=== PATIENT | male | born 1950 | race Caucasian/White ===

== ENCOUNTER 2020-10-01 07:36 | Outpatient (REF) | payer BC, SELFPAY ==
[2020-10-01 10:08] LABS: Hematocrit 40.3 % (42-52); Hemoglobin 13.7 g/dl (14.0-18.0); Mean Corpuscular Hemoglobin 29.5 pg (27.0-33.0); Mean Corpuscular Volume 86.9 fL (80-98); Mean Platelet Volume 12.1 fL (9.4-12.4); Platelet Count 165 X10*3/uL (160-400); Red Blood Count 4.64 X10*6/uL (4.60-5.80); Red Cell Distribution Width 13.5 % (11.0-16.0); White Blood Count 7.3 X10*3/uL (4.8-10.8)
[2020-10-01 10:54] LABS: Alanine Aminotransferase 24 U/L (0-40); Albumin Level 4.3 g/dL (3.5-5.0); Alkaline Phosphatase 87 U/L (39-117); Anion Gap 13 (12-20); Aspartate Amino Transferase 22 U/L (5-37); Bilirubin Direct 0.2 mg/dL (0.0-0.5); Bilirubin Total 0.5 mg/dL (0.0-1.0); Blood Urea Nitrogen 30 mg/dL (9-16); Calcium 8.9 mg/dL (8.4-10.2); Carbon Dioxide 26 mmol/L (22-29); Chloride 106 mmol/L (96-108); Cholesterol 154 mg/dL; Estimated Glomerular Filt Rate > 60; Glucose Fasting 97 mg/dL (60-99); HDL Cholesterol 55 mg/dL; LDL Cholesterol Calculated 79 mg/dl; Potassium 3.9 mmol/l (3.3-5.1); Sodium 141 mmol/L (135-145); Total Protein 7.3 g/dL (6.5-8.0); Triglycerides 101 mg/dL
[2020-10-01 11:00] LABS: Prostate Specific Antigen 1.16 ng/mL (<0.05-4.0)
== END 2020-10-01 07:37 | disposition home or self-care (01) ==
LOC: HO.10HDL 07:36
DX: E78.5 Hyperlipidemia, unspecified (principal); R53.83 Other fatigue; R35.1 Nocturia
CPT/HCPCS: 36415; 80053; 80061; 80076; 82248; 84153; 85027

== ENCOUNTER → 2020-11-18 08:26 | Outpatient (BNVA) | payer BC, SELFPAY | PROVIDERS: PCP Internal Medicine; Visit Provider Internal Medicine | DX: I95.0 Idiopathic hypotension (principal); I35.8 Other nonrheumatic aortic valve disorders; E78.5 Hyperlipidemia, unspecified; Z82.49 Family history of ischemic heart disease and other diseases of the circulatory system | CPT/HCPCS: 93005 ==

== ENCOUNTER → 2020-12-25 08:28 | Outpatient (REF) | payer BC, SELFPAY ==
--- NOTE | 2020-12-25 08:31 | CA_ITS ---
Transthoracic Echocardiogram Patient (Last, First, Middle): Shreyas Byrnes A Gender: Male Date of : 1950 Age: 70 Procedure Date: 12/25/2020 Procedure Type: Transthoracic Echocardiogram Location: OP Height: 167.64 cm Weight: 78.02 kg BSA: 1.88 m2 Heart Rate: bpm BP: 134 / 78 mmHg Sweet Pickled Fruit Maker: CATHERINE Referring MD: Wali Madrigal MD Tooth Cutter Contact Wheel: Jalil Lewis MD Symptoms: I95.0 - Idiopathic hypotension Study Quality: Fair ECG Rhythm: Sinus Conclusions: - 1. Normal LV systolic function with impaired relaxation filling pattern 2. Mild aortic stenosis and trivial to mild aortic regurgitation 3. Moderate mitral and calcification with mild mitral regurgitation 4. Normal RV systolic pressure 5. No pericardial effusion Findings Left Ventricle Normal left ventricular size, thickness, and systolic function. The visually estimated ejection fraction is between 60-65%. Spectral Doppler is indicative of an impaired relaxation filling pattern. E/E prime ratio is between 8 and 15 consistent with indeterminate filling pressures. Right Ventricle Normal right ventricular cavity size and systolic function. Atria Both atria are normal in size. There is lipomatous hypertrophy of the interatrial septum. Interatrial shunt cannot be excluded. Aortic Valve There is moderate calcification of the aortic valve. There is moderate thickening of the aortic valve. There is mild aortic valve stenosis. The mean gradient is 12 mmHg. The aortic valve area is 1.70 cm2. There is trace (trivial) aortic valve regurgitation. Mitral Valve There is mild anterior mitral leaflet thickening. There is moderate mitral annular calcification. There is mild mitral valve regurgitation. There is no mitral valve stenosis. Pulmonic Valve The pulmonic valve was not well visualized. Tricuspid Valve Likely normal tricuspid valve structure and function. There is mild tricuspid valve regurgitation. The right ventricular systolic pressure is normal. The right ventricular systolic pressure is 26 mmHg. Normal right atrial pressure. There is no evidence of pulmonary hypertension. Great Vessels All visible segments of the aorta are normal in size. The pulmonary artery was not well visualized. Venous The inferior vena cava is normal in size and collapses greater than 50% with inspiration. Pericardium/Pleural There is no evidence of pericardial effusion. Prior Study Comparison No prior study available for comparison. Measurements 2D Linear Measurements IVSd: 1.13 0.6-0.9/0.6-1.0 cm LVIDd: 4.06 3.9-5.3/4.2-5.9 cm LVIDd Index: 2.16 2.4-3.2/2.2-3.1 cm/m2 LVIDs: 2.54 2.0-3.6 cm LVPWd: 0.93 0.7-1.1 cm Ao Root: 2.70 2.1-3.5 cm LA Diam: 3.20 2.7-3.8/3.0-4.0 cm LAIDs Index: 1.70 1.5-2.3 cm/m2 LV Mass: 168.56 67-162/88-224 g LV Mass Index: 89.66 43-95/49-115 g/m2 LVOT Diam: 2.00 3.0+(-)1.3 cm 2D Systolic Function EF 4C: 55.00 >55% EF 2C: 72.70 >55% EF BiP: 67.30 >55% Mitral Valve MV Pk E: 0.75 MV PK A: 0.83 MV Decel Time: 222.00 E/A: 0.90 E'Lateral: 5.11 E'Medial: 4.68 E/E' Med: 16.10 E/E' Lat: 14.70 PHT: 65.00 MVA PHT: 3.38 Decel Pike: 3.39 Aortic Valve AoV Pk Neri: 2.37 AoV Mn Neri: 1.61 AoV VTI: 0.47 AoV Pk Grad: 22.00 Aov Mn Grad: 12.00 FRAN Cont.VTI: 1.70 AI Pk Neri: 3.91 AI Pike: 2.34 LVOT LVOT Pk Neri: 1.26 LVOT Mn Neri: 0.83 LVOT VTI: 0.25 LVOT Pk Grad: 6.00 LVOT Mn Grad: 3.00 LVOT Diam: 2.00 LVOT Area: 3.14 Diastolic Function MV Pk E: 0.75 MV Pk A: 0.83 E/A: 0.90 E'Medial: 4.68 E/E' Med: 16.10 E' Laterial: 5.11 E/E' Lat: 14.70 Tricuspid Valve TR Pk Neri: 2.38 TR Pk Grad: 23.00 RA Press: 3.00 RVSP: 26.00 Great Vessels Aorta Ao Root-2D: 2.70 2.0-3.7 cm Ao Asc: 3.40 2.1-3.4 cm Updated in Other Vendor System with Status of Final Jalil Lewis MD electronically signed on 12/26/2020 11:33:31 AM with status of Final
--- NOTE | 2020-12-25 08:31 | CA_ITS ---
Acquisition Time: 2020-12-25 09:26:17 Total Exercise Time: 00:06:20 Test Indications: Z82.49 Medications: SEE CHART Protocol: TARSHA Max HR: 146 BPM 97% of Pred: 149 BPM Max BP: 170/088 mmHG Max Work Load: 7.5 METS Exercise stress test using Tarsha protocol. Total of 6 min 20 sec. METS 7.90, TAPHR up to 87%. EKG without arrhythmias, no ischemic changes seen during exercise or in recovery. Normotensive response to exercise. Test reviewed with Dr. Madrigal. Referred By: Wali Madrigal Overread By: Antonietta Garber NP
== END ==
LOC: HO.CARD 08:28
PROVIDERS: PCP Internal Medicine; Visit Provider Internal Medicine
DX: I95.0 Idiopathic hypotension (principal); Z82.49 Family history of ischemic heart disease and other diseases of the circulatory system
CPT/HCPCS: 93016; 93017; 93018; 93306

== ENCOUNTER → 2020-12-31 08:14 | Outpatient (BNVA) | payer BC, SELFPAY | PROVIDERS: PCP Internal Medicine; Visit Provider Internal Medicine ==

== ENCOUNTER 2021-01-29 10:03 | Outpatient (REF) | payer BC, SELFPAY ==
--- NOTE | ~2021-01-29 | XR_ITS ---
EXAMINATION: XR ANKLE, LEFT CLINICAL INFORMATION: Pain COMPARISON: Radiographs left foot 04/08/2015, left ankle 08/01/2007 TECHNIQUE: AP, lateral, and mortise views of the left ankle. FINDINGS: There is no fracture, dislocation, destructive process. The malleoli are intact and the ankle mortise is symmetric. The talar dome shows no osteochondral lesion. There is no ankle joint narrowing or erosive change or visible chondrocalcinosis. The subtalar joint is unremarkable. The retrocalcaneal recess is preserved. There are are small plantar and borderline posterior calcaneal spurs. XR/XR ankle LT 2V IMPRESSION: Small posterior and plantar calcaneal spurs.
[2021-01-29 11:19] LABS: Uric Acid 4.5 mg/dL (3.4-7.0)
== END 2021-01-29 10:04 | disposition home or self-care (01) ==
LOC: HO.LAB 10:03
PROVIDERS: PCP Internal Medicine; Visit Provider Internal Medicine
DX: M25.572 Pain in left ankle and joints of left foot (principal); M10.9 Gout, unspecified
CPT/HCPCS: 36415; 73600; 84550

== ENCOUNTER 2021-04-21 06:56 | Outpatient (REF) | payer BC, SELFPAY ==
[2021-04-21 08:09] LABS: Cholesterol 141 mg/dL; HDL Cholesterol 50 mg/dL; LDL Cholesterol Calculated 73 mg/dl; Triglycerides 94 mg/dL
== END 2021-04-21 06:57 | disposition home or self-care (01) ==
LOC: HO.LAB 06:56
PROVIDERS: PCP Internal Medicine; Visit Provider Internal Medicine
DX: E11.9 Type 2 diabetes mellitus without complications (principal)
CPT/HCPCS: 36415; 80061

== ENCOUNTER → 2021-06-30 08:42 | Outpatient (BNVA) | payer BC, SELFPAY | PROVIDERS: PCP Internal Medicine; Referring Provider Internal Medicine; Visit Provider Internal Medicine ==

== ENCOUNTER 2021-10-09 06:46 | Outpatient (REF) | payer MEDICARE, BC, SELFPAY ==
[2021-10-09 07:46] LABS: Alanine Aminotransferase 21 U/L (0-40); Albumin Level 4.2 g/dL (3.5-5.0); Alkaline Phosphatase 83 U/L (39-117); Anion Gap 7 (12-20); Aspartate Amino Transferase 23 U/L (5-37); Bilirubin Total 0.9 mg/dL (0.0-1.0); Blood Urea Nitrogen 17 mg/dL (9-16); Calcium 9.7 mg/dL (8.4-10.2); Carbon Dioxide 30 mmol/L (22-29); Chloride 107 mmol/L (96-108); Cholesterol 160 mg/dL; Estimated Glomerular Filt Rate > 60; Glucose Fasting 90 mg/dL (60-99); HDL Cholesterol 55 mg/dL; LDL Cholesterol Calculated 81 mg/dl; Potassium 3.3 mmol/L (3.3-5.1); Sodium 141 mmol/L (135-145); Total Protein 7.5 g/dL (6.5-8.0); Triglycerides 122 mg/dL
== END 2021-10-09 06:47 | disposition home or self-care (01) ==
LOC: HO.LAB 06:46
PROVIDERS: PCP Internal Medicine; Visit Provider Internal Medicine
DX: Z00.00 Encounter for general adult medical examination without abnormal findings (principal)
CPT/HCPCS: 36415; 80053; 80061

== ENCOUNTER 2022-02-16 06:48 | Outpatient (REF) | payer MEDICARE, BC, SELFPAY ==
[2022-02-16 07:51] LABS: Cholesterol 150 mg/dL; HDL Cholesterol 60 mg/dL; LDL Cholesterol Calculated 73 mg/dl; Triglycerides 86 mg/dL
== END 2022-02-16 06:49 | disposition home or self-care (01) ==
LOC: HO.LAB 06:48
PROVIDERS: PCP Internal Medicine; Visit Provider Internal Medicine
DX: E11.9 Type 2 diabetes mellitus without complications (principal)
CPT/HCPCS: 36415; 80061

== ENCOUNTER → 2022-06-22 09:31 | Outpatient (REF) | payer MEDICARE, BC, SELFPAY ==
--- NOTE | 2022-06-22 09:33 | CA_ITS ---
Transthoracic Echocardiogram Patient (Last, First, Middle): Shreyas Byrnes A Gender: Male Date of : 1950 Age: 72 Procedure Date: 06/22/2022 Procedure Type: Transthoracic Echocardiogram Location: OP Height: 167.64 cm Weight: 73.48 kg BSA: 1.83 m2 Heart Rate: bpm BP: 120 / 82 mmHg Tunnel Heading Inspector: RIKA Referring MD: Wali Madrigal MD Symptoms: I35.0 - Nonrheumatic aortic (valve) stenosis Study Quality: Adequate ECG Rhythm: Sinus Conclusions: - The left ventricular systolic function is normal. The calculated ejection fraction is 61% by biplane method. - There is moderate calcification of the aortic valve. There is mild aortic valve stenosis. - There is mild mitral annular calcification. Findings Left Ventricle Normal left ventricular cavity size. The left ventricular systolic function is normal. The calculated ejection fraction is 61% by biplane method. There is no evidence of regional wall motion abnormalities. Diastolic function is normal for age. There is mild septal asymmetric hypertrophy. Right Ventricle Normal right ventricular cavity size and systolic function. Atria Both atria are normal in size. Aortic Valve There is moderate calcification of the aortic valve. There is mild aortic valve stenosis. The mean gradient is 17 mmHg. The aortic valve area is 1.85 cm2. There is trace (trivial) aortic valve regurgitation. Mitral Valve There is mild mitral annular calcification. There is trace mitral valve regurgitation. There is no mitral valve stenosis. Pulmonic Valve The pulmonic valve is likely normal. Tricuspid Valve Normal tricuspid valve structure. There is trace tricuspid valve regurgitation. There is no evidence of pulmonary hypertension. Great Vessels The asc aorta is normal in size. Venous The inferior vena cava is mildly dilated and collapses greater than 50% with inspiration. Pericardium/Pleural There is no evidence of pericardial effusion. Prior Study Comparison No significant change compared to prior study dated: 12/25/2020. Measurements 2D Linear Measurements IVSd: 1.07 0.6-0.9/0.6-1.0 cm LVIDd: 4.11 3.9-5.3/4.2-5.9 cm LVIDd Index: 2.25 2.4-3.2/2.2-3.1 cm/m2 LVIDs: 2.25 2.0-3.6 cm LVPWd: 0.97 0.7-1.1 cm LV Mass: 170.18 67-162/88-224 g LV Mass Index: 93.00 43-95/49-115 g/m2 LVOT Diam: 2.00 3.0+(-)1.3 cm 2D Systolic Function EF 4C: 59.00 >55% EF 2C: 65.30 >55% EF BiP: 61.40 >55% Mitral Valve MV Pk E: 0.84 MV PK A: 1.01 MV Decel Time: 294.00 E/A: 0.80 E'Lateral: 5.33 E'Medial: 5.22 E/E' Med: 16.20 E/E' Lat: 15.80 PHT: 86.00 MVA PHT: 2.56 Decel Toombs: 2.87 Aortic Valve AoV Pk Neri: 2.75 AoV Mn Neri: 1.94 AoV VTI: 0.62 AoV Pk Grad: 30.00 Aov Mn Grad: 17.00 FRAN Cont.VTI: 1.85 AI Pk Neri: 3.80 AI Toombs: 1.83 LVOT LVOT Pk Neri: 1.68 LVOT Mn Neri: 0.95 LVOT VTI: 0.37 LVOT Pk Grad: 11.00 LVOT Mn Grad: 5.00 LVOT Diam: 2.00 LVOT Area: 3.14 Diastolic Function MV Pk E: 0.84 MV Pk A: 1.01 E/A: 0.80 E'Medial: 5.22 E/E' Med: 16.20 E' Laterial: 5.33 E/E' Lat: 15.80 Right Ventricle TAPSE (mm): 24.30 TVS' Neri: 11.90 Tricuspid Valve TR Pk Neri: 2.30 TR Pk Grad: 21.00 RA Press: 8.00 RVSP: 29.00 Great Vessels Aorta Sinus of Valsalva: 3.64 2.0-3.[address] [place]: 2.85 1.7-3.4 cm Ao Asc: 3.60 2.1-3.4 cm Updated in Other Vendor System with Status of Final Wali Madrigal MD electronically signed on 06/22/2022 12:28:38 PM with status of Final
== END ==
LOC: HO.CARD 09:31
PROVIDERS: Visit Provider Internal Medicine
DX: I35.0 Nonrheumatic aortic (valve) stenosis (principal)
CPT/HCPCS: 93306

== ENCOUNTER → 2022-07-02 08:40 | Outpatient (BNVA) | payer MEDICARE, BC, SELFPAY | PROVIDERS: PCP Internal Medicine; Referring Provider Internal Medicine; Visit Provider Internal Medicine | DX: I95.0 Idiopathic hypotension (principal); I35.0 Nonrheumatic aortic (valve) stenosis; I05.9 Rheumatic mitral valve disease, unspecified; E78.5 Hyperlipidemia, unspecified; Z82.49 Family history of ischemic heart disease and other diseases of the circulatory system | CPT/HCPCS: 93005; 99212 ==

== ENCOUNTER 2022-08-24 07:14 | Outpatient (REF) | payer MEDICARE, BC, SELFPAY ==
[2022-08-24 07:21] LABS: MANUAL DIFF FLAG NO
[2022-08-24 07:58] LABS: Basophils Absolute Auto 0.1 X10*3/uL (0.0-0.2); Eosinophils Absolute Auto 0.2 X10*3/uL (0.0-0.4); Eosinophils Percent Auto 3.4 % (0-4); Hematocrit 39.7 % (42.0-52.0); Hemoglobin 13.8 g/dl (14.0-18.0); Imm Gran Abs Auto 0.02 X10*3/uL (0.00-0.03); Imm Gran Pct Auto 0.3 % (0.0-0.4); Lymphocytes Absolute Auto 2.8 X10*3/uL (1.2-4.9); Lymphocytes Percent Auto 39.4 % (20-40); Mean Corpuscular HGB Conc 34.8 g/dl (31.0-36.0); Mean Corpuscular Hemoglobin 30.5 pg (27.0-33.0); Mean Corpuscular Volume 87.6 fL (80.0-98.0); Mean Platelet Volume 11.7 fL (9.4-12.4); Monocytes Absolute Auto 0.6 X10*3/uL (0.1-1.2); Monocytes Percent Auto 8.7 % (2-11); Neutrophils Absolute Auto 3.3 x10*3/uL (2.0-8.3); Neutrophils Percent Auto 47.2 % (45-73); Platelet Count 156 X10*3/uL (160-400); Red Blood Count 4.53 X10*6/uL (4.60-5.80); Red Cell Distribution Width 13.2 % (11.0-16.0)
[2022-08-24 08:42] LABS: Alanine Aminotransferase 25 U/L (0-40); Albumin Level 4.2 g/dL (3.5-5.0); Alkaline Phosphatase 85 U/L (39-117); Aspartate Amino Transferase 23 U/L (5-37); Bilirubin Total 0.6 mg/dL (0.0-1.0); Blood Urea Nitrogen 20 mg/dL (9-16); Calcium 9.4 mg/dL (8.4-10.2); Cholesterol 150 mg/dL; Estimated Glomerular Filt Rate > 60; Glucose Fasting 92 mg/dL (60-99); HDL Cholesterol 58 mg/dL; LDL Cholesterol Calculated 78 mg/dl; Prostate Specific Antigen Scr 0.98 ng/mL (<0.05-4.0); Total Protein 7.3 g/dL (6.5-8.0); Triglycerides 73 mg/dL
[2022-08-24 09:19] LABS: Anion Gap 13 (12-20); Carbon Dioxide 27 mmol/L (22-29); Chloride 107 mmol/L (96-108); Potassium 3.7 mmol/L (3.3-5.1); Sodium 143 mmol/L (135-145)
== END 2022-08-24 07:15 | disposition home or self-care (01) ==
LOC: HO.LAB 07:14
PROVIDERS: PCP Internal Medicine; Visit Provider Internal Medicine
DX: Z00.00 Encounter for general adult medical examination without abnormal findings (principal); Z13.0 Encounter for screening for diseases of the blood and blood-forming organs and certain disorders involving the immune mechanism; Z12.5 Encounter for screening for malignant neoplasm of prostate
CPT/HCPCS: 36415; 80053; 80061; 84153; 85025

== ENCOUNTER 2022-12-02 08:11 | Outpatient (REF) | payer MEDICARE, BC, SELFPAY ==
[2022-12-02 09:03] LABS: Anion Gap 13 (12-20); Blood Urea Nitrogen 17 mg/dL (9-16); Calcium 9.7 mg/dL (8.4-10.2); Carbon Dioxide 27 mmol/L (22-29); Chloride 106 mmol/L (96-108); Cholesterol 164 mg/dL; Estimated Glomerular Filt Rate > 60; Glucose Random 92 mg/dL (60-115); HDL Cholesterol 53 mg/dL; LDL Cholesterol Calculated 94 mg/dl; Potassium 3.9 mmol/L (3.3-5.1); Sodium 142 mmol/L (135-145); Triglycerides 85 mg/dL
== END 2022-12-02 08:12 | disposition home or self-care (01) ==
LOC: HO.LAB 08:11
PROVIDERS: PCP Internal Medicine; Visit Provider Internal Medicine
DX: N20.0 Calculus of kidney (principal); E78.5 Hyperlipidemia, unspecified
CPT/HCPCS: 36415; 80048; 80061

== ENCOUNTER 2022-12-10 08:47 | Outpatient (REF) | payer MEDICARE, BC, SELFPAY ==
--- NOTE | ~2022-12-10 | CT_ITS ---
EXAMINATION: CT CHEST WITH CONTRAST CLINICAL INFORMATION: Solitary pulmonary nodule COMPARISON: None available. TECHNIQUE: Multidetector volumetric CT imaging of the chest was obtained after the administration of 50 mL of Omnipaque 350 intravenous contrast without immediate adverse reactions. Axial MIP volume rendering provided. Sagittal and coronal reformatted images were obtained. This CT examination was performed using dose optimization techniques as appropriate, variously including the following: *Automated exposure control *Adjustment of mA and/or kV according to patient size (this includes techniques or standardized protocols for targeted exams where dose is matched to indication/reason for exam; i.e. extremities or head) *Use of iterative reconstruction technique DLP: 116 mGy-cm FINDINGS: WIND TECHNICIAN: Hyperinflated lungs LUNGS: The lungs are hyperinflated and clear of acute pneumonic process. There are a few scattered pulmonary nodules visualized. A 1 mm nodule, right upper lobe, axial image 93/6; 2 mm nodule, right upper lobe, axial image 99/6; 2 mm nodule, right lower lobe medially, axial image 107/6; 2 mm nodule, right middle lobe, axial image 135/6; 57 mm nodule, right lower lobe, axial image 147/6; 5 mm nodule, left lower lobe, 147/6; 2 mm nodules, left lower lobe, axial image 150/6, 145/6; 7 mm nodule, right middle lobe, axial image 153/6. There are several additional nodules seen in lung bases which are 4 mm and less, axial image 151/6. MEDIASTINUM: The heart size and the great vessels are normal caliber. No pericardial effusion seen. There is moderate coronary artery calcifications. The central trachea and the bronchi are widely patent. The thyroid lobes are symmetrical and normal. PLEURA: There is no pleural effusion. No pleural mass or thickening. AXILLA: No lymphadenopathy. UPPER ABDOMEN: Visualized liver, spleen, pancreas and bilateral adrenal glands are unremarkable. OSSEOUS STRUCTURES: No aggressive lytic or sclerotic process seen. The paravertebral soft tissues are normal. CT/CT chest w IV con IMPRESSION: 1. Hyperinflated lungs with multiple bilateral pulmonary nodules. The largest nodule measures 7 mm in the right middle lobe. 2. No abnormal mediastinal or axillary lymphadenopathy seen. 3. Moderate coronary artery calcifications. 4. High Risk Patient: CT at 3-6 months, then CT at 18-24 months. Fleischner guidelines were followed.
[2022-12-10] MEDS: iohexoL 350 MG/ML 100 ML INFUS..BTL IV (09:17)
== END 2022-12-10 08:48 | disposition home or self-care (01) ==
LOC: HO.CT 08:47
PROVIDERS: Visit Provider Internal Medicine
DX: R91.1 Solitary pulmonary nodule (principal)
CPT/HCPCS: 71260; Q9967

== ENCOUNTER → 2023-01-07 08:46 | Outpatient (BNVA) | payer MEDICARE, BC, SELFPAY | PROVIDERS: PCP Internal Medicine; Visit Provider Urology | DX: N20.0 Calculus of kidney (principal) | CPT/HCPCS: 99202 ==

== ENCOUNTER 2023-01-20 09:35 | Outpatient (REF) | payer MEDICARE, BC, SELFPAY ==
--- NOTE | ~2023-01-20 | CT_ITS ---
EXAMINATION: CT ABDOMEN AND PELVIS WITHOUT CONTRAST CLINICAL INFORMATION: Kidney stone COMPARISON: Previous chest CT 12/10/2022 TECHNIQUE: Multidetector volumetric imaging was performed from the superior aspect of the liver through the pubic symphysis. Sagittal and coronal reformatted images were obtained on the technologist's workstation. This CT examination was performed using dose optimization techniques as appropriate, variously including the following: *Automated exposure control *Adjustment of mA and/or kV according to patient size (this includes techniques or standardized protocols for targeted exams where dose is matched to indication/reason for exam; i.e. extremities or head) *Use of iterative reconstruction technique DLP: 336 mGy-cm FINDINGS: LUNG BASES: Small bilateral pulmonary nodules. Largest pulmonary nodule measures 6 mm in the right middle lobe axial image 7. These appear unchanged from November [address] Small bilateral posterior diaphragmatic hernias containing fat. LIVER, GALLBLADDER, AND BILIARY TREE: The liver is normal in size, shape, and attenuation. No focal hepatic lesion or biliary ductal dilatation is present. The gallbladder is unremarkable with no evidence of radiopaque gallstones, gallbladder wall thickening, or obvious pericholecystic inflammatory changes. PANCREAS: Unremarkable. SPLEEN: Unremarkable. ADRENAL GLANDS: Unremarkable. KIDNEYS AND URETERS: The kidneys are normal in size, shape, and attenuation. No hydronephrosis, hydroureter, or calculi seen. No perinephric stranding. BLADDER: Enlarged prostate gland that protrudes into the base of the bladder. Bladder is otherwise unremarkable. GASTROINTESTINAL TRACT: Diverticulosis of the colon. The small and large bowel are otherwise unremarkable. The appendix is unremarkable. ABDOMINAL WALL: No significant hernia is appreciated. LYMPH NODES: Normal. VASCULAR: Severe atherosclerotic disease. PELVIC VISCERA: The prostate gland is slightly enlarged and protrudes into the base of the bladder. Prostate gland measures 3.5 x 4.5 cm in AP and transverse dimension. OSSEOUS STRUCTURES: Degenerative changes of the spine. CT/CT abdomen pelvis wo IV con IMPRESSION: No stone seen. Slightly enlarged prostate gland that protrudes into the base of the bladder. Diverticulosis. Severe atherosclerotic disease. Bilateral pulmonary nodules. These are unchanged from recent chest CT November 2022. Fleischner guidelines were followed.
== END 2023-01-20 09:36 | disposition home or self-care (01) ==
LOC: HO.CT 09:35
PROVIDERS: PCP Internal Medicine; Visit Provider Urology
DX: N20.0 Calculus of kidney (principal); R10.9 Unspecified abdominal pain
CPT/HCPCS: 74176

== ENCOUNTER 2023-02-17 10:45 | Outpatient (AMB) | payer MEDICARE, BC, SELFPAY ==
--- NOTE | 2023-02-17 10:47 | A.OFFVIS_ITS ---
Intake Intake Visit Reasons: 6w/ct(set)/[facility](set) Intake Note: Patient is present for follow up nephrolithiasis/CT/[facility] Medications: none Blood Thinner: none Loan Specialist Required: No Accompanied by: Self / Same As Patient Allergies No Known Allergies Allergy (Verified 03/02/23 09:43) Medication List - Last Reconciled 02/17/23 by Rodrigo Bhagat MD atorvastatin 80 mg PO DAILY ezetimibe 10 mg PO DAILY fludrocortisone 0.1 mg PO DAILY tamsulosin 0.4 mg PO DAILY HPI HPI Comments History of Present Illness Details Shreyas is a 73-year-old male who presents to the office who presents to the office for discussion of 24-hour urine test results. LV?01/06/23--Shreyas is a 72-year-old male who presents to the office as a new patient evaluation with history of nephrolithiasis. The patient has history of renal calculi 10 years ago. Mentions having recent episode of renal calculi earlier this year for which he visited the [facility] ER. Mentions having left side flank pain. Denies passing the stone. Denies gross hematuria.Denies right side flank pain.Former smoker and quit smoking in 1982. Evaluation-- Blood: trace, leukocytes: negative. On exam: No CVA tenderness noted. PSA results reviewed?08/24/22--0.98. Will obtain copy of imaging done at [facility], in discussion with the patient there was apparently a lung nodule visualized, he has had a CT chest done for further evaluation which was reviewed today. Plan:Advised to consume adequate amount of water. Advised to reduce down sodium consumption. CTAP without contrast was ordered. 24-hour urine collection was ordered. 02/17/23-- The patient is taking tamsulosin 0.4 mg daily without any reported side effects. Evaluation today-- Blood: negative, leukocytes: negative. CTAP results reviewed?01/20/23-- no renal calculi noted. Mildly enlarged prostate noted. Discussed 24 hour urine results?collected 01/21/23-- Total volume 1.61 L, Calcium 179 mg; Oxalate 29 mg, Sodium 137, Citrate 725 mg. Instructed on importance of fluid intake, Low oxalate diet, low sodium diet. Plan: Discussed to consume 2-2.5 liters of water daily. Repeat PSA blood work. Follow-up after one year. [facility] Medical History Family history of coronary artery disease Hyperlipidemia Hypotension Idiopathic hypotension Mitral annular calcification Nonrheumatic aortic (valve) stenosis Other and unspecified hyperlipidemia Surgical History History of hernia surgery History of nasal surgery Family History Mother No problems noted. Father High cholesterol History of open heart surgery Brother History of heart artery stent Social History Housing: House Alcohol intake: current Alcohol intake frequency: a few times a week Alcohol type: wine Patient Tobacco Use Status: Never used Tobacco e-Cigarette/Vaping Use: Never Used Second Hand Smoke Exposure: No service: Yes Current occupational status: retired Cognitive needs: No Hearing needs: No Vision needs: Yes (glasses) Review of Systems Const All systems reviewed & are unremarkable except as noted in HPI and below Reports no additional complaints Eyes Reports no additional complaints ENT Denies neck pain Card Denies leg edema Resp Denies cough GI Denies constipation Musc Reports no additional complaints and Denies neck pain Skin/Breast Denies rash and Denies unusual bruising Neuro Reports no additional complaints Psych Reports no additional complaints Endo Reports no additional complaints Duc/Lymph Reports no additional complaints Aller/Immun Reports no additional complaints Physical Exam Const General: healthy appearing, no acute distress and well developed Orientation/consciousness: patient oriented x3 HEENT Head: Yes normocephalic and Yes atraumatic Eyes Conjunctivae: conjunctivae normal Neck Neck: Yes normal visual inspection Chest Chest palpation & inspection: normal inspection of the chest Resp Effort & Inspection: normal respiratory effort Cardio Rate: regular rate GI Inspection: Yes normal to inspection General: Yes no CVA tenderness Back/Spine/Pelvis Back: no CVA tenderness Skin General skin exam: no rashes or lesions noted Neuro General: patient oriented x3 Extrem General: No pedal edema Psych Appearance: grossly normal Affect: normal affect Results AMB Urinalysis, Automated UA Leukoctes 0 Star/uL Last Edit by Emma Foster on 02/17/23 11:07 UA Nitrite Negative Last Edit by Brandyce Bress on 02/17/23 11:07 UA Urobilinogen 0.2 mg/dL Last Edit by Brandyce Bress on 02/17/23 11:07 UA Protein 0 mg/dL Last Edit by Jeanniee Aurass on 02/17/23 11:07 UA pH 6.0 Last Edit by Everettyce Bress on 02/17/23 11:07 UA Blood 0 Kervin/uL Last Edit by Jeanniee Bress on 02/17/23 11:07 UA Specific [place] 1.020 Last Edit by Brandyce Bress on 02/17/23 11:07 UA Ketone Negative Last Edit by Akademosronniee Bress on 02/17/23 11:07 UA Bilirubin 0 mg/dL Last Edit by Akademosrico Foster on 02/17/23 11:07 UA Glucose 0 mg/dL Last Edit by Emma Foster on 02/17/23 11:07 Results Reviewed Results Reviewed: Laboratory Last Values Urine pH (Auto) 6.0 02/17/23 10:53 Specific [place] (Auto) 1.020 02/17/23 10:53 Urine Protein (Auto) 0 mg/dL 02/17/23 10:53 Glucose (UA)(Auto) 0 mg/dL 02/17/23 10:53 Urine Ketones (Auto) Negative 02/17/23 10:53 Urine Blood (Auto) 0 Kervin/uL 02/17/23 10:53 Urine Nitrite (Auto) Negative 02/17/23 10:53 Urine Bilirubin (Auto) 0 mg/dL 02/17/23 10:53 Urine Urobilinogen (Auto) 0.2 mg/dL 02/17/23 10:53 Leukocyte Esterase (Auto) 0 Star/uL 02/17/23 10:53 Assessment & Plan Assessment & Plan (1) Screening PSA (prostate specific antigen): Code(s): Z12.5 - Encounter for screening for malignant neoplasm of prostate Plan Discussed to consume 2-2.5 liters of water daily. Repeat PSA blood work. Follow-up after one year. Orders: Orders PSA,Total (Free>4and<10) 9 Months Z12.5 - Encounter for screening for malignant neoplasm of prostate AMB Urinalysis Automated 02/17/23 Z13.9 - Encounter for screening, unspecified Coding Level of Care Code Est Pt Level 3 (39287) Diagnoses Screening PSA (prostate specific antigen) Z12.5
== END 2023-02-17 11:37 | disposition home or self-care (01) ==
LOC: HO.HUSH 10:45
PROVIDERS: PCP Internal Medicine; Visit Provider Urology
DX: Z12.5 Encounter for screening for malignant neoplasm of prostate (principal)
CPT/HCPCS: 99213

== ENCOUNTER → 2023-02-17 10:45 | Outpatient (BNVA) | payer MEDICARE, BC, SELFPAY | PROVIDERS: PCP Internal Medicine; Visit Provider Urology | DX: Z12.5 Encounter for screening for malignant neoplasm of prostate (principal) | CPT/HCPCS: 99212 ==

== ENCOUNTER → 2023-06-24 08:53 | Outpatient (REF) | payer MEDICARE, BC, SELFPAY ==
--- NOTE | ~2023-06-24 | NM_ITS ---
Exercise Myocardial perfusion study Indication: Screening for coronary artery disease. Family history Technique: The patient was brought in for an exercise perfusion study on 06/24/2023. Patient performed exercise as per Homero protocol and was injected 30 mCi of sestamibi was given intravenously one target HR was achieved. Images were obtained using the SPECT gamma camera interlaced with the gating device. Images were obtained in supine position. Resting perfusion study was performed on 06/28/2023. Patient was administered 30 mCi of sestamibi intravenously at rest. Images were then obtained in supine position. Images obtained with and without CT attenuation. Total DLP 69 mGy-cm. Images were processed with the software and compared side to side in short axis, horizontal long axis and vertical long axis views. Findings: The stress perfusion study showed non attenuated images show mildly reduced uptake in the inferior wall of the LV myocardium. Remainder of the LV myocardium is normally perfused. Attenuation corrected images show normal uptake of radiotracer in all segments of LV myocardium. The gated study shows normal LV systolic function with calculated LVEF of greater than 70%. LV cavity is normal in size. The gated study shows normal systolic wall thickening and contraction of all segments. There is no transient ischemic dilation. Resting study shows no change in perfusion pattern compared to stress perfusion study. Gating at rest reveals normal systolic wall motion with ejection fraction at greater than 70%. The findings are consistent with normal myocardial perfusion. NM/NM robin perf SPECT rest & str Impression: 1. Normal myocardial perfusion 2. Gated LVEF is greater than 70% 3. Transient ischemic dilatation not present Stress EKG is negative for ischemia at heart rate and workload achieved
--- NOTE | 2023-06-24 08:55 | CA_ITS ---
Acquisition Time: 2023-06-24 09:07:44 Total Exercise Time: 00:05:18 Test Indications: CAD Medications: SEE H Protocol: TARSHA Max HR: 134 BPM 91% of Pred: 146 BPM Max BP: 170/080 mmHG Max Work Load: 7.0 METS Exercise stress test exercise 5 min 18 sec of Tarsha protocol achieving 91% MPHR, without chest discomfort, with mild SOB, without arrhythmias, with normotensive response to exercise, without EKG changes for ischemia. Nuclear images pending. Test reviewed with Dr. Lewis Referred By: Wali Madrigal Overread By: Maria Ines Messer
== END ==
LOC: HO.CARD 08:53
PROVIDERS: PCP Internal Medicine; Visit Provider Internal Medicine
DX: Z13.89 Encounter for screening for other disorder (principal); Z82.49 Family history of ischemic heart disease and other diseases of the circulatory system
CPT/HCPCS: 78452; 93017; A9500

== ENCOUNTER → 2023-06-24 08:55 | Outpatient (BNV) | payer MEDICARE, BC, SELFPAY | PROVIDERS: PCP Internal Medicine; Visit Provider Nurse Practitioner | DX: R06.02 Shortness of breath (principal) | CPT/HCPCS: 78452; 93016; 93018 ==

== ENCOUNTER 2023-09-06 09:47 | Outpatient (AMB) | payer MEDICARE, BC, SELFPAY ==
[2023-09-06 09:48] VITALS: BP 132/64; PULSE 70; O2SAT 99; BMI 26.3
--- NOTE | 2023-09-06 09:48 | MHC.PC.OV ---
Vital Signs 09/06/23 09:48 Height 5 ft 6 in Weight 163 lb BMI 26.3 BP 132/64 Blood Pressure Location Lt brachial Position Sitting Pulse 70 Pulse Source Pulse Oximeter Pulse Oximetry (%) 99 Oxygen Delivery Method Room Air Intake Visit Reasons: PE Document Control Supervisor Required: No Haircutter: Not Required per policy Accompanied by: Self / Same As Patient Allergies No Known Allergies Allergy (Verified 09/06/23 09:49) Medication List - Last Reconciled 09/06/23 by Guanako Akers MD atorvastatin 80 mg PO DAILY ezetimibe 10 mg PO DAILY fludrocortisone 0.1 mg PO DAILY tamsulosin 0.4 mg PO DAILY Tobacco use date assessed: 03/02/23 Fall risk assessment: No Falls in past year Last assessed Fall Risk: 09/06/23 Dental Screening Dental Screen Date: 09/06/23 Did you have a dental visit in the last 12 months?: Yes Did you have a dental problem in the last 6 months where you did not have access to dental care?: No Was dental information given to patient?: Patient has dentist HPI PE HPI Details Hyperlipidemia and BPH; doing well PFSH Medical History Mitral annular calcification Nonrheumatic aortic (valve) stenosis Family history of coronary artery disease Other and unspecified hyperlipidemia Idiopathic hypotension Hypotension Hyperlipidemia Surgical History History of nasal surgery History of hernia surgery Family History Mother No problems noted. Father High cholesterol History of open heart surgery Brother History of heart artery stent Social History Housing: House Alcohol intake: current Alcohol intake frequency: a few times a week Alcohol type: wine Patient Tobacco Use Status: Never used Tobacco e-Cigarette/Vaping Use: Never Used Second Hand Smoke Exposure: No service: Yes Current occupational status: retired Cognitive needs: No Hearing needs: No Vision needs: Yes (glasses) Questionnaire Thrive Questionnaire Date Thrive assessed: 11/25/22 LINDA-7 AMB Questionnaire LINDA-7 Date LINDA - 7 assessed: 11/25/22 Source: Developed by Drs. Jaspreet Steven, Anjana Borjas, Steve Willoughby and colleagues, with an educational suzi from [employer]. Review of Systems Const Denies chills, Denies fatigue, Denies headache(s) and Denies weight loss Eyes Denies change in vision, Denies diplopia and Denies eye pain ENT Denies vertigo, Denies dizziness, Denies headache(s) and Denies nasal discharge Card Denies chest pain, Denies rapid heart rate and Denies dyspnea on exertion Resp Denies chest congestion, Denies cough, Denies pain with cough and Denies dyspnea on exertion GI Denies abdominal pain, Denies hematochezia and Denies change in bowel habits Musc Denies myalgias, Denies arthralgias and Denies joint swelling Skin/Breast Denies lesions and Denies unusual bruising Neuro Denies vertigo, Denies dizziness, Denies headache(s) and Denies focal weakness Endo Denies fatigue Physical exam (Primary Care) Vital Signs: Last Vital Signs Pulse 70 09/06/23 09:48 BP 132/64 09/06/23 09:48 Pulse Ox 99 09/06/23 09:48 Oxygen Delivery Method Room Air 09/06/23 09:48 BMI result Body Mass Index 26.3 Tobacco/Smoking Status: Tobacco use Status Tobacco use date assessed 03/02/23 09/06/23 09:50 Patient Tobacco Use Status Never used Tobacco 09/06/23 09:50 e-Cigarette/Vaping Use Never Used 09/06/23 09:50 Thrive Assessment: Date of Thrive Assessment Date Thrive assessed 11/25/22 09/06/23 09:50 Const General: cooperative, healthy appearing and no acute distress Orientation/consciousness: oriented to person, oriented to place and oriented to time [facility] Head: Yes normal to inspection, Yes normocephalic and Yes atraumatic Mouth: Normal oral and palatal mucosa present and tongue normal Throat: Yes posterior oropharynx normal and Yes uvula midline Eyes General: appearance normal, both eyes and all related structures Neck Neck: Yes normal visual inspection, Yes full ROM and Yes no lymphadenopathy Thyroid: Thyroid normal Carotids: normal carotid upstroke Chest Chest palpation & inspection: normal inspection of the chest Resp Effort & Inspection: normal respiratory effort and able to speak in complete sentences Auscultation: clear to auscultation bilaterally Cardio Jugular venous distension: no JVD Palpation: normal PMI Rate: regular rate Rhythm: regular rhythm Heart sounds: S1 normal heart sound present and S2 normal heart sound present GI Inspection: Yes normal to inspection Palpation (GI): Soft to palpation and No hepatosplenomegaly present Auscultation: normal bowel sounds General: Yes no CVA tenderness Back/Spine/Pelvis Back: no CVA tenderness Skin General skin exam: no rashes or lesions noted Neuro General: oriented to person, oriented to place and oriented to time Extrem General: Yes normal to inspection and Yes full ROM Assessment and Plan Assessment & Plan (1) Physical exam: Code(s): Z00.00 - Encounter for general adult medical examination without abnormal findings Plan: do labs (2) Hyperlipidemia: Code(s): E78.5 - Hyperlipidemia, unspecified Plan: stable; same rx Coding Level of Care Code Est Pt Prev Care >65y(71523) Diagnoses Physical exam Z00.00 Hyperlipidemia E78.5
== END 2023-09-06 10:05 | disposition home or self-care (01) ==
PROVIDERS: PCP Internal Medicine; Visit Provider Internal Medicine
DX: Z00.00 Encounter for general adult medical examination without abnormal findings (principal); E78.5 Hyperlipidemia, unspecified
CPT/HCPCS: 99397

== ENCOUNTER 2023-09-06 12:35 | Outpatient (AMB) | payer MEDICARE, BC, SELFPAY ==
[2023-09-06 12:44] VITALS: BP 100/70; PULSE 67; BMI 28.2
--- NOTE | 2023-09-06 12:44 | MHC.OFFVIS ---
Intake Vital Signs 09/06/23 12:44 Height 5 ft 4 in Weight 164 lb 7.437 oz BMI 28.2 BP 100/70 Blood Pressure Location Rt brachial Position Sitting Pulse 67 Intake Visit Reasons: 1 year follow up, after stress test Intake Note: 1 year follow up Pharmacy Operations Specialist Required: No Accompanied by: Self / Same As Patient Allergies No Known Allergies Allergy (Verified 09/06/23 12:45) Medication List - Last Reconciled 09/06/23 by Wali Madrigal MD atorvastatin 80 mg PO DAILY ezetimibe 10 mg PO DAILY fludrocortisone 0.1 mg PO DAILY tamsulosin 0.4 mg PO DAILY HPI HPI Comments History of Present Illness Details Shreyas returns for follow-up. He has a history of hypotension for which she takes Florinef and he has done this long-term. Formally, patient of . Overall, he is doing good. No specific complaints like angina or shortness of breath or in fact anything cardiac sounding. He is fairly active with no limitations at all. He is on medication for dyslipidemia. There is a family history of cardiac issues. His brother has had coronary stents and he is younger than the patient. Father has had bypass surgeries in his 50s and 60s and . Overall, doing well. [facility] Medical History Mitral annular calcification Nonrheumatic aortic (valve) stenosis Family history of coronary artery disease Other and unspecified hyperlipidemia Idiopathic hypotension Hypotension Hyperlipidemia Surgical History History of nasal surgery History of hernia surgery Family History Mother No problems noted. Father High cholesterol History of open heart surgery Brother History of heart artery stent Social History Housing: House Alcohol intake: current Alcohol intake frequency: a few times a week Alcohol type: wine Patient Tobacco Use Status: Never used Tobacco e-Cigarette/Vaping Use: Never Used Second Hand Smoke Exposure: No service: Yes Current occupational status: retired Cognitive needs: No Hearing needs: No Vision needs: Yes (glasses) Review of Systems Const Denies weakness ENT Denies dizziness Card Denies chest pain, Denies chest pain with activity, Denies syncope, Denies rapid heart rate, Denies pedal edema, Denies edema, Denies leg edema, Denies lightheadedness, Denies palpitations, Denies dyspnea, Denies dyspnea on exertion and Denies orthopnea Resp Denies cough, Denies dyspnea and Denies dyspnea on exertion GI Denies hematochezia and Denies change in stool character Musc Denies abnormal gait, Denies muscle cramps, Denies muscle weakness, Denies numbness, Denies radiating pain into limb and Denies tingling Neuro Denies abnormal gait, Denies dizziness, Denies syncope, Denies numbness, Denies tingling and Denies weakness Endo Denies palpitations Physical Exam Vital Signs: Last Vital Signs Pulse 67 09/06/23 12:44 BP 100/70 09/06/23 12:44 BMI result Body Mass Index 28.2 Const General: comfortable and no acute distress Orientation/consciousness: patient oriented x3 HEENT Other: Unremarkable Head: Yes normal to inspection Neck Neck: Yes normal visual inspection Chest Chest palpation & inspection: normal inspection of the chest Resp Auscultation: clear to auscultation bilaterally Cardio Palpation: normal PMI Heart sounds: S1 normal heart sound present, S2 normal heart sound present, no gallops, Murmur heart sound present systolic II/ and at the right sternal border and no rubs GI Palpation (GI): Soft to palpation Back/Spine/Pelvis Other: unremarkable Skin General skin exam: no rashes or lesions noted Neuro General: patient oriented x3 Extrem General: Yes normal to inspection Psych Mental Status: mental status grossly normal Office Procedures EKG Details: EKG shows sinus rhythm at 67/Min; no significant ST-T changes and otherwise unremarkable[place]. [id number], Complete Assessment & Plan Assessment & Plan (1) Atherosclerotic cardiovascular disease: Code(s): I25.10 - Atherosclerotic heart disease of mechoopda coronary artery without angina pectoris Plan: On gated chest CT scan shows coronary artery calcification. Myocardial perfusion imaging study unremarkable at 7 Mets exercise capacity. Clinically, he does not have any symptoms. Continue statins and Zetia. LDL seems reasonable. (2) Nonrheumatic aortic (valve) stenosis: Code(s): I35.0 - Nonrheumatic aortic (valve) stenosis Plan: Echocardiogram with moderate aortic valve calcification mild stenosis. Can be followed periodically. (3) Mitral annular calcification: Code(s): I05.9 - Rheumatic mitral valve disease, unspecified Plan: There is evidence of mitral annular calcification but no significant valvular dysfunction. No specific management. (4) Other and unspecified hyperlipidemia: Code(s): E78.5 - Hyperlipidemia, unspecified Plan: On statins and Zetia. LDL levels are in the 70s, 80s and some 90s. (5) Idiopathic hypotension: Code(s): I95.0 - Idiopathic hypotension Plan: Remains on fludrocortisone long-term. He states that he takes at alternate days. Orders: Orders CA echo transthoracic complete 51 Weeks I35.0 - Nonrheumatic aortic (valve) stenosis Coding Level of Care Code Est Pt Level 4 (25255) Diagnoses Atherosclerotic cardiovascular disease I25.10 Nonrheumatic aortic (valve) stenosis I35.0 Mitral annular calcification I05.9 Other and unspecified hyperlipidemia E78.5 Idiopathic hypotension I95.0 CPT Codes EKG - CPT: 82759-[id number], Complete ([id number])
== END 2023-09-06 12:59 | disposition home or self-care (01) ==
PROVIDERS: PCP Internal Medicine; Visit Provider Internal Medicine
DX: I25.10 Atherosclerotic heart disease of native coronary artery without angina pectoris (principal); I35.0 Nonrheumatic aortic (valve) stenosis; I05.9 Rheumatic mitral valve disease, unspecified; E78.5 Hyperlipidemia, unspecified; I95.0 Idiopathic hypotension
CPT/HCPCS: 93010; 99214

== ENCOUNTER → 2023-09-06 12:35 | Outpatient (BNVA) | payer MEDICARE, BC, SELFPAY | PROVIDERS: PCP Internal Medicine; Visit Provider Internal Medicine | DX: I25.10 Atherosclerotic heart disease of native coronary artery without angina pectoris (principal); I35.0 Nonrheumatic aortic (valve) stenosis; I05.9 Rheumatic mitral valve disease, unspecified; I95.0 Idiopathic hypotension; E78.5 Hyperlipidemia, unspecified | CPT/HCPCS: 93005; 99212 ==

== ENCOUNTER 2023-09-09 08:19 | Outpatient (REF) | payer MEDICARE, BC, SELFPAY ==
[2023-09-09 08:46] LABS: MANUAL DIFF FLAG NO
[2023-09-09 09:05] LABS: Basophils Absolute Auto 0.1 X10*3/uL (0.0-0.2); Basophils Percent Auto 0.7 % (0-2); Eosinophils Absolute Auto 0.1 X10*3/uL (0.0-0.4); Eosinophils Percent Auto 1.9 % (0-4); Hematocrit 38.3 % (42.0-52.0); Hemoglobin 13.1 g/dl (14.0-18.0); Imm Gran Abs Auto 0.02 X10*3/uL (0.00-0.03); Imm Gran Pct Auto 0.3 % (0.0-0.4); Lymphocytes Absolute Auto 1.6 X10*3/uL (1.2-4.9); Lymphocytes Percent Auto 21.6 % (20-40); Mean Corpuscular HGB Conc 34.2 g/dl (31.0-36.0); Mean Corpuscular Hemoglobin 29.9 pg (27.0-33.0); Mean Corpuscular Volume 87.4 fL (80.0-98.0); Mean Platelet Volume 11.7 fL (9.4-12.4); Monocytes Absolute Auto 0.5 X10*3/uL (0.1-1.2); Monocytes Percent Auto 6.9 % (2-11); Neutrophils Absolute Auto 5.1 x10*3/uL (2.0-8.3); Neutrophils Percent Auto 68.6 % (45-73); Platelet Count 159 X10*3/uL (160-400); Red Blood Count 4.38 X10*6/uL (4.60-5.80); Red Cell Distribution Width 13.4 % (11.0-16.0); White Blood Count 7.4 X10*3/uL (4.8-10.8)
[2023-09-09 15:26] LABS: Alanine Aminotransferase 19 U/L (0-40); Albumin Level 4.1 g/dL (3.5-5.0); Alkaline Phosphatase 86 U/L (39-117); Anion Gap 10 (12-20); Aspartate Amino Transferase 21 U/L (5-37); Bilirubin Total 0.6 mg/dL (0.0-1.0); Blood Urea Nitrogen 25 mg/dL (9-16); Calcium 9.5 mg/dL (8.4-10.2); Carbon Dioxide 28 mmol/L (22-29); Chloride 107 mmol/L (96-108); Cholesterol 139 mg/dL (<200); Estimated Glomerular Filt Rate > 60; Glucose Fasting 96 mg/dL (60-99); HDL Cholesterol 54 mg/dL (>40); LDL Cholesterol Calculated 71 mg/dL (<100); Potassium 3.8 mmol/L (3.3-5.1); Sodium 141 mmol/L (135-145); Total Protein 7.8 g/dL (6.5-8.0); Triglycerides 74 mg/dL (<150)
== END 2023-09-09 08:20 | disposition home or self-care (01) ==
LOC: HO.LAB 08:19
PROVIDERS: PCP Internal Medicine; Visit Provider Internal Medicine
DX: E78.5 Hyperlipidemia, unspecified (principal); D64.9 Anemia, unspecified; N28.9 Disorder of kidney and ureter, unspecified
CPT/HCPCS: 36415; 80053; 80061; 85025

== ENCOUNTER 2023-10-13 11:08 | Outpatient (AMB) | payer MEDICARE, BC, SELFPAY ==
[2023-10-13 11:17] VITALS: BP 116/78; PULSE 81; TEMP 36.8; O2SAT 99; BMI 28.5
--- NOTE | 2023-10-13 11:17 | A.OFFPC_ITS ---
Vital Signs 10/13/23 11:17 Height 5 ft 4 in Weight 166 lb 0.8 oz BMI 28.5 BP 116/78 Blood Pressure Location Lt brachial Position Sitting Pulse 81 Pulse Source Pulse Oximeter Temp 98.2 F Temp Source Oral Pulse Oximetry (%) 99 Oxygen Delivery Method Room Air Intake Visit Reasons: cold symptoms Intake Note: pt states cough and congestion X5-6weeks with no relief Personal Counselor Required: No Allergies No Known Allergies Allergy (Verified 10/13/23 11:30) Medication List - Last Reconciled 10/13/23 by Hilary Ocampo, PATENT PARALEGAL- atorvastatin 80 mg PO DAILY ezetimibe 10 mg PO DAILY fludrocortisone 0.1 mg PO DAILY tamsulosin 0.4 mg PO DAILY Tobacco use date assessed: 10/13/23 Fall risk assessment: No Falls in past year Last assessed Fall Risk: 10/13/23 HPI HPI Comments History of Present Illness Details Here today with c/o cough present for 5-6 weeks cough is productive , nonbloody low energy, nasal congestion , admits to feeling mildly short of breath after doing daily activities not associated with chest pain. former smoker Denies fever, chills, sore throat, ear pain, chest pain. Tried otc cold medications at home w/ little or short lived relief. UTD on vaccines [facility] Medical History Mitral annular calcification Nonrheumatic aortic (valve) stenosis Family history of coronary artery disease Other and unspecified hyperlipidemia Idiopathic hypotension Hypotension Hyperlipidemia Surgical History History of nasal surgery History of hernia surgery Family History Mother No problems noted. Father High cholesterol History of open heart surgery Brother History of heart artery stent Social History Housing: House Alcohol intake: current Alcohol intake frequency: a few times a week Alcohol type: wine Patient Tobacco Use Status: Never used Tobacco e-Cigarette/Vaping Use: Never Used Second Hand Smoke Exposure: No service: Yes Current occupational status: retired Cognitive needs: No Hearing needs: No Vision needs: Yes (glasses) Questionnaire Thrive Questionnaire Date Thrive assessed: 10/13/23 AUDIT C Alcohol Use Questionnaire (AUDIT-C) 1. How often do you have a drink containing alcohol?: 2-3 times a week 2. How many drinks containing alcohol do you have on a typical day when you are drinking?: 1 or 2 Total Score: 3 Score Reviewed/Action Taken: Yes LINDA-7 AMB Questionnaire LINDA-7 Date LINDA - 7 assessed: 10/13/23 Source: Developed by Drs. Jaspreet Steven, Anjana Borjas, Steve Willoughby and colleagues, with an educational suzi from [employer] Review of Systems Const All systems reviewed & are unremarkable except as noted in HPI and below Physical exam (Primary Care) Vital Signs: Last Vital Signs Temp 98.2 F 10/13/23 11:17 Pulse 81 10/13/23 11:17 BP 116/78 10/13/23 11:17 Pulse Ox 99 10/13/23 11:17 Oxygen Delivery Method Room Air 10/13/23 11:17 BMI result Body Mass Index 28.5 Tobacco/Smoking Status: Tobacco use Status Tobacco use date assessed 10/13/23 10/13/23 11:24 Patient Tobacco Use Status Never used Tobacco 10/13/23 11:24 e-Cigarette/Vaping Use Never Used 10/13/23 11:24 Thrive Assessment: Date of Thrive Assessment Date Thrive assessed 10/13/23 10/13/23 11:24 Const Other: awake alert nad TM intact and clear on right, cerumen in EAC on left nares with mucoid d/c, turbinates erythematous and edematous pnd, pharynx mildly erythematous ls ctab RRR + 2/6 systolic murmur, RSB Results Reviewed Results Reviewed: [facility] 08/[address] Akers - used to dose AB Assessment and Plan Assessment & Plan (1) Sinusitis: Code(s): J32.9 - Chronic sinusitis, unspecified Qualifiers: Sinusitis location: pansinusitis Chronicity: acute Recurrence: non- recurrent Qualified Code(s): J01.40 - Acute pansinusitis, unspecified Plan: Total time spent caring for the patient today was 30 minutes. This includes time spent before the visit reviewing the chart, time spent during the visit, and time spent after the visit on documentation (2) PND (post-nasal drip): Code(s): R09.82 - Postnasal drip Medications: New amoxicillin-pot clavulanate 875-125 mg 1 tab PO BID 7 days 14 tabs 0RF fluticasone propionate 50 mcg/actuation administer into each nostril 1 spray intranasal BID 16 grams 0RF Patient Instructions: Exam today suggested sinusitis as the cause for his cough. He should take antibiotics with food as directed and use the Flonase. He should avoid any [id number] nasal sprays. If after course of treatment his symptoms continue especially the exertional dyspnea and feeling winded, he should follow- up with his primary care provider. Advised to use [id number] medications sparingly okay to stop using if not needed. Coding Level of Care Code Est Pt Level 4 (94394) Diagnoses Acute non-recurrent pansinusitis J01.40 Sinusitis location: pansinusitis Chronicity: acute Recurrence: non-recurrent PND (post-nasal drip) R09.82
== END 2023-10-13 11:41 | disposition home or self-care (01) ==
LOC: HO.HMGWIW 11:08
PROVIDERS: PCP Internal Medicine
DX: J01.40 Acute pansinusitis, unspecified (principal); R09.82 Postnasal drip
CPT/HCPCS: 99214

== ENCOUNTER 2024-02-03 09:42 | Outpatient (AMB) | payer MEDICARE, BC, SELFPAY ==
[2024-02-03 09:51] VITALS: BP 120/84; PULSE 75; O2SAT 98; BMI 28.7
--- NOTE | 2024-02-03 09:51 | A.OFFPC_ITS ---
Vital Signs 02/03/24 09:51 Height 5 ft 4 in Weight 167 lb BMI 28.7 BP 120/84 Blood Pressure Location Lt brachial Position Standing Pulse 75 Pulse Source Pulse Oximeter Pulse Oximetry (%) 98 Oxygen Delivery Method Room Air Intake Visit Reasons: medical issues Stock House Worker Required: No Back Shoe Cutter: Not Required per policy Accompanied by: Self / Same As Patient Allergies No Known Allergies Allergy (Verified 02/03/24 09:52) Medication List - Last Reconciled 02/04/24 by Guanako Akers MD albuterol sulfate 90 mcg/actuation (ProAir HFA) 2 puffs inhalation Q4-6H PRN amoxicillin-pot clavulanate 875-125 mg 1 tab PO BID 7 days atorvastatin 80 mg PO DAILY ezetimibe 10 mg PO DAILY fludrocortisone 0.1 mg PO DAILY fluticasone propionate 50 mcg/actuation 1 spray intranasal BID tamsulosin 0.4 mg PO DAILY Tobacco use date assessed: 10/13/23 Fall risk assessment: No Falls in past year Last assessed Fall Risk: 02/03/24 Dental Screening Dental Screen Date: 02/03/24 Did you have a dental visit in the last 12 months?: Yes Did you have a dental problem in the last 6 months where you did not have access to dental care?: No Was dental information given to patient?: Patient has dentist HPI medical issues HPI Details right thumb pain PCP joint PFSH Medical History Mitral annular calcification Nonrheumatic aortic (valve) stenosis Family history of coronary artery disease Other and unspecified hyperlipidemia Idiopathic hypotension Hypotension Hyperlipidemia Surgical History History of nasal surgery History of hernia surgery Family History Mother No problems noted. Father High cholesterol History of open heart surgery Brother History of heart artery stent Social History Housing: House Alcohol intake: current Alcohol intake frequency: a few times a week Alcohol type: wine Patient Tobacco Use Status: Never used Tobacco e-Cigarette/Vaping Use: Never Used Second Hand Smoke Exposure: No service: Yes Current occupational status: retired Cognitive needs: No Hearing needs: No Vision needs: Yes (glasses) Questionnaire PHQ-9 Over the last 2 weeks, how often have you been bothered by any of the following problems? 1. Little interest or pleasure in doing things: not at all 2. Feeling down, depressed, or hopeless: not at all 3. Trouble falling or staying asleep, or sleeping too much: not at all 4. Feeling tired or having little energy: not at all 5. Poor appetite or overeating: not at all 6. Feeling bad about yourself - or that you are a failure or have let yourself or your family down: not at all 7. Trouble concentrating on things, such as reading the newspaper or watching television: not at all 8. Moving or speaking so slowly that other people could have noticed. Or the opposite - being so fidgety or restless that you have been moving around a lot more than usual: not at all 9. Thoughts that you would be better off or of hurting yourself in some way: not at all Total score: 0 Depression Screening Interpretation: Negative Depression Screening Done: Yes 57280 - PHQ-9 Billing: Yes Source: Developed by Drs. Jaspreet Steven, Anjana Borjas, Steve Willoughby and colleagues, with an educational suzi from [employer]. Thrive Questionnaire Date Thrive assessed: 10/13/23 LINDA-7 AMB Questionnaire LINDA-7 Date LINDA - 7 assessed: 10/13/23 Source: Developed by Drs. Jaspreet Steven, Anjana Borjas, Steve Willoughby and colleagues, with an educational suzi from [employer]. Review of Systems Const Denies chills, Denies headache(s) and Denies weight loss ENT Denies headache(s) Card Denies chest pain, Denies syncope, Denies irregular heart rhythm and Denies dyspnea Resp Denies chest congestion, Denies cough and Denies dyspnea GI Denies abdominal pain, Denies change in stool character, Denies nausea and Denies vomiting Musc Denies deformity and Denies joint swelling Neuro Denies syncope and Denies headache(s) Physical exam (Primary Care) Vital Signs: Last Vital Signs Pulse 75 02/03/24 09:51 BP 120/84 02/03/24 09:51 Pulse Ox 98 02/03/24 09:51 Oxygen Delivery Method Room Air 02/03/24 09:51 BMI result Body Mass Index 28.7 Tobacco/Smoking Status: Tobacco use Status Tobacco use date assessed 10/13/23 02/03/24 09:56 Patient Tobacco Use Status Never used Tobacco 02/03/24 09:56 e-Cigarette/Vaping Use Never Used 02/03/24 09:56 PHQ-9: PHQ-9 Score PHQ-9: Total score 0 02/03/24 09:56 Depression Screening Interpretation: Negative Thrive Assessment: Date of Thrive Assessment Date Thrive assessed 10/13/23 02/03/24 09:56 Const General: cooperative, comfortable, no acute distress and alert Neck Neck: Yes no lymphadenopathy Thyroid: Thyroid normal Resp Effort & Inspection: normal respiratory effort Auscultation: clear to auscultation bilaterally Percussion: percussion normal Cardio Jugular venous distension: no JVD Palpation: normal PMI Rate: regular rate Rhythm: regular rhythm Heart sounds: S1 normal heart sound present and S2 normal heart sound present GI Inspection: Yes normal to inspection Palpation (GI): No hepatosplenomegaly present Skin General skin exam: no rashes or lesions noted Extrem General: Yes no clubbing, cyanosis or edema Assessment and Plan Assessment & Plan (1) Thumb pain: Code(s): M79.646 - Pain in unspecified finger(s) Plan: rx and xr Orders: Orders Lipid Panel Today Z13.220 - Encounter for screening for lipoid disorders Thyroid Stimulating Hormone Today Z13.29 - Encounter for screening for other suspected endocrine disorder Complete Blood Count Auto Diff Today Z13.0 - Encounter for screening for diseases of the blood and blood-forming organs and certain disorders involving the immune mechanism Comprehensive [place]. Panel Fast Today Z13.9 - Encounter for screening, unspecified XR chest 2V 02/03/24 R05.9 - Cough, unspecified ECG 12 lead EKG Today R53.83 - Other fatigue Medications: New albuterol sulfate 90 mcg/actuation (ProAir HFA) 2 puffs inhalation Q4-6H PRN 18 grams 8RF bronchospasm Coding Level of Care Code Est Pt Level 3 (73030) Diagnoses Thumb pain M79.646
== END 2024-02-03 10:16 | disposition home or self-care (01) ==
PROVIDERS: PCP Internal Medicine; Visit Provider Internal Medicine
DX: M79.646 Pain in unspecified finger(s) (principal)
CPT/HCPCS: 99213

== ENCOUNTER 2024-02-03 10:26 | Outpatient (REF) | payer MEDICARE, BC, SELFPAY ==
--- NOTE | ~2024-02-03 | XR_ITS ---
EXAMINATION: XR CHEST CLINICAL INFORMATION: Cough, unspecified. COMPARISON: None available. TECHNIQUE: 2 views of the chest were obtained. FINDINGS: The lungs are hyperinflated. Degenerative changes in the thoracic spine. Dextroscoliosis of the thoracolumbar spine. There is no gross pneumothorax. Mild biapical pleural thickening. Streaky bibasilar opacities may represent atelectasis/scar, although an inflammatory/infectious process should also be considered in the appropriate clinical setting. Possible trace bilateral pleural effusions. XR/XR chest 2V IMPRESSION: Streaky bibasilar opacities may represent atelectasis/scar, although an inflammatory/infectious process should also be considered in the appropriate clinical setting. Possible trace bilateral pleural effusions.
== END 2024-02-03 10:27 | disposition home or self-care (01) ==
LOC: HO.XRAY 10:26
PROVIDERS: PCP Internal Medicine; Visit Provider Internal Medicine
DX: R05.9 Cough, unspecified (principal)
CPT/HCPCS: 71046

== ENCOUNTER 2024-02-04 08:15 | Outpatient (REF) | payer MEDICARE, BC, SELFPAY ==
[2024-02-04 08:28] LABS: MANUAL DIFF FLAG NO
--- NOTE | 2024-02-04 08:29 | ECG_ITS ---
Test Reason : FATIGUE Blood Pressure : / mmHG Vent. Rate : 066 BPM Atrial Rate : 066 BPM P-R Int : 160 ms QRS Dur : 094 ms QT Int : 398 ms P-R-T Axes : 050 053 047 degrees QTc Int : 417 ms Sinus rhythm with Premature atrial complexes Otherwise normal ECG When compared with ECG of 26-NOV-2003 11:06, Premature atrial complexes are now Present Referred By: Guanako Akers Electronically Signed By:Aleksandr Fair
[2024-02-04 08:57] LABS: Basophils Absolute Auto 0.1 X10*3/uL (0.0-0.2); Basophils Percent Auto 1.3 % (0-2); Eosinophils Absolute Auto 0.2 X10*3/uL (0.0-0.4); Eosinophils Percent Auto 3.2 % (0-4); Hematocrit 39.4 % (42.0-52.0); Hemoglobin 13.5 g/dl (14.0-18.0); Imm Gran Abs Auto 0.01 X10*3/uL (0.00-0.03); Imm Gran Pct Auto 0.2 % (0.0-0.4); Lymphocytes Percent Auto 32.2 % (20-40); Mean Corpuscular HGB Conc 34.3 g/dl (31.0-36.0); Mean Corpuscular Hemoglobin 29.8 pg (27.0-33.0); Mean Platelet Volume 11.4 fL (9.4-12.4); Monocytes Absolute Auto 0.5 X10*3/uL (0.1-1.2); Monocytes Percent Auto 8.4 % (2-11); Neutrophils Absolute Auto 3.5 x10*3/uL (2.0-8.3); Neutrophils Percent Auto 54.7 % (45-73); Platelet Count 181 X10*3/uL (160-400); Red Blood Count 4.53 X10*6/uL (4.60-5.80); Red Cell Distribution Width 14.1 % (11.0-16.0); White Blood Count 6.3 X10*3/uL (4.8-10.8)
[2024-02-04 09:39] LABS: Alanine Aminotransferase 23 U/L (0-40); Albumin Level 4.1 g/dL (3.5-5.0); Alkaline Phosphatase 83 U/L (39-117); Anion Gap 11 (12-20); Aspartate Amino Transferase 23 U/L (5-37); Bilirubin Total 0.7 mg/dL (0.0-1.0); Blood Urea Nitrogen 12 mg/dL (9-16); Calcium 9.6 mg/dL (8.4-10.2); Carbon Dioxide 27 mmol/L (22-29); Chloride 107 mmol/L (96-108); Cholesterol 158 mg/dL (<200); Estimated Glomerular Filt Rate > 60; Glucose Fasting 90 mg/dL (60-99); HDL Cholesterol 57 mg/dL (>40); LDL Cholesterol Calculated 82 mg/dL (<100); Potassium 3.9 mmol/L (3.3-5.1); Sodium 141 mmol/L (135-145); Total Protein 8.3 g/dL (6.5-8.0); Triglycerides 99 mg/dL (<150)
[2024-02-04 09:57] LABS: Thyroid Stimulating Hormone 1.06 uIU/mL (0.32-4.0)
== END 2024-02-04 08:16 | disposition home or self-care (01) ==
LOC: HO.LAB 08:15
PROVIDERS: PCP Internal Medicine; Visit Provider Internal Medicine
DX: Z13.220 Encounter for screening for lipoid disorders (principal); Z13.29 Encounter for screening for other suspected endocrine disorder; Z13.6 Encounter for screening for cardiovascular disorders; Z13.0 Encounter for screening for diseases of the blood and blood-forming organs and certain disorders involving the immune mechanism; R53.83 Other fatigue
CPT/HCPCS: 36415; 80053; 80061; 84443; 85025; 93005

== ENCOUNTER → 2024-02-04 08:29 | Outpatient (BNV) | payer MEDICARE, BC, SELFPAY | PROVIDERS: PCP Internal Medicine; Visit Provider Internal Medicine Cardiovascular Disease | DX: I49.1 Atrial premature depolarization (principal); R53.83 Other fatigue | CPT/HCPCS: 93010 ==

== ENCOUNTER 2024-03-06 08:31 | Outpatient (REF) | payer MEDICARE, BC, SELFPAY ==
[2024-03-06 10:57] LABS: PSA,Total (Free>4and<10) 1.41 ng/mL (0.00-4.00)
== END 2024-03-06 08:32 | disposition home or self-care (01) ==
LOC: HO.LAB 08:31
PROVIDERS: PCP Internal Medicine; Visit Provider Urology
DX: Z12.5 Encounter for screening for malignant neoplasm of prostate (principal)
CPT/HCPCS: 36415; 84153

== ENCOUNTER 2024-03-16 15:42 | Outpatient (AMB) | payer MEDICARE, BC, SELFPAY ==
--- NOTE | 2024-03-16 15:45 | A.OFFVIS_ITS ---
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 H/O kidney stones. discussed PSA results-- 03/15/24-- 1.41 ng/mL. He states he has seen blood in the urine. I have discussed reevaluation of urinary tract. renal US with fu office cysto. Review of chart: 02/17/23-- Shreyas is a 73-year-old male who presents to the office who presents to the office for discussion of 24-hour urine test results. The patient is taking tamsulosin 0.4 mg daily without any reported side effects. Evaluation today-- Blood: negative, leukocytes: negative. CTAP results reviewed?01/20/23-- no renal calculi noted. Mildly enlarged prostate noted. Discussed 24 hour urine results?collected 01/21/23-- Total volume 1.61 L, Calcium 179 mg; Oxalate 29 mg, Sodium 137, Citrate 725 mg. Instructed on importance of fluid intake, Low oxalate diet, low sodium diet. Plan: Discussed to consume 2- 2.5 liters of water daily. Repeat PSA blood work. Follow-up after one year. [facility] Medical History Mitral annular calcification Nonrheumatic aortic (valve) stenosis Family history of coronary artery disease Other and unspecified hyperlipidemia Idiopathic hypotension Hypotension Hyperlipidemia Surgical History History of nasal surgery History of hernia surgery Family History Mother No problems noted. Father High cholesterol History of open heart surgery Brother History of heart artery stent Social History Housing: House Alcohol intake: current Alcohol intake frequency: a few times a week Alcohol type: wine Patient Tobacco Use Status: Never used Tobacco e-Cigarette/Vaping Use: Never Used Second Hand Smoke Exposure: No service: Yes Current occupational status: retired Cognitive needs: No Hearing needs: No Vision needs: Yes (glasses) Review of Systems Const All systems reviewed & are unremarkable except as noted in HPI and below Reports no additional complaints Eyes Reports no additional complaints ENT Reports no additional complaints Card Reports no additional complaints Resp Reports no additional complaints GI Reports no additional complaints Reports as per HPI Musc Reports no additional complaints Skin/Breast Reports system reviewed and no additional complaints, except as documented Neuro Reports no additional complaints Psych Reports no additional complaints Endo Reports no additional complaints Duc/Lymph Reports no additional complaints Aller/Immun Reports no additional complaints Results AMB Urinalysis, Automated UA Leukoctes 0 Star/uL Last Edit by Johana Goel [facility] on 03/16/24 16:17 UA Nitrite Negative Last Edit by Johana Goel [facility] on 03/16/24 16:17 UA Urobilinogen 0.2 mg/dL Last Edit by Johana Goel [facility] on 03/16/24 16:1 7 UA Protein 15 mg/dL Last Edit by Johana Goel [facility] on 03/16/24 16:17 UA pH 5.5 Last Edit by Johana Goel [facility] on 03/16/24 16:17 UA Blood 0 Kervin/uL Last Edit by Johana Goel [facility] on 03/16/24 16:17 UA Specific [place] 1.025 Last Edit by Johana Goel [facility] on 03/16/24 16: 17 UA Ketone Negative Last Edit by Johana Goel [facility] on 03/16/24 16:17 UA Bilirubin 0 mg/dL Last Edit by Johana Goel [facility] on 03/16/24 16:17 UA Glucose 0 mg/dL Last Edit by Johana Goel [facility] on 03/16/24 16:17 Results Reviewed Results Reviewed: Laboratory Last Values Urine pH (Auto) 5.5 03/16/24 16:16 Specific [place] (Auto) 1.025 03/16/24 16:16 Urine Protein (Auto) 15 mg/dL 03/16/24 16:16 Glucose (UA)(Auto) 0 mg/dL 03/16/24 16:16 Urine Ketones (Auto) Negative 03/16/24 16:16 Urine Blood (Auto) 0 Kervin/uL 03/16/24 16:16 Urine Nitrite (Auto) Negative 03/16/24 16:16 Urine Bilirubin (Auto) 0 mg/dL 03/16/24 16:16 Urine Urobilinogen (Auto) 0.2 mg/dL 03/16/24 16:16 Leukocyte Esterase (Auto) 0 Star/uL 03/16/24 16:16 Date of Service: 01/20/23 EXAMINATION: CT ABDOMEN AND PELVIS WITHOUT CONTRAST CLINICAL INFORMATION: Kidney stone COMPARISON: Previous chest CT 12/10/2022 TECHNIQUE: Multidetector volumetric imaging was performed from the superior aspect of the liver through the pubic symphysis. Sagittal and coronal reformatted images were obtained on the technologist's workstation. This CT examination was performed using dose optimization techniques as appropriate, variously including the following: *Automated exposure control *Adjustment of mA and/or kV according to patient size (this includes techniques or standardized protocols for targeted exams where dose is matched to indication/reason for exam; i.e. extremities or head) *Use of iterative reconstruction technique DLP: 336 mGy-cm FINDINGS: LUNG BASES: Small bilateral pulmonary nodules. Largest pulmonary nodule measures 6 mm in the right middle lobe axial image 7. These appear unchanged from November [address] Small bilateral posterior diaphragmatic hernias containing fat. LIVER, GALLBLADDER, AND BILIARY TREE: The liver is normal in size, shape, and attenuation. No focal hepatic lesion or biliary ductal dilatation is present. The gallbladder is unremarkable with no evidence of radiopaque gallstones, gallbladder wall thickening, or obvious pericholecystic inflammatory changes. PANCREAS: Unremarkable. SPLEEN: Unremarkable. ADRENAL GLANDS: Unremarkable. KIDNEYS AND URETERS: The kidneys are normal in size, shape, and attenuation. No hydronephrosis, hydroureter, or calculi seen. No perinephric stranding. BLADDER: Enlarged prostate gland that protrudes into the base of the bladder. Bladder is otherwise unremarkable. GASTROINTESTINAL TRACT: Diverticulosis of the colon. The small and large bowel are otherwise unremarkable. The appendix is unremarkable. ABDOMINAL WALL: No significant hernia is appreciated. LYMPH NODES: Normal. VASCULAR: Severe atherosclerotic disease. PELVIC VISCERA: The prostate gland is slightly enlarged and protrudes into the base of the bladder. Prostate gland measures 3.5 x 4.5 cm in AP and transverse dimension. OSSEOUS STRUCTURES: Degenerative changes of the spine. IMPRESSION: No stone seen. Slightly enlarged prostate gland that protrudes into the base of the bladder. Diverticulosis. Severe atherosclerotic disease. Bilateral pulmonary nodules. These are unchanged from recent chest CT November 2022. Fleischner guidelines were followed. Assessment & Plan Assessment & Plan (1) Screening PSA (prostate specific antigen): Code(s): Z12.5 - Encounter for screening for malignant neoplasm of prostate Category: Medical (2) Hematuria: Code(s): R31.9 - Hematuria, unspecified Category: Medical (3) BPH loc w urin obs/LUTS: Code(s): N40.1 - Benign prostatic hyperplasia with lower urinary tract symptoms Category: Medical (4) History of kidney stones: Code(s): Z87.442 - Personal history of urinary calculi Category: Medical Plan US renal, follow up cysto Orders: Orders AMB Urinalysis Automated 03/16/24 Z13.9 - Encounter for screening, unspecified Patient Instructions: The patient had an opportunity to ask questions regarding treatment plan. The patient expressed understanding and agreement with the above treatment plan. The patient is aware they should contact our office by phone for worsening of their current condition or the appearance of new symptoms. Compliance is encouraged with any medications and followup testing that is ordered. It is a privilege to be allowed the opportunity to participate in the urologic care of your patient. If you have any questions or concerns regarding treatment for the above conditions please do not hesitate to contact me. The office telephone contact is [phone]. This note is constructed in part using voice recognition software. While every effort has been made to ensure accuracy program paraprofessional errors may have been included. Yours sincerely, Rodrigo Bhagat MD Coding Level of Care Code Est Pt Level 4 (64983) Diagnoses Screening PSA (prostate specific antigen) Z12.5 Hematuria R31.9 BPH loc w urin obs/LUTS N40.1 History of kidney stones Z87.442
== END 2024-03-16 16:32 | disposition home or self-care (01) ==
PROVIDERS: Visit Provider Urology
DX: Z12.5 Encounter for screening for malignant neoplasm of prostate (principal); R31.9 Hematuria, unspecified; N40.1 Benign prostatic hyperplasia with lower urinary tract symptoms; Z87.442 Personal history of urinary calculi
CPT/HCPCS: 99214

== ENCOUNTER → 2024-03-16 15:42 | Outpatient (BNVA) | payer MEDICARE, BC, SELFPAY | PROVIDERS: Visit Provider Urology | DX: Z12.5 Encounter for screening for malignant neoplasm of prostate (principal); N40.1 Benign prostatic hyperplasia with lower urinary tract symptoms; R31.9 Hematuria, unspecified; Z87.442 Personal history of urinary calculi | CPT/HCPCS: 81003; 99212 ==

== ENCOUNTER 2024-04-25 09:46 | Outpatient (REF) | payer MEDICARE, BC, SELFPAY ==
--- NOTE | ~2024-04-25 | US_ITS ---
EXAMINATION: US RETROPERITONEAL LIMITED (RENAL ONLY) CLINICAL INFORMATION: Hematuria, unspecified. COMPARISON: CT abdomen and pelvis 01/20/2023. TECHNIQUE: Real-time imaging of the kidneys. Limited visualization due to bowel gas. FINDINGS: RIGHT KIDNEY: 11.7 x 5.3 x 5.0 cm (SAG x AP x TRV). No hydronephrosis. 0.4 cm mid pole calculus. Renal cortical thickness is normal. Limited visualization. LEFT KIDNEY: 12.9 x 6.5 x 4.6 cm (SAG x AP x TRV). No hydronephrosis. No renal calculi. Renal cortical thickness is normal. Limited visualization. US/US renal BI IMPRESSION: Right renal 0.4 cm nonobstructive calculus. No hydronephrosis.
== END 2024-04-25 09:47 | disposition home or self-care (01) ==
LOC: HO.US 09:46
PROVIDERS: PCP Internal Medicine; Visit Provider Urology
DX: R31.9 Hematuria, unspecified (principal); Z87.442 Personal history of urinary calculi
CPT/HCPCS: 76775

== ENCOUNTER 2024-05-17 09:17 | Outpatient (AMB) | payer MEDICARE, BC, SELFPAY ==
--- NOTE | 2024-05-17 09:42 | MHC.OFFVIS ---
Intake Visit Reasons: CYSTO/U/S Intake Note: Patient is Present for Follow Up Urology Med: Tamsulosin Antibiotic Allergy: None Blood Thinner:None PVR: 35ML Senior Grant Writer Required: No Accompanied by: Self / Same As Patient Allergies No Known Allergies Allergy (Verified 05/17/24 09:49) Medication List - Last Reconciled 05/17/24 by Rodrigo Bhagat MD albuterol sulfate 90 mcg/actuation (ProAir HFA) 2 puffs inhalation Q4-6H PRN amoxicillin-pot clavulanate 875-125 mg 1 tab PO BID 7 days atorvastatin 80 mg PO DAILY ezetimibe 10 mg PO DAILY fludrocortisone 0.1 mg PO DAILY fluticasone propionate 50 mcg/actuation 1 spray intranasal BID tamsulosin 0.4 mg PO DAILY HPI Comments Details: 05/17/2024--Shreyas is a 74-year-old male who was scheduled today for follow-up gross hematuria, renal ultrasound results and office cystoscopy. The patient had questions regarding the procedure which were answered. I have discussed the renal ultrasound 04/25/2024 notes a 4 mm nonobstructing right kidney stone. Patient had blood work 02/04/2024-renal function is within normal limits. BUN 12, creatinine 0.92. Plan to reschedule office cystoscopy. Continue tamsulosin. Review of chart: 03/16/24--Shreyas is here for annual FU. H/O kidney stones. discussed PSA results-- 03/15/24-- 1.41 ng/mL. He states he has seen blood in the urine. I have discussed reevaluation of urinary tract. renal US with fu office cysto. 02/17/23-- Shreyas is a 73-year-old male who presents to the office who presents to the office for discussion of 24-hour urine test results. The patient is taking tamsulosin 0.4 mg daily without any reported side effects. Evaluation today-- Blood: negative, leukocytes: negative. CTAP results reviewed?01/20/23-- no renal calculi noted. Mildly enlarged prostate noted. Discussed 24 hour urine results?collected 01/21/23-- Total volume 1.61 L, Calcium 179 mg; Oxalate 29 mg, Sodium 137, Citrate 725 mg. Instructed on importance of fluid intake, Low oxalate diet, low sodium diet. Plan: Discussed to consume 2-2.5 liters of water daily. Repeat PSA blood work. Follow-up after one year. [facility] Medical History Mitral annular calcification Nonrheumatic aortic (valve) stenosis Family history of coronary artery disease Other and unspecified hyperlipidemia Idiopathic hypotension Hypotension Hyperlipidemia Surgical History History of nasal surgery History of hernia surgery Family History Mother No problems noted. Father High cholesterol History of open heart surgery Brother History of heart artery stent Social History Housing: House Alcohol intake: current Alcohol intake frequency: a few times a week Alcohol type: wine Patient Tobacco Use Status: Never used Tobacco e-Cigarette/Vaping Use: Never Used Second Hand Smoke Exposure: No service: Yes Current occupational status: retired Cognitive needs: No Hearing needs: No Vision needs: Yes (glasses) Review of Systems Const All systems reviewed & are unremarkable except as noted in HPI and below Reports no additional complaints Eyes Reports no additional complaints ENT Reports no additional complaints Card Reports no additional complaints Resp Reports no additional complaints GI Reports no additional complaints Reports as per HPI Musc Reports no additional complaints Skin/Breast Reports system reviewed and no additional complaints, except as documented Neuro Reports no additional complaints Psych Reports no additional complaints Endo Reports no additional complaints Duc/Lymph Reports no additional complaints Aller/Immun Reports no additional complaints Office Procedures Post Void Residual Post Residual Void Post Void Residual (PVR): 35 [id number] Void Residual by ultrasound Results AMB Urinalysis, Automated UA Leukoctes 0 Star/uL Last Edit by HERNAN Gates on 05/17/24 10:07 UA Nitrite Negative Last Edit by HERNAN Gates on 05/17/24 10:07 UA Urobilinogen 0.2 mg/dL Last Edit by HERNAN Gates on 05/17/24 10:07 UA Protein 15 mg/dL Last Edit by HERNAN Gates on 05/17/24 10:07 UA pH 5.5 Last Edit by Judith Sebastianro, RMA on 05/17/24 10:07 UA Blood 0 Kervin/uL Last Edit by Judith Valladares, RMA on 05/17/24 10:07 UA Specific [place] 1.025 Last Edit by Judith Valladares, RMA on 05/17/24 10:07 UA Ketone Negative Last Edit by Judith Valladares, RMA on 05/17/24 10:07 UA Bilirubin 0 mg/dL Last Edit by Judith Valladares, RMA on 05/17/24 10:07 UA Glucose 0 mg/dL Last Edit by Judith Sebastianro, RMA on 05/17/24 10:07 Results Reviewed Results Reviewed: Laboratory Last Values Urine pH (Auto) 5.5 05/17/24 09:49 Specific [place] (Auto) 1.025 05/17/24 09:49 Urine Protein (Auto) 15 mg/dL 05/17/24 09:49 Glucose (UA)(Auto) 0 mg/dL 05/17/24 09:49 Urine Ketones (Auto) Negative 05/17/24 09:49 Urine Blood (Auto) 0 Kervin/uL 05/17/24 09:49 Urine Nitrite (Auto) Negative 05/17/24 09:49 Urine Bilirubin (Auto) 0 mg/dL 05/17/24 09:49 Urine Urobilinogen (Auto) 0.2 mg/dL 05/17/24 09:49 Leukocyte Esterase (Auto) 0 Star/uL 05/17/24 09:49 Date of Service: 04/25/24 EXAMINATION: US RETROPERITONEAL LIMITED (RENAL ONLY) CLINICAL INFORMATION: Hematuria, unspecified. COMPARISON: CT abdomen and pelvis 01/20/2023. TECHNIQUE: Real-time imaging of the kidneys. Limited visualization due to bowel gas. FINDINGS: RIGHT KIDNEY: 11.7 x 5.3 x 5.0 cm (SAG x AP x TRV). No hydronephrosis. 0.4 cm mid pole calculus. Renal cortical thickness is normal. Limited visualization. LEFT KIDNEY: 12.9 x 6.5 x 4.6 cm (SAG x AP x TRV). No hydronephrosis. No renal calculi. Renal cortical thickness is normal. Limited visualization. IMPRESSION: Right renal 0.4 cm nonobstructive calculus. No hydronephrosis. Date of Service: 01/20/23 EXAMINATION: CT ABDOMEN AND PELVIS WITHOUT CONTRAST CLINICAL INFORMATION: Kidney stone COMPARISON: Previous chest CT 12/10/2022 TECHNIQUE: Multidetector volumetric imaging was performed from the superior aspect of the liver through the pubic symphysis. Sagittal and coronal reformatted images were obtained on the technologist's workstation. This CT examination was performed using dose optimization techniques as appropriate, variously including the following: *Automated exposure control *Adjustment of mA and/or kV according to patient size (this includes techniques or standardized protocols for targeted exams where dose is matched to indication/reason for exam; i.e. extremities or head) *Use of iterative reconstruction technique DLP: 336 mGy-cm FINDINGS: LUNG BASES: Small bilateral pulmonary nodules. Largest pulmonary nodule measures 6 mm in the right middle lobe axial image 7. These appear unchanged from November [address] Small bilateral posterior diaphragmatic hernias containing fat. LIVER, GALLBLADDER, AND BILIARY TREE: The liver is normal in size, shape, and attenuation. No focal hepatic lesion or biliary ductal dilatation is present. The gallbladder is unremarkable with no evidence of radiopaque gallstones, gallbladder wall thickening, or obvious pericholecystic inflammatory changes. PANCREAS: Unremarkable. SPLEEN: Unremarkable. ADRENAL GLANDS: Unremarkable. KIDNEYS AND URETERS: The kidneys are normal in size, shape, and attenuation. No hydronephrosis, hydroureter, or calculi seen. No perinephric stranding. BLADDER: Enlarged prostate gland that protrudes into the base of the bladder. Bladder is otherwise unremarkable. GASTROINTESTINAL TRACT: Diverticulosis of the colon. The small and large bowel are otherwise unremarkable. The appendix is unremarkable. ABDOMINAL WALL: No significant hernia is appreciated. LYMPH NODES: Normal. VASCULAR: Severe atherosclerotic disease. PELVIC VISCERA: The prostate gland is slightly enlarged and protrudes into the base of the bladder. Prostate gland measures 3.5 x 4.5 cm in AP and transverse dimension. OSSEOUS STRUCTURES: Degenerative changes of the spine. IMPRESSION: No stone seen. Slightly enlarged prostate gland that protrudes into the base of the bladder. Diverticulosis. Severe atherosclerotic disease. Bilateral pulmonary nodules. These are unchanged from recent chest CT November 2022. Fleischner guidelines were followed. Assessment & Plan Assessment & Plan (1) Screening PSA (prostate specific antigen): Code(s): Z12.5 - Encounter for screening for malignant neoplasm of prostate Category: Medical (2) Hematuria: Code(s): R31.9 - Hematuria, unspecified Category: Medical (3) BPH loc w urin obs/LUTS: Code(s): N40.1 - Benign prostatic hyperplasia with lower urinary tract symptoms Category: Medical (4) History of kidney stones: Code(s): Z87.442 - Personal history of urinary calculi Category: Medical Plan I have discussed the renal ultrasound 04/25/2024 notes a 4 mm nonobstructing right kidney stone. Patient had blood work 02/04/2024-renal function is within normal limits. BUN 12, creatinine 0.92. Plan to reschedule office cystoscopy. Continue tamsulosin. Orders: Orders AMB Urinalysis Automated Today Z13.9 - Encounter for screening, unspecified AMB Post Void Residual by ultrasound Today N40.1 - Benign prostatic hyperplasia with lower urinary tract symptoms Patient Instructions: The patient had an opportunity to ask questions regarding treatment plan. The patient expressed understanding and agreement with the above treatment plan. The patient is aware they should contact our office by phone for worsening of their current condition or the appearance of new symptoms. Compliance is encouraged with any medications and followup testing that is ordered. It is a privilege to be allowed the opportunity to participate in the urologic care of your patient. If you have any questions or concerns regarding treatment for the above conditions please do not hesitate to contact me. The office telephone contact is [phone]. This note is constructed in part using voice recognition software. While every effort has been made to ensure accuracy academic associate errors may have been included. Yours sincerely, Rodrigo Bhagat MD Coding Level of Care Code Est Pt Level 3 (65235) Diagnoses Screening PSA (prostate specific antigen) Z12.5 Hematuria R31.9 BPH loc w urin obs/LUTS N40.1 History of kidney stones Z87.442 CPT Codes Post Residual Void - PVR CPT Code: 97250-Jwpt Void Residual by ultrasound ([id number])
== END 2024-05-17 10:18 | disposition home or self-care (01) ==
PROVIDERS: PCP Internal Medicine; Visit Provider Urology
DX: Z12.5 Encounter for screening for malignant neoplasm of prostate (principal); R31.9 Hematuria, unspecified; N40.1 Benign prostatic hyperplasia with lower urinary tract symptoms; Z87.442 Personal history of urinary calculi; Z13.9 Encounter for screening, unspecified
CPT/HCPCS: 99213

== ENCOUNTER → 2024-05-17 09:17 | Outpatient (BNVA) | payer MEDICARE, BC, SELFPAY | PROVIDERS: PCP Internal Medicine; Visit Provider Urology | DX: R31.0 Gross hematuria (principal); N40.1 Benign prostatic hyperplasia with lower urinary tract symptoms; Z87.442 Personal history of urinary calculi; Z12.5 Encounter for screening for malignant neoplasm of prostate | CPT/HCPCS: 51798; 81003; 99212 ==

== ENCOUNTER 2024-07-03 10:11 | Outpatient (AMB) | payer MEDICARE, BC, SELFPAY ==
--- NOTE | 2024-07-03 10:55 | A.OFFVIS_ITS ---
Intake Visit Reasons: cysto Intake Note: Cysto Echo Technologist Required: No Allergies No Known Allergies Allergy (Verified 07/03/24 10:56) HPI Comments Details: 07/03/24--Here for cystoscopy. Cystoscopy findings: Bladder calculus, prostatic urethra obstructive, bulbous urethra WNL, no suspicious bladder lesions visualized. Discussed cystolitholipaxy. TURP. Cystoscopy. Discussed risks to include but not limited to, blood in the urine, burning with urination, urgency. Orozco catheter. Review of chart: 05/17/2024--Shreyas is a 74-year-old male who was scheduled today for follow-up jennifer ss hematuria, renal ultrasound results and office cystoscopy. The patient had questions regarding the procedure which were answered. I have discussed the renal ultrasound 04/25/2024 notes a 4 mm nonobstructing right kidney stone. Patient had blood work 02/04/2024-renal function is within normal limits. BUN 12, creatinine 0.92. Plan to reschedule office cystoscopy. Continue tamsulosin. 03/16/24--Shreyas is here for annual FU. H/O kidney stones. discussed PSA results-- 03/15/24-- 1.41 ng/mL. He states he has seen blood in the urine. I have discussed reevaluation of urinary tract. renal US with fu office cysto. 02/17/23-- Shreyas is a 73-year-old male who presents to the office who presents to the office for discussion of 24-hour urine test results. The patient is taking tamsulosin 0.4 mg daily without any reported side effects. Evaluation today-- Blood: negative, leukocytes: negative. CTAP results reviewed?01/20/23-- no renal calculi noted. Mildly enlarged prostate noted. Discussed 24 hour urine results?collected 01/21/23-- Total volume 1.61 L, Calcium 179 mg; Oxalate 29 mg, Sodium 137, Citrate 725 mg. Instructed on importance of fluid intake, Low oxalate diet, low sodium diet. Plan: Discussed to consume 2- 2.5 liters of water daily. Repeat PSA blood work. Follow-up after one year. [facility] Medical History Mitral annular calcification Nonrheumatic aortic (valve) stenosis Family history of coronary artery disease Other and unspecified hyperlipidemia Idiopathic hypotension Hypotension Hyperlipidemia Surgical History History of nasal surgery History of hernia surgery Family History Mother No problems noted. Father High cholesterol History of open heart surgery Brother History of heart artery stent Social History Housing: House Alcohol intake: current Alcohol intake frequency: a few times a week Alcohol type: wine Patient Tobacco Use Status: Never used Tobacco e-Cigarette/Vaping Use: Never Used Second Hand Smoke Exposure: No service: Yes Current occupational status: retired Cognitive needs: No Hearing needs: No Vision needs: Yes (glasses) Review of Systems Const All systems reviewed & are unremarkable except as noted in HPI and below Reports no additional complaints Eyes Reports no additional complaints ENT Reports no additional complaints Card Reports no additional complaints Resp Reports no additional complaints GI Reports no additional complaints Reports as per HPI Musc Reports no additional complaints Skin/Breast Reports system reviewed and no additional complaints, except as documented Neuro Reports no additional complaints Psych Reports no additional complaints Endo Reports no additional complaints Duc/Lymph Reports no additional complaints Aller/Immun Reports no additional complaints Office Procedures Cystoscopy Consent Discussed risk and benefit or proposed procedure with the patient. Information consent for procedure given to the patient. Discussed technical aspects, risks, benefits and alternatives in full. Addressed all of the patient's questions and concerns regarding the procedure. The patient demonstrated knowledge and understanding. They wish to proceed with this procedure. Preparation The patient was prepped in the usual manner. A king maker was present and in the room. Genitalia was prepped with betadine solution in a sterile manner. Lidocaine Jelly 2% was placed into the urethra and 16Fr flexible Olympus cystoscope was inserted into the meatus after adequate lubrication. Procedure Time out per protocol performed. Bladder Inspection Bladder Inspection: The bladder was inspected in its entirety with utilization retroflexion displaying: Tumor(s): no suspicious bladder lesions visualized Trabeculation: Mild Mucosal Erthema: present Orifices: normal shape and position Urethra: normal Cystoscopy findings: Bladder calculus, prostatic urethra obstructive, bulbous urethra WNL, no suspicious bladder lesions visualized [id number] DISPOSABLE SCOPE URO-G FLEXIBLE SCOPE Procedure code (CPT) selection complete Office Meds lidocaine HCl 2 % mucosal jelly in applicator Performing Provider: Rodrigo Bhagat MD Performing Location: [facility] Documented (not given) by: Rodrigo Bhagat MD on 07/04/24 11:27 Dose Route Admin Location Dispensed Lot Number Expiration Date NDC Swinging Cut Off Saw Operator 10 mL intra-urethral mL nitrofurantoin monohydrate/macrocrystals 100 mg capsule Performing Provider: Rodrigo Bhagat MD Performing Location: [facility] Documented (not given) by: Rodrigo Bhagat MD on 07/04/24 11:27 Dose Route Admin Location Dispensed Lot Number Expiration Date NDC Swinging Cut Off Saw Operator 100 mg PO cap naproxen 500 mg tablet Performing Provider: Rodrigo Bhagat MD Performing Location: [facility] [facility] Documented (not given) by: Rodrigo Bhagat MD on 07/04/24 11:27 Dose Route Admin Location Dispensed Lot Number Expiration Date NDC Swinging Cut Off Saw Operator 500 mg PO tab Results AMB Urinalysis, Automated UA Leukoctes 0 Star/uL Last Edit by Laura Hook on 07/03/24 10:59 UA Nitrite Negative Last Edit by Laura Hook on 07/03/24 10:59 UA Urobilinogen 0.2 mg/dL Last Edit by Laura Hook on 07/03/24 10:59 UA Protein 15 mg/dL Last Edit by Laura Hook on 07/03/24 10:59 UA pH 6.5 Last Edit by Laura Hook on 07/03/24 10:59 UA Blood 0 Kervin/uL Last Edit by Laura Kochr on 07/03/24 10:59 UA Specific [place] 1.015 Last Edit by Laura Hook on 07/03/24 10:59 UA Ketone Negative Last Edit by Laura Hook on 07/03/24 10:59 UA Bilirubin 0 mg/dL Last Edit by Laura Hook on 07/03/24 10:59 UA Glucose 0 mg/dL Last Edit by Laura Hook on 07/03/24 10:59 Results Reviewed Results Reviewed: Laboratory Last Values Urine pH (Auto) 6.5 07/03/24 10:56 Specific [place] (Auto) 1.015 07/03/24 10:56 Urine Protein (Auto) 15 mg/dL 07/03/24 10:56 Glucose (UA)(Auto) 0 mg/dL 07/03/24 10:56 Urine Ketones (Auto) Negative 07/03/24 10:56 Urine Blood (Auto) 0 Kervin/uL 07/03/24 10:56 Urine Nitrite (Auto) Negative 07/03/24 10:56 Urine Bilirubin (Auto) 0 mg/dL 07/03/24 10:56 Urine Urobilinogen (Auto) 0.2 mg/dL 07/03/24 10:56 Leukocyte Esterase (Auto) 0 Star/uL 07/03/24 10:56 Date of Service: 04/25/24 EXAMINATION: US RETROPERITONEAL LIMITED (RENAL ONLY) CLINICAL INFORMATION: Hematuria, unspecified. COMPARISON: CT abdomen and pelvis 01/20/2023. TECHNIQUE: Real-time imaging of the kidneys. Limited visualization due to bowel gas. FINDINGS: RIGHT KIDNEY: 11.7 x 5.3 x 5.0 cm (SAG x AP x TRV). No hydronephrosis. 0.4 cm mid pole calculus. Renal cortical thickness is normal. Limited visualization. LEFT KIDNEY: 12.9 x 6.5 x 4.6 cm (SAG x AP x TRV). No hydronephrosis. No renal calculi. Renal cortical thickness is normal. Limited visualization. IMPRESSION: Right renal 0.4 cm nonobstructive calculus. No hydronephrosis. Date of Service: 01/20/23 EXAMINATION: CT ABDOMEN AND PELVIS WITHOUT CONTRAST CLINICAL INFORMATION: Kidney stone COMPARISON: Previous chest CT 12/10/2022 TECHNIQUE: Multidetector volumetric imaging was performed from the superior aspect of the liver through the pubic symphysis. Sagittal and coronal reformatted images were obtained on the technologist's workstation. This CT examination was performed using dose optimization techniques as appropriate, variously including the following: *Automated exposure control *Adjustment of mA and/or kV according to patient size (this includes techniques or standardized protocols for targeted exams where dose is matched to indication/reason for exam; i.e. extremities or head) *Use of iterative reconstruction technique DLP: 336 mGy-cm FINDINGS: LUNG BASES: Small bilateral pulmonary nodules. Largest pulmonary nodule measures 6 mm in the right middle lobe axial image 7. These appear unchanged from November [address] Small bilateral posterior diaphragmatic hernias containing fat. LIVER, GALLBLADDER, AND BILIARY TREE: The liver is normal in size, shape, and attenuation. No focal hepatic lesion or biliary ductal dilatation is present. The gallbladder is unremarkable with no evidence of radiopaque gallstones, gallbladder wall thickening, or obvious pericholecystic inflammatory changes. PANCREAS: Unremarkable. SPLEEN: Unremarkable. ADRENAL GLANDS: Unremarkable. KIDNEYS AND URETERS: The kidneys are normal in size, shape, and attenuation. No hydronephrosis, hydroureter, or calculi seen. No perinephric stranding. BLADDER: Enlarged prostate gland that protrudes into the base of the bladder. Bladder is otherwise unremarkable. GASTROINTESTINAL TRACT: Diverticulosis of the colon. The small and large bowel are otherwise unremarkable. The appendix is unremarkable. ABDOMINAL WALL: No significant hernia is appreciated. LYMPH NODES: Normal. VASCULAR: Severe atherosclerotic disease. PELVIC VISCERA: The prostate gland is slightly enlarged and protrudes into the base of the bladder. Prostate gland measures 3.5 x 4.5 cm in AP and transverse dimension. OSSEOUS STRUCTURES: Degenerative changes of the spine. IMPRESSION: No stone seen. Slightly enlarged prostate gland that protrudes into the base of the bladder. Diverticulosis. Severe atherosclerotic disease. Bilateral pulmonary nodules. These are unchanged from recent chest CT November 2022. Fleischner guidelines were followed. Assessment & Plan Assessment & Plan (1) BPH loc w urin obs/LUTS: Code(s): N40.1 - Benign prostatic hyperplasia with lower urinary tract symptoms Category: Medical (2) Hematuria: Code(s): R31.9 - Hematuria, unspecified Category: Medical (3) Nephrolithiasis: Code(s): N20.0 - Calculus of kidney Category: Medical Plan cysto TURP, cystolitholipaxy laser bladder stone Orders: Orders AMB Urinalysis Automated 07/03/24 Z13.9 - Encounter for screening, unspecified AMB Cystoscopy 07/03/24 N40.1 - Benign prostatic hyperplasia with lower urinary tract symptoms, R31.9 - Hematuria, unspecified Medications: New lidocaine HCl 2% 10 mL intra-urethral ONCE 10 mL 0RF N40.1 - Benign prostatic hyperplasia with lower urinary tract symptoms, R31.9 - Hematuria, unspecified nitrofurantoin monohyd/m-cryst 100 mg 100 mg PO ONCE 1 cap 0RF N40.1 - Benign prostatic hyperplasia with lower urinary tract symptoms, R31.9 - Hematuria, unspecified naproxen 500 mg PO ONCE 1 tab 0RF N40.1 - Benign prostatic hyperplasia with lower urinary tract symptoms, R31.9 - Hematuria, unspecified Patient Instructions: The patient had an opportunity to ask questions regarding treatment plan. The patient expressed understanding and agreement with the above treatment plan. The patient is aware they should contact our office by phone for worsening of their current condition or the appearance of new symptoms. Compliance is encouraged with any medications and followup testing that is ordered. It is a privilege to be allowed the opportunity to participate in the urologic care of your patient. If you have any questions or concerns regarding treatment for the above conditions please do not hesitate to contact me. The office telephone contact is [phone]. This note is constructed in part using voice recognition software. While every effort has been made to ensure accuracy director digital sales errors may have been included. Yours sincerely, Rodrigo Bhagat MD Coding Level of Care Code Est Pt Level 4 (82244) Diagnoses BPH loc w urin obs/LUTS N40.1 Hematuria R31.9 Nephrolithiasis N20.0 CPT Codes Cystoscopy - CPT: 44416-[id number] ([id number])
== END 2024-07-03 12:25 | disposition home or self-care (01) ==
PROVIDERS: PCP Internal Medicine; Visit Provider Urology
DX: N40.1 Benign prostatic hyperplasia with lower urinary tract symptoms (principal); R31.9 Hematuria, unspecified; N20.0 Calculus of kidney; N21.0 Calculus in bladder
CPT/HCPCS: 52000; 99214

== ENCOUNTER → 2024-07-03 10:11 | Outpatient (BNVA) | payer MEDICARE, BC, SELFPAY | PROVIDERS: PCP Internal Medicine; Visit Provider Urology | DX: N40.1 Benign prostatic hyperplasia with lower urinary tract symptoms (principal); N13.8 Other obstructive and reflux uropathy; R31.9 Hematuria, unspecified; N20.0 Calculus of kidney | CPT/HCPCS: 52000; 81003; 99212 ==

== ENCOUNTER 2024-07-17 14:14 | Outpatient (AMB) | payer MEDICARE, BC, SELFPAY ==
[2024-07-17 14:21] VITALS: BP 118/64; PULSE 67; O2SAT 97; BMI 28.7
--- NOTE | 2024-07-17 14:21 | A.OFFPC_ITS ---
Vital Signs 07/17/24 14:21 Height 5 ft 4 in Weight 167 lb BMI 28.7 BP 118/64 Blood Pressure Location Lt brachial Position Sitting Pulse 67 Pulse Source Pulse Oximeter Pulse Oximetry (%) 97 Oxygen Delivery Method Room Air Intake Visit Reasons: [facility] Gen Surgery Clearance Electrocardiogram Technician Required: No Accompanied by: Self / Same As Patient Allergies No Known Allergies Allergy (Verified 07/17/24 14:23) Medication List - Last Reconciled 07/18/24 by Guanako Akers MD albuterol sulfate 90 mcg/actuation (ProAir HFA) 2 puffs inhalation Q4-6H PRN atorvastatin 80 mg PO DAILY ezetimibe 10 mg PO DAILY fludrocortisone 0.1 mg PO DAILY fluticasone propionate 50 mcg/actuation 1 spray intranasal BID tamsulosin 0.4 mg PO DAILY Tobacco use date assessed: 10/13/23 Fall risk assessment: No Falls in past year Last assessed Fall Risk: 07/17/24 Dental Screening Dental Screen Date: 02/03/24 HPI [facility] Gen Surgery Clearance HPI Details scheduled for surgery to remove a bladder stone; has idiopathic hypotension and hyperlipidemia; aortic valve sclerosis without significant stenosis [facility] Medical History Mitral annular calcification Nonrheumatic aortic (valve) stenosis Family history of coronary artery disease Other and unspecified hyperlipidemia Idiopathic hypotension Hypotension Hyperlipidemia Surgical History History of nasal surgery History of hernia surgery Family History Mother No problems noted. Father High cholesterol History of open heart surgery Brother History of heart artery stent Social History Housing: House Alcohol intake: current Alcohol intake frequency: a few times a week Alcohol type: wine Patient Tobacco Use Status: Never used Tobacco Tobacco use type: Cigarette e-Cigarette/Vaping Use: Never Used Second Hand Smoke Exposure: No service: Yes Current occupational status: retired Cognitive needs: No Hearing needs: No Vision needs: Yes (glasses) Questionnaire Thrive Questionnaire Date Thrive assessed: 10/13/23 Are you currently unemployed and looking for a job?: No AUDIT C Alcohol Use Questionnaire (AUDIT-C) 2. How many drinks containing alcohol do you have on a typical day when you are drinking?: 1 or 2 3. How often do you have six or more drinks on one occasion?: Never Total Score: 0 LINDA-7 AMB Questionnaire LINDA-7 Date LINDA - 7 assessed: 10/13/23 Source: Developed by Drs. Jaspreet Steven, Anjana Borjas, Steve Willoughby and colleagues, with an educational suzi from [employer]. Review of Systems Const Denies chills, Denies fatigue, Denies headache(s) and Denies weight loss Eyes Denies change in vision, Denies diplopia and Denies eye pain ENT Denies vertigo, Denies dizziness, Denies headache(s) and Denies nasal discharge Card Denies chest pain, Denies rapid heart rate and Denies dyspnea on exertion Resp Denies chest congestion, Denies cough, Denies pain with cough and Denies dyspnea on exertion GI Denies abdominal pain, Denies hematochezia and Denies change in bowel habits Musc Denies myalgias, Denies arthralgias and Denies joint swelling Skin/Breast Denies lesions and Denies unusual bruising Neuro Denies vertigo, Denies dizziness, Denies headache(s) and Denies focal weakness Endo Denies fatigue Physical exam (Primary Care) Vital Signs: Last Vital Signs Pulse 67 07/17/24 14:21 BP 118/64 07/17/24 14:21 Pulse Ox 97 07/17/24 14:21 Oxygen Delivery Method Room Air 07/17/24 14:21 BMI result Body Mass Index 28.7 Tobacco/Smoking Status: Tobacco use Status Tobacco use date assessed 10/13/23 07/17/24 14:21 Patient Tobacco Use Status Never used Tobacco 07/17/24 14:21 Tobacco use type Cigarette 07/17/24 14:25 e-Cigarette/Vaping Use Never Used 07/17/24 14:21 Thrive Assessment: Date of Thrive Assessment Date Thrive assessed 10/13/23 07/17/24 14:21 Const General: cooperative, healthy appearing and no acute distress Orientation/consciousness: oriented to person, oriented to place and oriented to time HENMT Head: Yes normal to inspection, Yes normocephalic and Yes atraumatic Mouth: Normal oral and palatal mucosa present and tongue normal Throat: Yes posterior oropharynx normal and Yes uvula midline Eyes General: appearance normal, both eyes and all related structures Neck Neck: Yes normal visual inspection, Yes full ROM and Yes no lymphadenopathy Thyroid: Thyroid normal Carotids: normal carotid upstroke Chest Chest palpation & inspection: normal inspection of the chest Resp Effort & Inspection: normal respiratory effort and able to speak in complete sentences Auscultation: clear to auscultation bilaterally Cardio Jugular venous distension: no JVD Palpation: normal PMI Rate: regular rate Rhythm: regular rhythm Heart sounds: S1 normal heart sound present and S2 normal heart sound present GI Inspection: Yes normal to inspection Palpation (GI): Soft to palpation and No hepatosplenomegaly present Auscultation: normal bowel sounds General: Yes no CVA tenderness Back/Spine/Pelvis Back: no CVA tenderness Skin General skin exam: no rashes or lesions noted Neuro General: oriented to person, oriented to place and oriented to time Extrem General: Yes normal to inspection and Yes full ROM Coding Level of Care Code Est Pt Level 4 (92349) Diagnoses Preop exam for internal medicine Z01.818 Aortic valve sclerosis I35.8 Idiopathic hypotension I95.0 Hyperlipidemia E78.5 Assessment & Plan Assessment & Plan (1) Preop exam for internal medicine: Code(s): Z01.818 - Encounter for other preprocedural examination Category: Medical Plan: low risk of cardiovascular complications; cleared for surgery (2) Aortic valve sclerosis: Code(s): I35.8 - Other nonrheumatic aortic valve disorders Category: Medical Plan: stable (3) Idiopathic hypotension: Code(s): I95.0 - Idiopathic hypotension Category: Medical Plan: stable; same rx (4) Hyperlipidemia: Code(s): E78.5 - Hyperlipidemia, unspecified Category: Medical Plan: stable; same rx Orders: Orders Lipid Panel 07/17/24 Z13.220 - Encounter for screening for lipoid disorders Thyroid Stimulating Hormone 07/17/24 Z13.29 - Encounter for screening for other suspected endocrine disorder Complete Blood Count Auto Diff 07/17/24 Z13.0 - Encounter for screening for diseases of the blood and blood-forming organs and certain disorders involving the immune mechanism Comprehensive [place]. Panel Fast 07/17/24 Z13.9 - Encounter for screening, unspecified
== END 2024-07-17 14:35 | disposition home or self-care (01) ==
PROVIDERS: PCP Internal Medicine; Visit Provider Internal Medicine
DX: Z01.818 Encounter for other preprocedural examination (principal); I35.8 Other nonrheumatic aortic valve disorders; I95.0 Idiopathic hypotension; E78.5 Hyperlipidemia, unspecified

== ENCOUNTER → 2024-07-17 14:14 | Outpatient (BNVA) | payer MEDICARE, BC, SELFPAY | PROVIDERS: PCP Internal Medicine; Visit Provider Internal Medicine | DX: Z01.818 Encounter for other preprocedural examination (principal); I35.8 Other nonrheumatic aortic valve disorders; I95.0 Idiopathic hypotension; E78.5 Hyperlipidemia, unspecified | CPT/HCPCS: 99212 ==

== ENCOUNTER 2024-07-25 09:44 | Day surgery (SDC) | payer MEDICARE, BC, SELFPAY ==
--- NOTE | 2024-07-24 09:24 | P.CONAN_ITS ---
Documented by User: Mihaela Galicia NP 07/24/24 09:31 HPI - Anesthesia Eval Consult details Narrative: 74yo M for TUR Prostate, Cystoscopy/Litholpaxy Medically optimized per PCP Follows [facility] cardiology yearly. Stable at last office visit 08/2023 [facility] Active Problems Active Problems: All Active Problems Preop exam for internal medicine (Acute) History of kidney stones (Acute) BPH loc w urin obs/LUTS (Acute) Hematuria (Acute) Cough (Acute) PND (post-nasal drip) (Acute) Sinusitis (Acute) Atherosclerotic cardiovascular disease (Acute) Physical exam (Acute) Screening PSA (prostate specific antigen) (Acute) Left flank pain (Acute) Pulmonary nodule (Acute) Nephrolithiasis (Acute) Aortic valve sclerosis (Acute) Other and unspecified hyperlipidemia (Acute) Hypotension (Acute) Mitral annular calcification (Acute) Nonrheumatic aortic (valve) stenosis (Acute) Family history of coronary artery disease (Acute) Idiopathic hypotension (Acute) Hyperlipidemia (Acute) Past Medical History Medical History (Updated 07/21/24 @ 13:18 by Juana Gracia RN) Pulmonary nodule Nephrolithiasis BPH (benign prostatic hyperplasia) Mitral annular calcification Nonrheumatic aortic (valve) stenosis Family history of coronary artery disease Idiopathic hypotension Hyperlipidemia Family History Family History Mother No problems noted. Father High cholesterol History of open heart surgery Brother History of heart artery stent Surgical History Surgical History (Updated 07/21/24 @ 13:19 by Juana Gracia RN) History of nasal surgery History of hernia surgery Social History Social History Housing: House Alcohol intake: current Alcohol intake frequency: a few times a week Alcohol type: wine Patient Tobacco Use Status: Never used Tobacco Tobacco use type: Cigarette e-Cigarette/Vaping Use: Never Used Second Hand Smoke Exposure: No Use of substances other than those prescribed or required for medical reasons: No Are you DNR?: No Advance Directives: No Advance Directives Information Provided: Yes service: Yes Current occupational status: retired Cognitive needs: No Hearing needs: No Vision needs: Yes (glasses) Meds Allergies Allergy/AdvReac Type Severity Reaction Status Date / Time No Known Allergies Allergy Verified 07/25/24 09:56 Exam Pertinent Lab Results Pertinent Lab Results: Laboratory Tests 02/04/24 08:27 WBC 6.3 Hgb 13.5 L Hct 39.4 L Plt Count 181 Sodium 141 Potassium 3.9 Chloride 107 Carbon Dioxide 27 BUN 12 Creatinine 0.92 Narrative Narrative: EKG 01/2024 Vent. Rate : 066 BPM Atrial Rate : 066 BPM P-R Int : 160 ms QRS Dur : 094 ms QT Int : 398 ms P-R-T Axes : 050 053 047 degrees QTc Int : 417 ms Sinus rhythm with Premature atrial complexes Otherwise normal ECG When compared with ECG of 26-NOV-2003 11:06, Premature atrial complexes are now Present ECHO 2021 Conclusions: - The left ventricular systolic function is normal. The calculated ejection fraction is 61% by biplane method. - There is moderate calcification of the aortic valve. There is mild aortic valve stenosis. - There is mild mitral annular calcification. NM robin perf SPECT rest & str 2022 Impression: 1. Normal myocardial perfusion 2. Gated LVEF is greater than 70% 3. Transient ischemic dilatation not present Stress EKG is negative for ischemia at heart rate and workload achieved Assessment and Plan Assessment Anesthesia Assessment: Chart Reviewed Documented by User: Sergio Carpio MD 07/25/24 11:00 [facility] Past Medical History Medical History (Updated 07/21/24 @ 13:18 by Juana Gracia RN) Pulmonary nodule Nephrolithiasis BPH (benign prostatic hyperplasia) Mitral annular calcification Nonrheumatic aortic (valve) stenosis Family history of coronary artery disease Idiopathic hypotension Hyperlipidemia Family History Family History Mother No problems noted. Father High cholesterol History of open heart surgery Brother History of heart artery stent Family history of problems with anesthesia: No Surgical History Surgical History (Updated 07/21/24 @ 13:19 by Juana Gracia RN) History of nasal surgery History of hernia surgery History of Problems with Anesthesia: No Social History Social History Housing: House Alcohol intake: current Alcohol intake frequency: a few times a week Alcohol type: wine Patient Tobacco Use Status: Never used Tobacco Tobacco use type: Cigarette e-Cigarette/Vaping Use: Never Used Second Hand Smoke Exposure: No Use of substances other than those prescribed or required for medical reasons: No Are you DNR?: No Advance Directives: No Advance Directives Information Provided: Yes service: Yes Current occupational status: retired Cognitive needs: No Hearing needs: No Vision needs: Yes (glasses) Meds Allergies Allergy/AdvReac Type Severity Reaction Status Date / Time No Known Allergies Allergy Verified 07/25/24 09:56 Exam Airway Mallampati Class: II TM Dist: <=3cm Neck ROM: Full Loose/Missing/Broken Teeth: No Heart: ok. see above. Lungs: ok Assessment and Plan Assessment Anesthesia Assessment: Anesthesia Plan Discussed and Chart Reviewed Final Anesthetic Review Family History of Problems with Anesthesia: No History of Problems with Anesthesia: No NPO: Yes ASA Class: III Final Preanesthetic Review: No Changes in Pt Med Stat, Meds/Allgs Chart Reviewed, Consent Obtained/Reviewed and Anes Risks/Benef Reviewed Patient Risk: Intermediate Procedure Risk: Low Anesthetic Plan Anesthetic Plan: GA and Agree w/ Assess. and Plan Disposition: Standard PACU
[2024-07-25] VITALS (12 sets, daily range): BP systolic 120–177; BP diastolic 68–94; PULSE 64–84; RESP 16–18; TEMP 36.1–37.3; O2SAT 95–100; BMI 26.5
[2024-07-25] MEDS: Lactated Ringers 1,000 ML 100 ML IVCONT ×2 (10:22→14:38)
--- NOTE | 2024-07-25 10:32 | MHC.SHP ---
Pre-Procedural Eval Section A - 24 Hr Update-Section A only Date of Service: 07/25/24 The patient is an INPATIENT: No Section B - Complete if H&P > 30 days Chief Complaint: Benign prostatic hyperplasia,Calculus in bladder Allergies: Allergies Allergy/AdvReac Type Severity Reaction Status Date / Time No Known Allergies Allergy Verified 07/25/24 09:56 Plan Diagnosis/Plan: Unchanged I have reviewed the history and physical and performed a pertinent physical examination on my patient. No changes have occurred unless specified. Cystoscopy, cystolitholipaxy, laser bladder stone, transurethral resection, prostate. Time Spent With Patient Time: Total time managing care of this patient today ____ minutes.
--- NOTE | 2024-07-25 12:01 | W.PM.OPN ---
Operative Note Operative Note Date of Service: 07/25/24 Narrative: PREOP DIAGNOSIS: Bladder outlet obstruction, enlarged prostate, bladder calculus POSTOP DIAGNOSIS: Bladder outlet obstruction, enlarged prostate, bladder calculus PROCEDURE: Cystoscopy, cystolitholipaxy bladder stone, transurethral resection of Prostate Anesthesia: General Details of procedure: The patient was brought into the operating room placed on the OR table in supine position. Gentamycin 160 mg, 2 g of Ancef IV. General anesthesia was administered. The patient was repositioned into lithotomy position, prepped and draped in the usual sterile fashion. Time-out was done per protocol. The 22 [place] cystoscope was passed transurethrally into the bladder the bulbous urethra was within normal limits the median lobe of the prostate was obstructive. A bladder stone was visualized the right and left ureteral orifices were along the trigone and normal position. The cystoscope was removed. The 24 [place] resectoscope was passed transurethrally into the bladder. The rigid stone lockstitcher attachment was used and the bladder stone was crushed. The Ellik was used to irrigate out the stone fragments. Next attention was taken to the prostatic urethra. The needle attachment for the resectoscope was used and an incision was made at the 5 o'clock position from the bladder neck to just before the Veru. The loop attachment was used to resect the prostate tissue from the left lateral lobe and the median lobe. Care was taken in resection of the median lobe. Care was taken to preserve the Veru, the Ellik was used to irrigate out the prostatic chips. Once there was good hemostasis achieved, the resectoscope was removed. A [address] [place] catheter 30 cc balloon was passed without difficulty. 40 mL H20 injected into the balloon, ledesma placed on tension. CBI with Normal Saline was started in OR. The patient was brought out of anesthesia and taken to recovery in stable condition. EBL: <50 mL Complications: None Drains: [address] [place] catheter 30 cc balloon
[2024-07-25] MEDS: Opium/Belladonna 60/16.2 mg SUPP.RECT 1 SUPP PR (12:56)
--- NOTE | 2024-07-25 13:40 | PHA.MEDREC ---
Pharmacy Consult ? Medication Reconciliation Pharmacy has reviewed the medication reconciliation.
[2024-07-25] MEDS: 0.9 % Sodium Chloride Flush 3 ML SYRINGE IVFLUSH ×2 (15:35→20:01)
[2024-07-25] MEDS: Docusate Sodium 100 MG CAPSULE PO ×2 (15:35→20:00)
[2024-07-26] MEDS: Lactated Ringers 1,000 ML 100 ML IVCONT (00:47)
[2024-07-26 02:41] VITALS: BP 153/74; PULSE 63; RESP 16; TEMP 36.4; O2SAT 98
[2024-07-26 07:40] VITALS: BP 151/84; PULSE 72; RESP 16; TEMP 36.7; O2SAT 98
[2024-07-26] MEDS: Docusate Sodium 100 MG CAPSULE PO (07:53)
--- NOTE | 2024-07-26 08:46 | HO.POSTANES ---
Post Anesthesia Evaluation Post Anesthesia Evaluation Date of Service: 07/25/24 Vital Signs: Vital Signs Temp Pulse Resp BP Pulse Ox O2 Del Method 07/26/24 07:40 98.1 F 72 16 151/84 H 98 Room Air 07/26/24 02:41 97.5 F 63 16 153/74 H 98 Room Air 07/25/24 23:50 99.1 F 84 18 141/75 H 95 Room Air Anesthesia: General Mental Status: Awake Pain Control: Satisfactory Nausea/Vomiting: None Hydration: Adequate Anesthesia-Related Issues: No Anes. Related Issues
--- NOTE | 2024-07-26 09:08 | PC.NURSE ---
CBI clamped at [address] Bhagat. Urine clear to light pink without clots or stranding observed.
--- NOTE | 2024-07-26 09:26 | MHC.CM.PN ---
Addendum entered by Fabienne Hollis RN 07/26/24 11:10: Patient dc'd home self care. Original Note: Patient lives in a home w/ , [employer]. Functionally independent. Denies use of DME or services. PCP Guanako Akers MD No HCP. CM provided education and offered assistance. Patient declined, would like to speak to first. DP: Goal is home self care. will transport. CM will continue to follow.
[2024-07-26 10:59] VITALS: BP 116/58; PULSE 82; RESP 16; TEMP 36.9; O2SAT 98
== END 2024-07-26 13:15 | disposition home or self-care (01) ==
LOC: HO.SSS 09:45 → HO.S3 13:54
PROVIDERS: PCP Internal Medicine; Visit Provider Urology
PROC: 0VT08ZZ Resection of Prostate, Via Natural or Artificial Opening Endoscopic (ICD-10-PCS; CPT 52601; principal; 2024-07-25 10:40)
PROC: (CPT 52601; 2024-07-25 10:40)
DX: N40.1 Benign prostatic hyperplasia with lower urinary tract symptoms (principal); N13.8 Other obstructive and reflux uropathy; N21.0 Calculus in bladder
CPT/HCPCS: 52601; 52317; 88300; 88305; C1758; J0690; J1580; J2003; J2704; J3010; J7120

== ENCOUNTER → 2024-07-25 09:44 | Outpatient (BNV) | payer MEDICARE, BC, SELFPAY | PROVIDERS: PCP Internal Medicine; Visit Provider Urology | DX: N40.1 Benign prostatic hyperplasia with lower urinary tract symptoms (principal); N32.0 Bladder-neck obstruction; N21.0 Calculus in bladder | CPT/HCPCS: 52317; 52601 ==

== ENCOUNTER 2024-08-07 14:27 | Outpatient (AMB) | payer MEDICARE, BC, SELFPAY ==
--- NOTE | 2024-08-07 13:09 | A.OFFVIS_ITS ---
Intake Visit Reasons: PO- TURP, Cystolitholipaxy- follow up Intake Note: Patient is present for PO-TURP, CYSTOLITHOLIPAXY F/U Urology Medication:FINASTERIDE,TAMSULOSIN Antibiotic Allergy:NONE Blood Thinner:NONE Automotive General Manager Required: No Allergies No Known Allergies Allergy (Verified 08/07/24 14:25) Medication List - Last Reconciled 08/07/24 by Rodrigo Bhagat MD albuterol sulfate 90 mcg/actuation 2 puffs inhalation Q4-6H PRN atorvastatin 80 mg PO DAILY ezetimibe 10 mg PO DAILY finasteride (Proscar) 5 mg PO DAILY fludrocortisone 0.1 mg PO DAILY fluticasone propionate 50 mcg/actuation 1 spray intranasal BID phenazopyridine (Azo Urinary Pain Relief) 199 mg (2 x 99.5 mg) PO TID PRN solifenacin (Vesicare) 5 mg PO BEDTIME sulfamethoxazole-trimethoprim 800-160 mg (Bactrim DS) 1 tab PO BID tamsulosin 0.4 mg PO DAILY HPI Comments Details: 08/07/24--s/p 07/25/24-Cystoscopy, cystolitholipaxy bladder stone, transurethral resection of Prostate. Discussed pathology benign prostate tissue with chronic inflammation. The patient states that he is at urinary urgency especially at nighttime and occasional burning with urination. He also still has intermittent blood in the urine. I will empirically place him on Bactrim DS 1 tab twice a day for 5 days and VESIcare at bedtime. He will continue the tamsulosin and finasteride during the daytime. Follow-up in 1 month to re-evaluate urinary symptoms. Review of chart: 07/03/24--Here for cystoscopy. Cystoscopy findings: Bladder calculus, prostatic urethra obstructive, bulbous urethra WNL, no suspicious bladder lesions visualized. Discussed cystolitholipaxy. TURP. Cystoscopy. Discussed risks to include but not limited to, blood in the urine, burning with urination, urgency. Orozco catheter. 05/17/2024--Shreyas is a 74-year-old male who was scheduled today for follow-up gross hematuria, renal ultrasound results and office cystoscopy. The patient had questions regarding the procedure which were answered. I have discussed the renal ultrasound 04/25/2024 notes a 4 mm nonobstructing right kidney stone. Patient had blood work 02/04/2024-renal function is within normal limits. BUN 12, creatinine 0.92. Plan to reschedule office cystoscopy. Continue tamsulosin. 03/16/24--Shreyas is here for annual FU. H/O kidney stones. discussed PSA results-- 03/15/24-- 1.41 ng/mL. He states he has seen blood in the urine. I have discussed reevaluation of urinary tract. renal US with fu office cysto. 02/17/23-- Shreyas is a 73-year-old male who presents to the office who presents to the office for discussion of 24-hour urine test results. The patient is taking tamsulosin 0.4 mg daily without any reported side effects. Evaluation today-- Blood: negative, leukocytes: negative. CTAP results reviewed?01/20/23-- no renal calculi noted. Mildly enlarged prostate noted. Discussed 24 hour urine results?collected 01/21/23-- Total volume 1.61 L, Calcium 179 mg; Oxalate 29 mg, Sodium 137, Citrate 725 mg. Instructed on importance of fluid intake, Low oxalate diet, low sodium diet. Plan: Discussed to consume 2- 2.5 liters of water daily. Repeat PSA blood work. Follow-up after one year. [facility] Medical History Pulmonary nodule Nephrolithiasis BPH (benign prostatic hyperplasia) Mitral annular calcification Nonrheumatic aortic (valve) stenosis Family history of coronary artery disease Idiopathic hypotension Hyperlipidemia Surgical History History of nasal surgery History of hernia surgery Family History Mother No problems noted. Father High cholesterol History of open heart surgery Brother History of heart artery stent Social History Household Members: Spouse Housing: House Do you presently have visiting nurse or other home services: No Alcohol intake: current Alcohol intake frequency: a few times a week Alcohol type: wine Patient Tobacco Use Status: Never used Tobacco Tobacco use type: Cigarette e-Cigarette/Vaping Use: Never Used Second Hand Smoke Exposure: No service: No Current occupational status: retired Cognitive needs: No Hearing needs: No Vision needs: Yes (glasses) Review of Systems Const All systems reviewed & are unremarkable except as noted in HPI and below Reports no additional complaints Eyes Reports no additional complaints ENT Reports no additional complaints Card Reports no additional complaints Resp Reports no additional complaints GI Reports no additional complaints Reports as per HPI Musc Reports no additional complaints Skin/Breast Reports system reviewed and no additional complaints, except as documented Neuro Reports no additional complaints Psych Reports no additional complaints Endo Reports no additional complaints Duc/Lymph Reports no additional complaints Aller/Immun Reports no additional complaints Telehealth Telehealth Telehealth Platform: Lavante Location of provider rendering services: practice address Location of patient: address on file Patient Identification confirmed using: Name, : Yes Telehealth method: voice only Patient verbally consented to treatment: Yes Patient verbally consented to billing insurance company: Yes Patient informed of any privacy concerns related to visit: Yes Minutes spent on Phone/Video with Pt.: 15 Results Reviewed Results Reviewed: Collected: 07/25/24 Location: [facility] Received: 07/25/24 Diagnosis A. Bladder stone: Calculous material. Gross examination only. B. 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 Clinical History Benign prostatic hyperplasia, calculus in bladder Material Received Bladder stone Gross Description Received in two parts. Part A: Received fresh labeled ?bladder stone? are several minute to 0.8 cm in greatest dimension rodriguez and gallagher-rodriguez calculi aggregating 1.4 x 1.2 x 0.1-0.4 cm. The specimen is retained fresh. Gross description only. Part B: Received in formalin labeled ?prostate? are multiple rubbery, cauterized, gallagher-rodriguez and rodriguez-pink fragments and chips of fibromuscular tissue with scant red-maroon blood ranging from 0.3-0.8 cm in greatest dimension and aggregating 2.5 x 2.0 x 0.4 cm, submitted in toto in a cassette labeled B. SERAFINS This case was reviewed intradepartmentally (B). Date of Service: 04/25/24 EXAMINATION: US RETROPERITONEAL LIMITED (RENAL ONLY) CLINICAL INFORMATION: Hematuria, unspecified. COMPARISON: CT abdomen and pelvis 01/20/2023. TECHNIQUE: Real-time imaging of the kidneys. Limited visualization due to bowel gas. FINDINGS: RIGHT KIDNEY: 11.7 x 5.3 x 5.0 cm (SAG x AP x TRV). No hydronephrosis. 0.4 cm mid pole calculus. Renal cortical thickness is normal. Limited visualization. LEFT KIDNEY: 12.9 x 6.5 x 4.6 cm (SAG x AP x TRV). No hydronephrosis. No renal calculi. Renal cortical thickness is normal. Limited visualization. IMPRESSION: Right renal 0.4 cm nonobstructive calculus. No hydronephrosis. Date of Service: 01/20/23 EXAMINATION: CT ABDOMEN AND PELVIS WITHOUT CONTRAST CLINICAL INFORMATION: Kidney stone COMPARISON: Previous chest CT 12/10/2022 TECHNIQUE: Multidetector volumetric imaging was performed from the superior aspect of the liver through the pubic symphysis. Sagittal and coronal reformatted images were obtained on the technologist's workstation. This CT examination was performed using dose optimization techniques as appropriate, variously including the following: *Automated exposure control *Adjustment of mA and/or kV according to patient size (this includes techniques or standardized protocols for targeted exams where dose is matched to indication/reason for exam; i.e. extremities or head) *Use of iterative reconstruction technique DLP: 336 mGy-cm FINDINGS: LUNG BASES: Small bilateral pulmonary nodules. Largest pulmonary nodule measures 6 mm in the right middle lobe axial image 7. These appear unchanged from November [address] Small bilateral posterior diaphragmatic hernias containing fat. LIVER, GALLBLADDER, AND BILIARY TREE: The liver is normal in size, shape, and attenuation. No focal hepatic lesion or biliary ductal dilatation is present. The gallbladder is unremarkable with no evidence of radiopaque gallstones, gallbladder wall thickening, or obvious pericholecystic inflammatory changes. PANCREAS: Unremarkable. SPLEEN: Unremarkable. ADRENAL GLANDS: Unremarkable. KIDNEYS AND URETERS: The kidneys are normal in size, shape, and attenuation. No hydronephrosis, hydroureter, or calculi seen. No perinephric stranding. BLADDER: Enlarged prostate gland that protrudes into the base of the bladder. Bladder is otherwise unremarkable. GASTROINTESTINAL TRACT: Diverticulosis of the colon. The small and large bowel are otherwise unremarkable. The appendix is unremarkable. ABDOMINAL WALL: No significant hernia is appreciated. LYMPH NODES: Normal. VASCULAR: Severe atherosclerotic disease. PELVIC VISCERA: The prostate gland is slightly enlarged and protrudes into the base of the bladder. Prostate gland measures 3.5 x 4.5 cm in AP and transverse dimension. OSSEOUS STRUCTURES: Degenerative changes of the spine. IMPRESSION: No stone seen. Slightly enlarged prostate gland that protrudes into the base of the bladder. Diverticulosis. Severe atherosclerotic disease. Bilateral pulmonary nodules. These are unchanged from recent chest CT November 2022. Fleischner guidelines were followed. Assessment & Plan Assessment & Plan (1) BPH loc w urin obs/LUTS: Code(s): N40.1 - Benign prostatic hyperplasia with lower urinary tract symptoms Category: Medical (2) Hematuria: Code(s): R31.9 - Hematuria, unspecified Category: Medical (3) Nephrolithiasis: Code(s): N20.0 - Calculus of kidney Category: Medical Plan s/p cysto TURP, cystolitholipaxy laser bladder stone. he patient states that he is at urinary urgency especially at nighttime and occasional burning with urination. He also still has intermittent blood in the urine. I will empirically place him on Bactrim DS 1 tab twice a day for 5 days and VESIcare at bedtime. He will continue the tamsulosin and finasteride during the daytime. Follow-up in 1 month to re-evaluate urinary symptoms. Medications: New sulfamethoxazole-trimethoprim 800-160 mg (Bactrim DS) 1 tab PO BID 10 tabs 0RF solifenacin (Vesicare) 5 mg PO BEDTIME 30 tabs 0RF Patient Instructions: The patient had an opportunity to ask questions regarding treatment plan. The patient expressed understanding and agreement with the above treatment plan. The patient is aware they should contact our office by phone for worsening of their current condition or the appearance of new symptoms. Compliance is encouraged with any medications and followup testing that is ordered. It is a privilege to be allowed the opportunity to participate in the urologic care of your patient. If you have any questions or concerns regarding treatment for the above conditions please do not hesitate to contact me. The office telephone contact is [phone]. This note is constructed in part using voice recognition software. While every effort has been made to ensure accuracy retail office associate errors may have been included. Yours sincerely, Rodrigo Bhagat MD Coding Level of Care Code Global (28751) Diagnoses BPH loc w urin obs/LUTS N40.1 Hematuria R31.9 Nephrolithiasis N20.0
== END 2024-08-07 15:23 | disposition home or self-care (01) ==
LOC: HO.HUSH 14:27
PROVIDERS: PCP Internal Medicine; Visit Provider Urology
DX: N40.1 Benign prostatic hyperplasia with lower urinary tract symptoms (principal); R31.9 Hematuria, unspecified; N20.0 Calculus of kidney
CPT/HCPCS: 99024

== ENCOUNTER → 2024-08-07 14:27 | Outpatient (BNVA) | payer MEDICARE, BC, SELFPAY | PROVIDERS: PCP Internal Medicine; Visit Provider Urology | DX: N40.1 Benign prostatic hyperplasia with lower urinary tract symptoms (principal); N13.8 Other obstructive and reflux uropathy; R31.9 Hematuria, unspecified; N20.0 Calculus of kidney | CPT/HCPCS: 99212 ==

== ENCOUNTER 2024-08-21 09:33 | Outpatient (REF) | payer MEDICARE, BC, SELFPAY ==
[2024-08-21 09:58] LABS: MANUAL DIFF FLAG NO
[2024-08-21 10:39] LABS: Basophils Absolute Auto 0.1 X10*3/uL (0.0-0.2); Basophils Percent Auto 1.2 % (0-2); Eosinophils Absolute Auto 0.1 X10*3/uL (0.0-0.4); Hematocrit 35.3 % (42.0-52.0); Hemoglobin 12.4 g/dl (14.0-18.0); Imm Gran Abs Auto 0.02 X10*3/uL (0.00-0.03); Imm Gran Pct Auto 0.3 % (0.0-0.4); Lymphocytes Absolute Auto 1.7 X10*3/uL (1.2-4.9); Lymphocytes Percent Auto 26.1 % (20-40); Mean Corpuscular HGB Conc 35.1 g/dl (31.0-36.0); Mean Corpuscular Hemoglobin 30.3 pg (27.0-33.0); Mean Corpuscular Volume 86.3 fL (80.0-98.0); Mean Platelet Volume 11.4 fL (9.4-12.4); Monocytes Absolute Auto 0.5 X10*3/uL (0.1-1.2); Neutrophils Absolute Auto 4.2 x10*3/uL (2.0-8.3); Neutrophils Percent Auto 63.4 % (45-73); Platelet Count 187 X10*3/uL (160-400); Red Blood Count 4.09 X10*6/uL (4.60-5.80); Red Cell Distribution Width 13.4 % (11.0-16.0); White Blood Count 6.6 X10*3/uL (4.8-10.8)
[2024-08-21 11:20] LABS: Alanine Aminotransferase 22 U/L (0-40); Albumin Level 3.9 g/dL (3.5-5.0); Alkaline Phosphatase 93 U/L (39-117); Anion Gap 7 (12-20); Aspartate Amino Transferase 26 U/L (5-37); Bilirubin Total 0.4 mg/dL (0.0-1.0); Blood Urea Nitrogen 13 mg/dL (9-16); Calcium 9.4 mg/dL (8.4-10.2); Carbon Dioxide 30 mmol/L (22-29); Chloride 107 mmol/L (96-108); Cholesterol 140 mg/dL (<200); Estimated Glomerular Filt Rate > 60; Glucose Fasting 96 mg/dL (60-99); HDL Cholesterol 52 mg/dL (>40); LDL Cholesterol Calculated 72 mg/dL (<100); Potassium 3.8 mmol/L (3.3-5.1); Sodium 140 mmol/L (135-145); Total Protein 7.4 g/dL (6.5-8.0); Triglycerides 83 mg/dL (<150)
[2024-08-21 11:26] LABS: Thyroid Stimulating Hormone 1.25 uIU/mL (0.32-4.0)
== END 2024-08-21 09:34 | disposition home or self-care (01) ==
LOC: HO.LAB 09:33
PROVIDERS: PCP Internal Medicine; Visit Provider Internal Medicine
DX: Z13.0 Encounter for screening for diseases of the blood and blood-forming organs and certain disorders involving the immune mechanism (principal); Z13.29 Encounter for screening for other suspected endocrine disorder; Z13.220 Encounter for screening for lipoid disorders; Z13.9 Encounter for screening, unspecified
CPT/HCPCS: 36415; 80053; 80061; 84443; 85025

== ENCOUNTER → 2024-08-22 12:34 | Outpatient (REF) | payer MEDICARE, BC, SELFPAY ==
--- NOTE | 2024-08-22 12:37 | CA_ITS ---
Transthoracic Echocardiogram Patient (Last, First, Middle): Shreyas Byrnes A Gender: Male Date of : 1950 Age: 74 Procedure Date: 08/22/2024 Procedure Type: Transthoracic Echocardiogram Location: OP Height: 167. cm Weight: 74.84 kg BSA: 1.84 m2 Heart Rate: 63 bpm BP: 110 / 70 mmHg Coding Team Lead: CASSY Referring MD: Wali Madrigal MD Symptoms: I35.0 - Nonrheumatic aortic (valve) stenosis Study Quality: Adequate ECG Rhythm: Sinus Conclusions: - The left ventricular systolic function is normal. The calculated ejection fraction is 66% by biplane method. - There is severe calcification of the aortic valve. There is mild aortic valve stenosis. Findings Left Ventricle Normal left ventricular cavity size. There is mildly increased left ventricular wall thickness. The left ventricular systolic function is normal. The calculated ejection fraction is 66% by biplane method. There is no evidence of regional wall motion abnormalities. Evidence suggests grade I (mild) diastolic dysfunction. Right Ventricle Mildly increased right ventricular cavity size. There is normal right ventricular systolic function. Atria Both atria are normal in size. Aortic Valve There is severe calcification of the aortic valve. There is mild aortic valve stenosis. Trace to mild aortic regurgitation. Mitral Valve There is moderate mitral annular calcification. There is trace mitral valve regurgitation. There is no mitral valve stenosis. Pulmonic Valve The pulmonic valve is likely normal. Tricuspid Valve There is mild tricuspid valve regurgitation. There is no evidence of pulmonary hypertension. Great Vessels The asc aorta and aortic arch are normal in size. Venous The inferior vena cava was not well visualized. The inferior vena cava is normal in size. Pericardium/Pleural There is no evidence of pericardial effusion. Prior Study Comparison No significant change compared to prior study dated: 06/22/2022. Measurements 2D Linear Measurements IVSd: 1.06 0.6-0.9/0.6-1.0 cm LVIDd: 3.19 3.9-5.3/4.2-5.9 cm LVIDd Index: 1.73 2.4-3.2/2.2-3.1 cm/m2 LVIDs: 2.02 2.0-3.6 cm LVPWd: 1.27 0.7-1.1 cm LA Diam: 3.20 2.7-3.8/3.0-4.0 cm LAIDs Index: 1.74 1.5-2.3 cm/m2 LV Mass: 141.16 67-162/88-224 g LV Mass Index: 76.72 43-95/49-115 g/m2 LVOT Diam: 2.30 3.0+(-)1.3 cm 2D Systolic Function EF 4C: 62.50 >55% EF 2C: 66.30 >55% EF BiP: 66.40 >55% Mitral Valve MV Pk E: 0.88 MV PK A: 0.93 MV Decel Time: 302.00 E/A: 0.90 E'Lateral: 6.09 E'Medial: 5.00 E/E' Med: 17.60 E/E' Lat: 14.40 PHT: 88.00 MVA PHT: 2.50 Decel Craven: 2.91 Aortic Valve AoV Pk Neri: 2.94 AoV Mn Neri: 2.17 AoV VTI: 0.72 AoV Pk Grad: 35.00 Aov Mn Grad: 21.00 FRAN Cont.VTI: 1.75 AI Pk Neri: 4.01 AI Craven: 1.44 LVOT LVOT Pk Neri: 1.31 LVOT Mn Neri: 0.90 LVOT VTI: 0.30 LVOT Pk Grad: 7.00 LVOT Mn Grad: 4.00 LVOT Diam: 2.30 LVOT Area: 4.15 Diastolic Function MV Pk E: 0.88 MV Pk A: 0.93 E/A: 0.90 E'Medial: 5.00 E/E' Med: 17.60 E' Laterial: 6.09 E/E' Lat: 14.40 Right Ventricle TAPSE (mm): 20.30 TVS' Neri: 11.90 Tricuspid Valve TR Pk Neri: 2.12 TR Pk Grad: 18.00 Great Vessels Aorta Sinus of Valsalva: 3.80 2.0-3.5 cm Ao Asc: 3.60 2.1-3.4 cm Ao Arch: 3.00 Pulmonary Valve PV Pk Neri: 0.71 Peak PV Grad: 2.00 Updated in Other Vendor System with Status of Final Wali Madrigal MD electronically signed on 08/24/2024 1:14:25 PM with status of Final
== END ==
LOC: HO.CARD 12:34
PROVIDERS: PCP Internal Medicine; Visit Provider Internal Medicine
DX: I35.0 Nonrheumatic aortic (valve) stenosis (principal)
CPT/HCPCS: 93306

== ENCOUNTER → 2024-08-22 12:37 | Outpatient (BNV) | payer MEDICARE, BC, SELFPAY | PROVIDERS: PCP Internal Medicine; Visit Provider Internal Medicine | DX: I35.2 Nonrheumatic aortic (valve) stenosis with insufficiency (principal); I35.8 Other nonrheumatic aortic valve disorders; I36.1 Nonrheumatic tricuspid (valve) insufficiency | CPT/HCPCS: 93306 ==

== ENCOUNTER 2024-09-07 09:40 | Outpatient (AMB) | payer MEDICARE, BC, SELFPAY ==
[2024-09-07 09:44] VITALS: BP 136/78; PULSE 79; O2SAT 98; BMI 29.5
--- NOTE | 2024-09-07 09:44 | A.OFFPC_ITS ---
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 Accompanied by: Self / Same As Patient Allergies No Known Allergies Allergy (Verified 09/07/24 09:45) Medication List - Last Reconciled 09/07/24 by Guanako Akers MD albuterol sulfate 90 mcg/actuation 2 puffs inhalation Q4-6H PRN atorvastatin 80 mg PO DAILY ezetimibe 10 mg PO DAILY finasteride (Proscar) 5 mg PO DAILY fludrocortisone 0.1 mg PO DAILY fluticasone propionate 50 mcg/actuation 1 spray intranasal BID solifenacin (Vesicare) 5 mg PO BEDTIME tamsulosin 0.4 mg PO DAILY Tobacco use date assessed: 10/13/23 Fall risk assessment: No Falls in past year Last assessed Fall Risk: 09/07/24 Dental Screening Dental Screen Date: 02/03/24 HPI ANNUAL HPI Details hyperlipidemia, hypotension, and aortic stenosis; recently had a TURP [facility] Medical History Pulmonary nodule Nephrolithiasis BPH (benign prostatic hyperplasia) Mitral annular calcification Nonrheumatic aortic (valve) stenosis Family history of coronary artery disease Idiopathic hypotension Hyperlipidemia Surgical History History of nasal surgery History of hernia surgery Family History Mother No problems noted. Father High cholesterol History of open heart surgery Brother History of heart artery stent Social History Household Members: Spouse Housing: House Do you presently have visiting nurse or other home services: No Alcohol intake: current Alcohol intake frequency: a few times a week Alcohol type: wine Patient Tobacco Use Status: Never used Tobacco Tobacco use type: Cigarette e-Cigarette/Vaping Use: Never Used Second Hand Smoke Exposure: No service: No Current occupational status: retired Cognitive needs: No Hearing needs: No Vision needs: Yes (glasses) Questionnaire PHQ-9 Over the last 2 weeks, how often have you been bothered by any of the following problems? 1. Little interest or pleasure in doing things: not at all 2. Feeling down, depressed, or hopeless: not at all 3. Trouble falling or staying asleep, or sleeping too much: not at all 4. Feeling tired or having little energy: not at all 5. Poor appetite or overeating: not at all 6. Feeling bad about yourself - or that you are a failure or have let yourself or your family down: not at all 7. Trouble concentrating on things, such as reading the newspaper or watching television: not at all 8. Moving or speaking so slowly that other people could have noticed. Or the opposite - being so fidgety or restless that you have been moving around a lot more than usual: not at all 9. Thoughts that you would be better off or of hurting yourself in some way: not at all Total score: 0 Source: Developed by Drs. Jaspreet Steven, Anjana Borjas, Steve Willoughby and colleagues, with an educational suzi from [employer]. Thrive Questionnaire Date Thrive assessed: 09/05/24 I am a: Patient What is your living situation today?: I have a steady place to live Within the past 12 months, did the food you bought not last and you didn't have the money to get more?: Never true Within the past 12 months, did you worry whether your food would run out before you got money to buy more?: Never true Do you have trouble paying for medicines?: No Do you have trouble getting transportation to medical appointments?: No Do you have trouble paying your heating and electricity bill?: No Do you have trouble taking care of your child, family member or friend?: No Do you have trouble with day-to-day activities such as bathing, preparing meals, shopping, managing finances, etc.?: No Are you currently unemployed and looking for a job?: No Are you interested in more education?: No Please select the resources that you would like help with: None Currently or been in a relationship where the following occur: No concerns reported THRIVE Score: 0 AUDIT C Alcohol Use Questionnaire (AUDIT-C) 1. How often do you have a drink containing alcohol?: 2-4 times a month Total Score: 2 LINDA-7 AMB Questionnaire LINDA-7 Date LINDA - 7 assessed: 10/13/23 Feeling nervous, anxious, or on edge: 0 = Not at all Not being able to stop or control worryin = Not at all Worrying too much about different things: 0 = Not at all Trouble relaxin = Not at all Being so restless that it is hard to sit still: 0 = Not at all Becoming easily annoyed or irritable: 0 = Not at all Feeling afraid as if something awful might happen: 0 = Not at all Total LINDA-7 score (0-4 normal; 5-9 mild; 10-14 moderate; 15-21 severe): 0 Source: Developed by Drs. Jaspreet Steven, Anjana Borjas, Steve Willoughby and colleagues, with an educational suzi from [employer]. Review of Systems Const Denies chills, Denies fatigue, Denies headache(s) and Denies weight loss Eyes Denies change in vision, Denies diplopia and Denies eye pain ENT Denies vertigo, Denies dizziness, Denies headache(s) and Denies nasal discharge Card Denies chest pain, Denies rapid heart rate and Denies dyspnea on exertion Resp Denies chest congestion, Denies cough, Denies pain with cough and Denies dyspnea on exertion GI Denies abdominal pain, Denies hematochezia and Denies change in bowel habits Musc Denies myalgias, Denies arthralgias and Denies joint swelling Skin/Breast Denies lesions and Denies unusual bruising Neuro Denies vertigo, Denies dizziness, Denies headache(s) and Denies focal weakness Endo Denies fatigue Physical exam (Primary Care) Vital Signs: Last Vital Signs Pulse 79 09/07/24 09:44 BP 136/78 09/07/24 09:44 Pulse Ox 98 09/07/24 09:44 Oxygen Delivery Method Room Air 09/07/24 09:44 BMI result Body Mass Index 29.5 Tobacco/Smoking Status: Tobacco use Status Tobacco use date assessed 10/13/23 09/07/24 09:49 Patient Tobacco Use Status Never used Tobacco 09/07/24 09:49 Tobacco use type Cigarette 09/07/24 09:49 e-Cigarette/Vaping Use Never Used 09/07/24 09:49 PHQ-9: PHQ-9 Score PHQ-9: Total score 0 09/07/24 09:49 Thrive Assessment: Date of Thrive Assessment Date Thrive assessed 09/05/24 09/07/24 09:49 Currently or been in a relationship where the following occur: No concerns reported Const General: cooperative, healthy appearing and no acute distress Orientation/consciousness: oriented to person, oriented to place and oriented to time HENMT Head: Yes normal to inspection, Yes normocephalic and Yes atraumatic Mouth: Normal oral and palatal mucosa present and tongue normal Throat: Yes posterior oropharynx normal and Yes uvula midline Eyes General: appearance normal, both eyes and all related structures Neck Neck: Yes normal visual inspection, Yes full ROM and Yes no lymphadenopathy Thyroid: Thyroid normal Carotids: normal carotid upstroke Chest Chest palpation & inspection: normal inspection of the chest Resp Effort & Inspection: normal respiratory effort and able to speak in complete sentences Auscultation: clear to auscultation bilaterally Cardio Jugular venous distension: no JVD Palpation: normal PMI Rate: regular rate Rhythm: regular rhythm Heart sounds: S1 normal heart sound present and S2 normal heart sound present GI Inspection: Yes normal to inspection Palpation (GI): Soft to palpation and No hepatosplenomegaly present Auscultation: normal bowel sounds General: Yes no CVA tenderness Back/Spine/Pelvis Back: no CVA tenderness Skin General skin exam: no rashes or lesions noted Neuro General: oriented to person, oriented to place and oriented to time Extrem General: Yes normal to inspection and Yes full ROM Coding Level of Care Code Est Pt Prev Care >65y(92150) Diagnoses Physical exam Z00.00 Aortic valve sclerosis I35.8 Other and unspecified hyperlipidemia E78.5 Hypotension I95.9 Assessment & Plan Assessment & Plan (1) Physical exam: Code(s): Z00.00 - Encounter for general adult medical examination without abnormal findings Category: Medical Plan: stable (2) Aortic valve sclerosis: Code(s): I35.8 - Other nonrheumatic aortic valve disorders Category: Medical Plan: stable; per cardiology (3) Other and unspecified hyperlipidemia: Code(s): E78.5 - Hyperlipidemia, unspecified Category: Medical Plan: stable; same rx (4) Hypotension: Code(s): I95.9 - Hypotension, unspecified Category: Medical Plan: stable; same rx
== END 2024-09-07 10:18 | disposition home or self-care (01) ==
PROVIDERS: PCP Internal Medicine; Visit Provider Internal Medicine
DX: Z00.00 Encounter for general adult medical examination without abnormal findings (principal); I35.8 Other nonrheumatic aortic valve disorders; E78.5 Hyperlipidemia, unspecified; I95.9 Hypotension, unspecified

== ENCOUNTER → 2024-09-07 09:40 | Outpatient (BNVA) | payer MEDICARE, BC, SELFPAY | PROVIDERS: PCP Internal Medicine; Visit Provider Internal Medicine | DX: Z00.00 Encounter for general adult medical examination without abnormal findings (principal); I35.8 Other nonrheumatic aortic valve disorders; E78.5 Hyperlipidemia, unspecified; I95.9 Hypotension, unspecified | CPT/HCPCS: 96127; 99397 ==

== ENCOUNTER 2024-09-18 09:47 | Outpatient (AMB) | payer MEDICARE, BC, SELFPAY ==
--- NOTE | 2024-09-18 09:52 | MHC.OFFVIS ---
Intake Visit Reasons: 5 wk PO- TURP, Cystolitholipaxy- follow up Intake Note: Patient is present for 5 week PO-Turp, Cystolithollipasy follow up Urology Med: Finasteride, Tamsulosin Antibiotic Allergy: None Blood Thinner: None Todays PVR: 0ml Patient Symptoms: None Underground Supervisor Required: No Accompanied by: Self / Same As Patient Allergies No Known Allergies Allergy (Verified 09/18/24 09:59) Medication List - Last Reconciled 09/18/24 by Rodrigo Bhagat MD albuterol sulfate 90 mcg/actuation 2 puffs inhalation Q4-6H PRN atorvastatin 80 mg PO DAILY ezetimibe 10 mg PO DAILY finasteride (Proscar) 5 mg PO DAILY fludrocortisone 0.1 mg PO DAILY fluticasone propionate 50 mcg/actuation 1 spray intranasal BID solifenacin (Vesicare) 5 mg PO BEDTIME tamsulosin 0.4 mg PO DAILY HPI Comments Details: 09/18/24--s/p 07/25/24-Cystoscopy, cystolitholipaxy bladder stone, transurethral resection of Prostate. Pathology benign prostate tissue with chronic inflammation. Last seen on 08/07/2024, at which time started on VESIcare due to urge symptoms and treated with Bactrim for 5 days. He states he is doing much better urinalysis is negative bladder scan PVR minimal. Will continue to monitor kidney stone. Follow-up in 6 months renal ultrasound prior. Review of chart: 08/07/24--s/p 07/25/24-Cystoscopy, cystolitholipaxy bladder stone, transurethral resection of Prostate. Discussed pathology benign prostate tissue with chronic inflammation. The patient states that he is at urinary urgency especially at nighttime and occasional burning with urination. He also still has intermittent blood in the urine. I will empirically place him on Bactrim DS 1 tab twice a day for 5 days and VESIcare at bedtime. He will continue the tamsulosin and finasteride during the daytime. Follow-up in 1 month to re-evaluate urinary symptoms. 07/03/24--Here for cystoscopy. Cystoscopy findings: Bladder calculus, prostatic urethra obstructive, bulbous urethra WNL, no suspicious bladder lesions visualized. Discussed cystolitholipaxy. TURP. Cystoscopy. Discussed risks to include but not limited to, blood in the urine, burning with urination, urgency. Orozco catheter. 05/17/2024--Shreyas is a 74-year-old male who was scheduled today for follow-up gross hematuria, renal ultrasound results and office cystoscopy. The patient had questions regarding the procedure which were answered. I have discussed the renal ultrasound 04/25/2024 notes a 4 mm nonobstructing right kidney stone. Patient had blood work 02/04/2024-renal function is within normal limits. BUN 12, creatinine 0.92. Plan to reschedule office cystoscopy. Continue tamsulosin. 03/16/24--Shreyas is here for annual FU. H/O kidney stones. discussed PSA results-- 03/15/24-- 1.41 ng/mL. He states he has seen blood in the urine. I have discussed reevaluation of urinary tract. renal US with fu office cysto. 02/17/23-- Shreyas is a 73-year-old male who presents to the office who presents to the office for discussion of 24-hour urine test results. The patient is taking tamsulosin 0.4 mg daily without any reported side effects. Evaluation today-- Blood: negative, leukocytes: negative. CTAP results reviewed?01/20/23-- no renal calculi noted. Mildly enlarged prostate noted. Discussed 24 hour urine results?collected 01/21/23-- Total volume 1.61 L, Calcium 179 mg; Oxalate 29 mg, Sodium 137, Citrate 725 mg. Instructed on importance of fluid intake, Low oxalate diet, low sodium diet. Plan: Discussed to consume 2-2.5 liters of water daily. Repeat PSA blood work. Follow-up after one year. [facility] Medical History Pulmonary nodule Nephrolithiasis BPH (benign prostatic hyperplasia) Mitral annular calcification Nonrheumatic aortic (valve) stenosis Family history of coronary artery disease Idiopathic hypotension Hyperlipidemia Surgical History History of nasal surgery History of hernia surgery Family History Mother No problems noted. Father High cholesterol History of open heart surgery Brother History of heart artery stent Social History Household Members: Spouse Housing: House Do you presently have visiting nurse or other home services: No Alcohol intake: current Alcohol intake frequency: a few times a week Alcohol type: wine Patient Tobacco Use Status: Never used Tobacco Tobacco use type: Cigarette e-Cigarette/Vaping Use: Never Used Second Hand Smoke Exposure: No service: No Current occupational status: retired Cognitive needs: No Hearing needs: No Vision needs: Yes (glasses) Review of Systems Const All systems reviewed & are unremarkable except as noted in HPI and below Reports no additional complaints Eyes Reports no additional complaints ENT Reports no additional complaints Card Reports no additional complaints Resp Reports no additional complaints GI Reports no additional complaints Reports as per HPI Musc Reports no additional complaints Skin/Breast Reports system reviewed and no additional complaints, except as documented Neuro Reports no additional complaints Psych Reports no additional complaints Endo Reports no additional complaints Duc/Lymph Reports no additional complaints Aller/Immun Reports no additional complaints Office Procedures Post Void Residual Post Residual Void Post Void Residual (PVR): 0 [id number] Void Residual by ultrasound Results AMB Urinalysis, Automated UA Leukoctes 0 Star/uL Last Edit by Edyta Cheng CMA on 09/18/24 10:07 UA Nitrite Negative Last Edit by Edyta Cheng CMA on 09/18/24 10:07 UA Urobilinogen 0.2 mg/dL Last Edit by Edyta Cheng CMA on 09/18/24 10:07 UA Protein 0 mg/dL Last Edit by Edyta Cheng CMA on 09/18/24 10:07 UA pH 6.0 Last Edit by Edyta Cheng CMA on 09/18/24 10:07 UA Blood 0 Kervin/uL Last Edit by Edyta Cheng CMA on 09/18/24 10:07 UA Specific [place] 1.030 Last Edit by Edyta Cheng CMA on 09/18/24 10:07 UA Ketone Negative Last Edit by Edyta Cheng CMA on 09/18/24 10:07 UA Bilirubin 0 mg/dL Last Edit by Edyta Cheng CMA on 09/18/24 10:07 UA Glucose 0 mg/dL Last Edit by Edyta Cheng CMA on 09/18/24 10:07 Results Reviewed Results Reviewed: Laboratory Last Values Urine pH (Auto) 6.0 09/18/24 09:54 Specific [place] (Auto) 1.030 09/18/24 09:54 Urine Protein (Auto) 0 mg/dL 09/18/24 09:54 Glucose (UA)(Auto) 0 mg/dL 09/18/24 09:54 Urine Ketones (Auto) Negative 09/18/24 09:54 Urine Blood (Auto) 0 Kervin/uL 09/18/24 09:54 Urine Nitrite (Auto) Negative 09/18/24 09:54 Urine Bilirubin (Auto) 0 mg/dL 09/18/24 09:54 Urine Urobilinogen (Auto) 0.2 mg/dL 09/18/24 09:54 Leukocyte Esterase (Auto) 0 Star/uL 09/18/24 09:54 Assessment & Plan Assessment & Plan (1) BPH loc w urin obs/LUTS: Code(s): N40.1 - Benign prostatic hyperplasia with lower urinary tract symptoms Category: Medical (2) Hematuria: Code(s): R31.9 - Hematuria, unspecified Category: Medical (3) Nephrolithiasis: Code(s): N20.0 - Calculus of kidney Category: Medical (4) Urinary urgency: Code(s): R39.15 - Urgency of urination Category: Medical Plan Continue VESIcare at bedtime for urgency, continue Proscar and tamsulosin for now. Monitor kidney stone. Follow-up in 6 months renal ultrasound prior. Orders: Orders AMB Urinalysis Automated Today Z13.9 - Encounter for screening, unspecified AMB Post Void Residual by ultrasound Today R35.0 - Frequency of micturition US renal BI 5 Months N20.0 - Calculus of kidney Medications: Refilled finasteride (Proscar) 5 mg PO DAILY 90 tabs 3RF enlarged prosate solifenacin (Vesicare) 5 mg PO BEDTIME 90 tabs 3RF Patient Instructions: The patient had an opportunity to ask questions regarding treatment plan. The patient expressed understanding and agreement with the above treatment plan. The patient is aware they should contact our office by phone for worsening of their current condition or the appearance of new symptoms. Compliance is encouraged with any medications and followup testing that is ordered. It is a privilege to be allowed the opportunity to participate in the urologic care of your patient. If you have any questions or concerns regarding treatment for the above conditions please do not hesitate to contact me. The office telephone contact is [phone]. This note is constructed in part using voice recognition software. While every effort has been made to ensure accuracy direct support staff member errors may have been included. Yours sincerely, Rodrigo Bhagat MD Coding Level of Care Code Est Pt Level 3 (06724) Global (64729) Diagnoses BPH loc w urin obs/LUTS N40.1 Hematuria R31.9 Nephrolithiasis N20.0 Urinary urgency R39.15 CPT Codes Post Residual Void - PVR CPT Code: 44782-Mrrt Void Residual by ultrasound ([id number]) Comment Global for TURP, follow-up level 3 for right kidney stone
== END 2024-09-18 10:18 | disposition home or self-care (01) ==
PROVIDERS: PCP Internal Medicine; Visit Provider Urology
DX: N40.1 Benign prostatic hyperplasia with lower urinary tract symptoms (principal); R31.9 Hematuria, unspecified; N20.0 Calculus of kidney; R39.15 Urgency of urination; Z13.9 Encounter for screening, unspecified
CPT/HCPCS: 99024

== ENCOUNTER → 2024-09-18 09:47 | Outpatient (BNVA) | payer MEDICARE, BC, SELFPAY | PROVIDERS: PCP Internal Medicine; Visit Provider Urology | DX: N40.1 Benign prostatic hyperplasia with lower urinary tract symptoms (principal); R39.15 Urgency of urination; N20.0 Calculus of kidney; R31.9 Hematuria, unspecified | CPT/HCPCS: 51798; 81003; 99212 ==

== ENCOUNTER 2024-11-07 10:16 | Outpatient (AMB) | payer MEDICARE, BC, SELFPAY ==
[2024-11-07 10:27] VITALS: BP 144/78; PULSE 93; BMI 29.3
--- NOTE | 2024-11-07 10:27 | MHC.OFFVIS ---
Vital Signs 11/07/24 10:27 Height 5 ft 4 in Weight 170 lb 10.205 oz BMI 29.3 BP 144/78 H Blood Pressure Location Lt brachial Position Sitting Pulse 93 Pulse Source Pulse Oximeter Intake Visit Reasons: 1yr f/up r/s from 09/06 Etl Database Developer Required: No Accompanied by: Self / Same As Patient Allergies No Known Allergies Allergy (Verified 09/18/24 09:59) Medication List - Last Reconciled 11/07/24 by Wali Madrigal MD albuterol sulfate 90 mcg/actuation 2 puffs inhalation Q4-6H PRN atorvastatin 80 mg PO DAILY ezetimibe 10 mg PO DAILY finasteride (Proscar) 5 mg PO DAILY fludrocortisone 0.1 mg PO DAILY fluticasone propionate 50 mcg/actuation 1 spray intranasal BID solifenacin (Vesicare) 5 mg PO BEDTIME tamsulosin 0.4 mg PO DAILY HPI Comments Details: Shreyas returns for follow-up. Previously, patient of . Has family history of cardiac issues. Brother has coronary stents and he is younger than patient. Father has had bypass surgeries in 50s/60s. Patient himself has dyslipidemia on meds. He also has a history of hypotension for which she takes long-term Florinef. Since last seen, no new concerns. Active with no limitations. No angina or in fact any cardiac complaints. No dizziness. [facility] Medical History Pulmonary nodule Nephrolithiasis BPH (benign prostatic hyperplasia) Mitral annular calcification Nonrheumatic aortic (valve) stenosis Family history of coronary artery disease Idiopathic hypotension Hyperlipidemia Surgical History History of nasal surgery History of hernia surgery Family History Mother No problems noted. Father High cholesterol History of open heart surgery Brother History of heart artery stent Social History Household Members: Spouse Housing: House Do you presently have visiting nurse or other home services: No Alcohol intake: current Alcohol intake frequency: a few times a week Alcohol type: wine Patient Tobacco Use Status: Never used Tobacco Tobacco use type: Cigarette e-Cigarette/Vaping Use: Never Used Second Hand Smoke Exposure: No service: No Current occupational status: retired Cognitive needs: No Hearing needs: No Vision needs: Yes (glasses) Review of Systems Const Denies chills, Denies fatigue, Denies fever(s), Denies weight gain and Denies weight loss ENT Denies dizziness Card Denies chest pain, Denies leg edema, Denies lightheadedness, Denies palpitations, Denies dyspnea on exertion, Denies orthopnea and Denies other Resp Denies cough and Denies dyspnea on exertion GI Denies hematochezia and Denies change in stool character Musc Denies abnormal gait, Denies muscle weakness, Denies numbness, Denies radiating pain into limb and Denies tingling Neuro Denies abnormal gait, Denies dizziness, Denies numbness and Denies tingling Endo Denies fatigue and Denies palpitations Physical Exam Vital Signs: Last Vital Signs Pulse 93 11/07/24 10:27 BP 144/78 H 11/07/24 10:27 BMI result Body Mass Index 29.3 Const General: comfortable and no acute distress Orientation/consciousness: patient oriented x3 HEENT Other: Unremarkable Head: Yes normal to inspection Neck Neck: Yes normal visual inspection Chest Chest palpation & inspection: normal inspection of the chest Resp Auscultation: clear to auscultation bilaterally Cardio Palpation: normal PMI Heart sounds: S1 normal heart sound present, S2 normal heart sound present, no gallops, Murmur heart sound present systolic II/ and at the right sternal border and no rubs GI Palpation (GI): Soft to palpation Back/Spine/Pelvis Other: unremarkable Skin General skin exam: no rashes or lesions noted Neuro General: patient oriented x3 Extrem General: Yes normal to inspection Psych Mental Status: mental status grossly normal Assessment & Plan Assessment & Plan (1) Atherosclerotic cardiovascular disease: Code(s): I25.10 - Atherosclerotic heart disease of [place] coronary artery without angina pectoris Category: Medical Plan: EKG with sinus rhythm/PACs. Unated chest CT scan shows coronary artery calcification. Myocardial perfusion imaging study unremarkable at 7 METS exercise capacity. Clinically, he does not have any symptoms. On statins and Zetia. Last LDL 72 mg/dL. Triglycerides 83 mg/dL. (2) Nonrheumatic aortic (valve) stenosis: Code(s): I35.0 - Nonrheumatic aortic (valve) stenosis Category: Medical Plan: Echocardiogram with severe aortic valve calcification. Mild stenosis. Can be followed periodically. (3) Mitral annular calcification: Code(s): I05.9 - Rheumatic mitral valve disease, unspecified Category: Medical Plan: Echocardiogram with moderate mitral annular calcification. No significant valvular dysfunction. (4) Other and unspecified hyperlipidemia: Code(s): E78.5 - Hyperlipidemia, unspecified Category: Medical Plan: On statins and Zetia. (5) Idiopathic hypotension: Code(s): I95.0 - Idiopathic hypotension Category: Medical Plan: He has taken fludrocortisone long-term. He is not sure if he is taking it daily or alternate days. Blood pressure is actually on the higher side. Advised him to cut back and see how he feels. If blood pressure is stable and he is no longer dizzy, may not need that. He states he will try. Coding Level of Care Code Est Pt Level 4 (35637) Diagnoses Atherosclerotic cardiovascular disease I25.10 Nonrheumatic aortic (valve) stenosis I35.0 Mitral annular calcification I05.9 Other and unspecified hyperlipidemia E78.5 Idiopathic hypotension I95.0
== END 2024-11-07 10:46 | disposition home or self-care (01) ==
PROVIDERS: PCP Internal Medicine; Visit Provider Internal Medicine
DX: I25.10 Atherosclerotic heart disease of native coronary artery without angina pectoris (principal); I35.0 Nonrheumatic aortic (valve) stenosis; I05.9 Rheumatic mitral valve disease, unspecified; E78.5 Hyperlipidemia, unspecified; I95.0 Idiopathic hypotension
CPT/HCPCS: 99214

== ENCOUNTER → 2024-11-07 10:16 | Outpatient (BNVA) | payer MEDICARE, BC, SELFPAY | PROVIDERS: PCP Internal Medicine; Visit Provider Internal Medicine | DX: I25.10 Atherosclerotic heart disease of native coronary artery without angina pectoris (principal); I35.0 Nonrheumatic aortic (valve) stenosis; I05.9 Rheumatic mitral valve disease, unspecified; I95.0 Idiopathic hypotension; E78.5 Hyperlipidemia, unspecified | CPT/HCPCS: 99212 ==

== ENCOUNTER 2025-01-17 09:43 | Outpatient (AMB) | payer MEDICARE, BC, SELFPAY ==
[2025-01-17 09:50] VITALS: BP 142/80; PULSE 86; TEMP 36.3; O2SAT 97; BMI 28.9
--- NOTE | 2025-01-17 09:50 | MHC.PC.OV ---
Vital Signs 01/17/25 09:50 Height 5 ft 4 in Weight 168 lb 8 oz BMI 28.9 BP 142/80 H Blood Pressure Location Lt brachial Position Sitting Pulse 86 Pulse Source Pulse Oximeter Temp 97.3 F Temp Source Temporal Artery Scan Pulse Oximetry (%) 97 Oxygen Delivery Method Room Air Intake Visit Reasons: joycelyn Dr. 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: No Accompanied by: Self / Same As Patient Allergies No Known Allergies Allergy (Verified 01/17/25 09:59) Medication List - Last Reconciled 01/17/25 by Laura Moe MD albuterol sulfate 90 mcg/actuation 2 puffs inhalation Q4-6H PRN atorvastatin 80 mg PO DAILY ezetimibe 10 mg PO DAILY finasteride (Proscar) 5 mg PO DAILY fludrocortisone 0.1 mg PO DAILY fluticasone propionate 50 mcg/actuation 1 spray intranasal BID solifenacin (Vesicare) 5 mg PO BEDTIME tamsulosin 0.4 mg PO DAILY Tobacco use date assessed: 01/17/25 Fall risk assessment: No Falls in past year Last assessed Fall Risk: 01/17/25 Dental Screening Dental Screen Date: 01/17/25 Did you have a dental visit in the last 12 months?: Yes Did you have a dental problem in the last 6 months where you did not have access to dental care?: No Was dental information given to patient?: Patient has dentist HPI HPI Comments History of Present Illness Details The patient is a 75-year-old male presenting for follow-up of idiopathic hypotension with recent home blood pressure readings maintaining generally below 140/90. Tetanus vaccination is required due to over ten years since the last, and arrangements are being made for administration possibly through pharmacy procurement. He has benign prostatic hyperplasia managed with ProScar. Cardiovascular assessment reveals mild aortic stenosis with regular cardiology surveillance, last noted as stable with continued annual echocardiography planned. Episodes of lightheadedness were resolved with the resumption of fludrocortisone on a modified schedule, and echocardiogram continues to show normal ejection fraction. Hypercholesterolemia has been well-managed with atorvastatin and ezetimibe, with liver, kidney function, and other parameters like thyroid and cholesterol showing unremarkable values, except for a mild reduction in the hemoglobin from the previous visit. His familial history reveals his mother's hypercholesterolemia and heart surgery but no critical past personal cardiovascular events. [facility] Medical History (Updated 01/17/25 @ 10:15 by Laura Moe MD) Pulmonary nodule Nephrolithiasis BPH (benign prostatic hyperplasia) Mitral annular calcification Nonrheumatic aortic (valve) stenosis Family history of coronary artery disease Idiopathic hypotension Hyperlipidemia Surgical History History of nasal surgery History of hernia surgery Family History Mother No problems noted. Father High cholesterol History of open heart surgery Brother History of heart artery stent Social History (Updated 01/17/25 @ 10:05 by Laura Moe MD) Household Members: Spouse Housing: House Do you presently have visiting nurse or other home services: No Alcohol intake: current Alcohol intake frequency: a few times a week Alcohol type: wine and hard liquor Patient Tobacco Use Status: Former Tobacco user Tobacco use type: Cigarette e-Cigarette/Vaping Use: Never Used Second Hand Smoke Exposure: No service: No Current occupational status: retired Cognitive needs: No Hearing needs: No Vision needs: Yes (glasses) Questionnaire PHQ-9 Over the last 2 weeks, how often have you been bothered by any of the following problems? 1. Little interest or pleasure in doing things: not at all 2. Feeling down, depressed, or hopeless: not at all 3. Trouble falling or staying asleep, or sleeping too much: not at all 4. Feeling tired or having little energy: not at all 5. Poor appetite or overeating: not at all 6. Feeling bad about yourself - or that you are a failure or have let yourself or your family down: not at all 7. Trouble concentrating on things, such as reading the newspaper or watching television: not at all 8. Moving or speaking so slowly that other people could have noticed. Or the opposite - being so fidgety or restless that you have been moving around a lot more than usual: not at all 9. Thoughts that you would be better off or of hurting yourself in some way: not at all Total score: 0 Depression Screening Interpretation: Negative Depression Screening Done: Yes 99915 - PHQ-9 Billing: Yes Source: Developed by Anjana Reese[employer]. [place], Steve Willoughby and colleagues, with an educational suzi from [employer] Thrive Questionnaire Date Thrive assessed: 01/17/25 I am a: Patient What is your living situation today?: I have a steady place to live Within the past 12 months, did the food you bought not last and you didn't have the money to get more?: Never true Within the past 12 months, did you worry whether your food would run out before you got money to buy more?: Never true Do you have trouble paying for medicines?: No Do you have trouble getting transportation to medical appointments?: No Do you have trouble paying your heating and electricity bill?: No Do you have trouble taking care of your child, family member or friend?: No Do you have trouble with day-to-day activities such as bathing, preparing meals, shopping, managing finances, etc.?: No Are you currently unemployed and looking for a job?: No Are you interested in more education?: No Please select the resources that you would like help with: None Currently or been in a relationship where the following occur: No concerns reported THRIVE Score: 0 AUDIT C Alcohol Use Questionnaire (AUDIT-C) 1. How often do you have a drink containing alcohol?: Monthly or less 2. How many drinks containing alcohol do you have on a typical day when you are drinking?: 1 or 2 3. How often do you have six or more drinks on one occasion?: Never Total Score: 1 LINDA-7 AMB Questionnaire LINDA-7 Date LINDA - 7 assessed: 01/17/25 Feeling nervous, anxious, or on edge: 0 = Not at all Not being able to stop or control worryin = Not at all Worrying too much about different things: 0 = Not at all Trouble relaxin = Not at all Being so restless that it is hard to sit still: 0 = Not at all Becoming easily annoyed or irritable: 0 = Not at all Feeling afraid as if something awful might happen: 0 = Not at all Total LINDA-7 score (0-4 normal; 5-9 mild; 10-14 moderate; 15-21 severe): 0 Source: Developed by Drs. Jaspreet Steven, Steve Holland and colleagues, with an educational suzi from [employer] LINDA-7 Assessment Billing LINDA-7 Assessment Tool: LINDA-7 Assessment 44288 Review of Systems Const All systems reviewed & are unremarkable except as noted in HPI and below Card Denies chest pain at rest, Denies chest pain with activity, Denies edema, Denies irregular heart rhythm, Denies claudication, Denies dyspnea, Denies dyspnea on exertion, Denies orthopnea, Denies paroxysmal nocturnal dyspnea and Denies slow heart rate Resp Denies cough, Denies dyspnea and Denies dyspnea on exertion Physical exam (Primary Care) Vital Signs: Last Vital Signs Temp 97.3 F 01/17/25 09:50 Pulse 86 01/17/25 09:50 BP 142/80 H 01/17/25 09:50 Pulse Ox 97 01/17/25 09:50 Oxygen Delivery Method Room Air 01/17/25 09:50 BMI result Body Mass Index 28.9 Tobacco/Smoking Status: Tobacco use Status Tobacco use date assessed 01/17/25 01/17/25 09:55 Patient Tobacco Use Status Never used Tobacco 01/17/25 09:55 Tobacco use type Cigarette 01/17/25 09:55 e-Cigarette/Vaping Use Never Used 01/17/25 09:55 PHQ-9: PHQ-9 Score PHQ-9: Total score 0 01/17/25 10:01 Depression Screening Interpretation: Negative Thrive Assessment: Date of Thrive Assessment Date Thrive assessed 01/17/25 01/17/25 09:55 Currently or been in a relationship where the following occur: No concerns reported Const General: cooperative Resp Effort & Inspection: normal respiratory effort Auscultation: clear to auscultation bilaterally Cardio Jugular venous distension: no JVD Rate: regular rate Rhythm: regular rhythm Heart sounds: Murmur heart sound present systolic at the left sternal border Extrem General: Yes full ROM Coding Level of Care Code Est Pt Level 4 (66076) Complex EM visit Add On G2211 Diagnoses BPH loc w urin obs/LUTS N40.1 Idiopathic hypotension I95.0 Hyperlipidemia E78.5 Nonrheumatic aortic (valve) stenosis I35.0 Anemia D64.9 Additional Codes LINDA-7 Assessment Billing - LINDA-7 Assessment Tool: LINDA-7 Assessment 94926 ([id number]) PHQ-9 - 73746 - PHQ-9 Billing: Yes ([id number]) Time Spent (min) 23 Assessment & Plan Assessment & Plan (1) BPH loc w urin obs/LUTS: Code(s): N40.1 - Benign prostatic hyperplasia with lower urinary tract symptoms Category: Medical (2) Idiopathic hypotension: Code(s): I95.0 - Idiopathic hypotension Category: Medical (3) Hyperlipidemia: Code(s): E78.5 - Hyperlipidemia, unspecified Category: Medical (4) Nonrheumatic aortic (valve) stenosis: Code(s): I35.0 - Nonrheumatic aortic (valve) stenosis Category: Medical (5) Anemia: Code(s): D64.9 - Anemia, unspecified Category: Medical Plan The patient will continue to monitor blood pressure regularly at home while maintaining compliance with current guidelines. Arrangements for a tetanus booster will be pursued through pharmacy services due to Medicare coverage constraints. Continued use of ProScar and other urological medications, as previously prescribed, is in place along with annual echocardiography to monitor mild aortic stenosis. Fludrocortisone usage on an alternate-day regime will continue as it resolves lightheadedness without further complications. The last bloodwork indicates stable cholesterol and liver function, with follow-up for hemoglobin monitoring to be scheduled. Lifestyle choices, including moderate alcohol consumption, align with healthcare recommendations. Patient was informed and verbally consented to the use of an ambient scribe for clinic note documentation during this visit. I discussed with the patient the current management of his medical conditions, emphasizing the importance of regular blood pressure monitoring and consistent medication adherence. We addressed the lack of a recent tetanus vaccine and explored options for obtaining it through pharmacy resources, discussing Medicare coverage limitations. The patient agreed to continue cardiology follow-ups for ongoing surveillance of aortic stenosis and resuming fludrocortisone was confirmed to alleviate lightheaded symptoms effectively. Ongoing cholesterol management was reaffirmed following normal lab results. Potential dietary impacts on mild anemia are considered, warranting planned reassessment. Lifestyle modifications are discussed and continued accountability through regular monitoring is encouraged. Orders: Orders Complete Blood Count Auto Diff 7 Months D64.9 - Anemia, unspecified Lipid Panel 7 Months E78.5 - Hyperlipidemia, unspecified IRON PROFILE 7 Months D64.9 - Anemia, unspecified Comprehensive [place]. Panel Fast 7 Months I25.10 - Atherosclerotic heart disease of [place] coronary artery without angina pectoris Patient Instructions: - Monitor blood pressure at home regularly and keep a detailed log. - Consider obtaining a tetanus booster from a pharmacy. - Continue taking ProScar and current urological medications. - Follow up with sizing sprayer annually for echocardiography. - Continue fluocortisone every other day. - Follow a balanced diet and stay hydrated. - Stay active according to your ability and doctor's advice. - Schedule a hemoglobin recheck as advised. - Report any new or worsening symptoms promptly.
--- NOTE | 2025-01-17 09:50 | MHC.PC.OV ---
Vital Signs 01/17/25 09:50 Height 5 ft 4 in Weight 168 lb 8 oz BMI 28.9 BP 142/80 H Blood Pressure Location Lt brachial Position Sitting Pulse 86 Pulse Source Pulse Oximeter Temp 97.3 F Temp Source Temporal Artery Scan Pulse Oximetry (%) 97 Oxygen Delivery Method Room Air Intake Visit Reasons: joycelyn Dr. 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 Required: No Accompanied by: Self / Same As Patient Allergies No Known Allergies Allergy (Verified 01/17/25 09:59) Medication List - Last Reconciled 01/17/25 by Laura Moe MD albuterol sulfate 90 mcg/actuation 2 puffs inhalation Q4-6H PRN atorvastatin 80 mg PO DAILY ezetimibe 10 mg PO DAILY finasteride (Proscar) 5 mg PO DAILY fludrocortisone 0.1 mg PO DAILY fluticasone propionate 50 mcg/actuation 1 spray intranasal BID solifenacin (Vesicare) 5 mg PO BEDTIME tamsulosin 0.4 mg PO DAILY Tobacco use date assessed: 01/17/25 Last assessed Fall Risk: 01/17/25 Dental Screening Dental Screen Date: 01/17/25 [facility] Medical History Pulmonary nodule Nephrolithiasis BPH (benign prostatic hyperplasia) Mitral annular calcification Nonrheumatic aortic (valve) stenosis Family history of coronary artery disease Idiopathic hypotension Hyperlipidemia Surgical History History of nasal surgery History of hernia surgery Family History Mother No problems noted. Father High cholesterol History of open heart surgery Brother History of heart artery stent Social History Household Members: Spouse Housing: House Do you presently have visiting nurse or other home services: No Alcohol intake: current Alcohol intake frequency: a few times a week Alcohol type: wine Patient Tobacco Use Status: Never used Tobacco Tobacco use type: Cigarette e-Cigarette/Vaping Use: Never Used Second Hand Smoke Exposure: No service: No Current occupational status: retired Cognitive needs: No Hearing needs: No Vision needs: Yes (glasses) Questionnaire PHQ-9 Over the last 2 weeks, how often have you been bothered by any of the following problems? 1. Little interest or pleasure in doing things: not at all 2. Feeling down, depressed, or hopeless: not at all 3. Trouble falling or staying asleep, or sleeping too much: not at all 4. Feeling tired or having little energy: not at all 5. Poor appetite or overeating: not at all 6. Feeling bad about yourself - or that you are a failure or have let yourself or your family down: not at all 7. Trouble concentrating on things, such as reading the newspaper or watching television: not at all 8. Moving or speaking so slowly that other people could have noticed. Or the opposite - being so fidgety or restless that you have been moving around a lot more than usual: not at all 9. Thoughts that you would be better off or of hurting yourself in some way: not at all Total score: 0 Depression Screening Interpretation: Negative Depression Screening Done: Yes 06069 - PHQ-9 Billing: Yes Source: Developed by Drs. Jaspreet Steven, Anjana Borjas, Steve Willoughby and colleagues, with an educational suzi from [employer]. Thrive Questionnaire Date Thrive assessed: 01/17/25 I am a: Patient What is your living situation today?: I have a steady place to live Within the past 12 months, did the food you bought not last and you didn't have the money to get more?: Never true Within the past 12 months, did you worry whether your food would run out before you got money to buy more?: Never true Do you have trouble paying for medicines?: No Do you have trouble getting transportation to medical appointments?: No Do you have trouble paying your heating and electricity bill?: No Do you have trouble taking care of your child, family member or friend?: No Do you have trouble with day-to-day activities such as bathing, preparing meals, shopping, managing finances, etc.?: No Are you currently unemployed and looking for a job?: No Are you interested in more education?: No Please select the resources that you would like help with: None Currently or been in a relationship where the following occur: No concerns reported THRIVE Score: 0 AUDIT C Alcohol Use Questionnaire (AUDIT-C) 1. How often do you have a drink containing alcohol?: Monthly or less 2. How many drinks containing alcohol do you have on a typical day when you are drinking?: 1 or 2 3. How often do you have six or more drinks on one occasion?: Never Total Score: 1 Score Reviewed/Action Taken: No LINDA-7 AMB Questionnaire LINDA-7 Date LINDA - 7 assessed: 01/17/25 Feeling nervous, anxious, or on edge: 0 = Not at all Not being able to stop or control worryin = Not at all Worrying too much about different things: 0 = Not at all Trouble relaxin = Not at all Being so restless that it is hard to sit still: 0 = Not at all Becoming easily annoyed or irritable: 0 = Not at all Feeling afraid as if something awful might happen: 0 = Not at all Total LINDA-7 score (0-4 normal; 5-9 mild; 10-14 moderate; 15-21 severe): 0 Source: Developed by Drs. Jaspreet Steven, Anjana Borjas, Steve Willoughby and colleagues, with an educational suzi from [employer]. LINDA-7 Assessment Billing LINDA-7 Assessment Tool: LINDA-7 Assessment 10524 Physical exam (Primary Care) Vital Signs: Last Vital Signs Temp 97.3 F 01/17/25 09:50 Pulse 86 01/17/25 09:50 BP 142/80 H 01/17/25 09:50 Pulse Ox 97 01/17/25 09:50 Oxygen Delivery Method Room Air 01/17/25 09:50 BMI result Body Mass Index 28.9 Tobacco/Smoking Status: Tobacco use Status Tobacco use date assessed 01/17/25 01/17/25 09:55 Patient Tobacco Use Status Never used Tobacco 01/17/25 09:55 Tobacco use type Cigarette 01/17/25 09:55 e-Cigarette/Vaping Use Never Used 01/17/25 09:55 PHQ-9: PHQ-9 Score PHQ-9: Total score 0 01/17/25 09:55 Depression Screening Interpretation: Negative Thrive Assessment: Date of Thrive Assessment Date Thrive assessed 01/17/25 01/17/25 09:55 Currently or been in a relationship where the following occur: No concerns reported Coding Additional Codes LINDA-7 Assessment Billing - LINDA-7 Assessment Tool: LINDA-7 Assessment 36772 ([id number]) PHQ-9 - 65402 - PHQ-9 Billing: Yes ([id number])
== END 2025-01-17 10:12 | disposition home or self-care (01) ==
LOC: HO.HMCH 09:44
PROVIDERS: PCP Internal Medicine; Visit Provider Internal Medicine
DX: N40.1 Benign prostatic hyperplasia with lower urinary tract symptoms (principal); I95.0 Idiopathic hypotension; E78.5 Hyperlipidemia, unspecified; I35.0 Nonrheumatic aortic (valve) stenosis; D64.9 Anemia, unspecified

== ENCOUNTER → 2025-01-17 09:43 | Outpatient (BNVA) | payer MEDICARE, BC, SELFPAY | PROVIDERS: PCP Internal Medicine; Visit Provider Internal Medicine | DX: N40.1 Benign prostatic hyperplasia with lower urinary tract symptoms (principal); I95.0 Idiopathic hypotension; E78.5 Hyperlipidemia, unspecified; I35.0 Nonrheumatic aortic (valve) stenosis; D64.9 Anemia, unspecified | CPT/HCPCS: 96127; 99212 ==

== ENCOUNTER 2025-02-05 08:08 | Outpatient (REF) | payer MEDICARE, BC, SELFPAY ==
[2025-02-07 23:19] LABS: TS Negative Control Passed; TS Panel A 0; TS Panel B 0; TS Positive Control Passed; TSpotTB Negative (Negative)
== END 2025-02-05 08:09 | disposition home or self-care (01) ==
LOC: HO.LAB 08:08
PROVIDERS: PCP Internal Medicine; Visit Provider Internal Medicine
DX: Z11.1 Encounter for screening for respiratory tuberculosis (principal)
CPT/HCPCS: 36415; 86481

== ENCOUNTER 2025-02-08 09:03 | Outpatient (REF) | payer MEDICARE, BC, SELFPAY ==
--- NOTE | ~2025-02-08 | XR_ITS ---
CLINICAL HISTORY: Z20.1 - Contact with and (suspected) exposure to tuberculosis 2 view chest x-ray Comparison: DX/SR - XR CHEST 2V - 02/03/24 10:42 EDT Findings: The lungs are clear. Heart size is normal. No acute fracture. IMPRESSION: 1. No acute findings. This document has been electronically signed by: Loraine Mcgee MD on 02/08/2025 14:33:58
== END 2025-02-08 09:04 | disposition home or self-care (01) ==
LOC: HO.XRAY 09:03
PROVIDERS: PCP Internal Medicine; Visit Provider Internal Medicine
DX: Z20.1 Contact with and (suspected) exposure to tuberculosis (principal)
CPT/HCPCS: 71046

== ENCOUNTER → 2025-02-08 09:07 | Outpatient (BNV) | payer MEDICARE, BC, SELFPAY | PROVIDERS: PCP Internal Medicine; Visit Provider Radiology Diagnostic Radiology | DX: Z20.1 Contact with and (suspected) exposure to tuberculosis (principal) | CPT/HCPCS: 71046 ==

== ENCOUNTER 2025-02-13 15:16 | Outpatient (REF) | payer MEDICARE, BC, SELFPAY ==
--- NOTE | ~2025-02-13 | US_ITS ---
EXAMINATION: US KIDNEY BILATERAL HISTORY: N20.0 - Calculus of kidney TECHNIQUE: Real-time grayscale ultrasound imaging of the kidneys was performed and images were reviewed. COMPARISON: Comparison is made with the prior examination dated 04/25/2024. FINDINGS: Right kidney: The right kidney measures 11.8 x 4.6 x 4.8 cm. Renal parenchymal echotexture and thickness are normal. There are no masses. There is a subcentimeter echogenic focus in the interpolar region which could represent a nonobstructing calculus or calcified vessel. There is no hydronephrosis. Left Kidney: The left kidney measures 11.1 x 5.4 x 4.8 cm. There is a hypertrophied column of Gibran. Renal parenchymal echotexture and thickness are otherwise normal. There are no masses. There is no hydronephrosis or renal calculi. US/US renal BI IMPRESSION: Subcentimeter nonobstructing calculus in the interpolar region of the right kidney versus a calcified vessel. Electronically signed by: Jaspreet Hoffman MD 02/13/2025 03:54 PM EDT
== END 2025-02-13 15:17 | disposition home or self-care (01) ==
LOC: HO.US 15:16
PROVIDERS: PCP Internal Medicine; Visit Provider Urology
DX: N20.0 Calculus of kidney (principal)
CPT/HCPCS: 76775

== ENCOUNTER → 2025-02-13 15:18 | Outpatient (BNV) | payer MEDICARE, BC, SELFPAY | PROVIDERS: PCP Internal Medicine; Visit Provider Radiology Diagnostic Radiology | DX: N20.0 Calculus of kidney (principal) | CPT/HCPCS: 76775 ==

== ENCOUNTER 2025-03-22 09:47 | Outpatient (AMB) | payer MEDICARE, BC, SELFPAY ==
--- NOTE | 2025-03-22 09:53 | A.OFFVIS_ITS ---
Intake Visit Reasons: 6m/US Intake Note: Patient is present for 6m follow up/US * Renal US 02/13 Urology Med: Finasteride, Tamsulosin, Solifenacin Antibiotic Allergy:None Blood Thinner:None PVR:0ml Insulation Sprayer Required: No Accompanied by: Self / Same As Patient Allergies No Known Allergies Allergy (Verified 03/22/25 09:55) Medication List - Last Reconciled 03/22/25 by Rodrigo Bhagat MD albuterol sulfate 90 mcg/actuation 2 puffs inhalation Q4-6H PRN atorvastatin 80 mg PO DAILY ezetimibe 10 mg PO DAILY finasteride (Proscar) 5 mg PO DAILY fludrocortisone 0.1 mg PO DAILY fluticasone propionate 50 mcg/actuation 1 spray intranasal BID solifenacin (Vesicare) 5 mg PO BEDTIME HPI Comments Details: 03/22/25-- History of Present Illness - The patient is a 75-year-old male presenting with management of Benign Prostatic Hyperplasia (BPH) and follow-up on urinary symptoms. - The patient has a history of Benign Prostatic Hyperplasia (BPH) and underwent transurethral resection of the prostate (TURP) in 2023. - The patient was experiencing urinary urgency and was started on Vesicare 5 mg. - The patient underwent lithotripsy for a bladder stone in 2023. - The patient had a renal ultrasound on 02/13/25 showing a subcentimeter stone in the right kidney. - The patient's PSA was normal last year at 1.41, and a new PSA test has been ordered. Results - Renal ultrasound on 02/13/25 showed a subcentimeter stone in the right kidney. - PSA level was 1.41 last year, and a new test has been ordered. Discussion Notes I discussed with the patient the stability of the kidney stone and the normal PSA level from last year. We talked about the effects of medications like tamsulosin and Vesicare on urinary symptoms and retrograde ejaculation. I advised stopping tamsulosin to see if it improves the ejaculation issue while monitoring urinary flow. I also ordered a PSA test and explained the preparation needed before the test, including avoiding coffee and sexual activity for 48 hours prior. 09/18/24--s/p 07/25/24-Cystoscopy, cystolitholipaxy bladder stone, transurethral resection of Prostate. Pathology benign prostate tissue with chronic inflammation. Last seen on 08/07/2024, at which time started on VESIcare due to urge symptoms and treated with Bactrim for 5 days. He states he is doing much better urinalysis is negative bladder scan PVR minimal. Will continue to monitor kidney stone. Follow-up in 6 months renal ultrasound prior. 08/07/24--s/p 07/25/24-Cystoscopy, cystolitholipaxy bladder stone, transurethral resection of Prostate. Discussed pathology benign prostate tissue with chronic inflammation. The patient states that he is at urinary urgency especially at nighttime and occasional burning with urination. He also still has intermittent blood in the urine. I will empirically place him on Bactrim DS 1 tab twice a day for 5 days and VESIcare at bedtime. He will continue the tamsulosin and finasteride during the daytime. Follow-up in 1 month to re-evaluate urinary symptoms. 07/03/24--Here for cystoscopy. Cystoscopy findings: Bladder calculus, prostatic urethra obstructive, bulbous urethra WNL, no suspicious bladder lesions visualized. Discussed cystolitholipaxy. TURP. Cystoscopy. Discussed risks to include but not limited to, blood in the urine, burning with urination, urgency. Orozco catheter. 05/17/2024--Shreyas is a 74-year-old male who was scheduled today for follow-up gross hematuria, renal ultrasound results and office cystoscopy. The patient had questions regarding the procedure which were answered. I have discussed the renal ultrasound 04/25/2024 notes a 4 mm nonobstructing right kidney stone. Patient had blood work 02/04/2024-renal function is within normal limits. BUN 12, creatinine 0.92. Plan to reschedule office cystoscopy. Continue tamsulosin. 03/16/24--Shreyas is here for annual FU. H/O kidney stones. discussed PSA results-- 03/15/24-- 1.41 ng/mL. He states he has seen blood in the urine. I have discussed reevaluation of urinary tract. renal US with fu office cysto. 02/17/23-- Shreyas is a 73-year-old male who presents to the office who presents to the office for discussion of 24-hour urine test results. The patient is taking tamsulosin 0.4 mg daily without any reported side effects. Evaluation today-- Blood: negative, leukocytes: negative. CTAP results reviewed?01/20/23-- no renal calculi noted. Mildly enlarged prostate noted. Discussed 24 hour urine results?collected 01/21/23-- Total volume 1.61 L, Calcium 179 mg; Oxalate 29 mg, Sodium 137, Citrate 725 mg. Instructed on importance of fluid intake, Low oxalate diet, low sodium diet. Plan: Discussed to consume 2- 2.5 liters of water daily. Repeat PSA blood work. Follow-up after one year. [facility] Medical History Pulmonary nodule Nephrolithiasis BPH (benign prostatic hyperplasia) Mitral annular calcification Nonrheumatic aortic (valve) stenosis Family history of coronary artery disease Idiopathic hypotension Hyperlipidemia Surgical History History of nasal surgery History of hernia surgery Family History Mother No problems noted. Father High cholesterol History of open heart surgery Brother History of heart artery stent Social History Household Members: Spouse Housing: House Do you presently have visiting nurse or other home services: No Alcohol intake: current Alcohol intake frequency: a few times a week Alcohol type: wine and hard liquor Patient Tobacco Use Status: Former Tobacco user Tobacco use type: Cigarette e-Cigarette/Vaping Use: Never Used Second Hand Smoke Exposure: No service: No Current occupational status: retired Cognitive needs: No Hearing needs: No Vision needs: Yes (glasses) Review of Systems Const All systems reviewed & are unremarkable except as noted in HPI and below Reports no additional complaints Eyes Reports no additional complaints ENT Reports no additional complaints Card Reports no additional complaints Resp Reports no additional complaints GI Reports no additional complaints Reports as per HPI Musc Reports no additional complaints Skin/Breast Reports system reviewed and no additional complaints, except as documented Neuro Reports no additional complaints Psych Reports no additional complaints Endo Reports no additional complaints Duc/Lymph Reports no additional complaints Aller/Immun Reports no additional complaints Office Procedures Post Void Residual Post Residual Void Post Void Residual (PVR): 0 [id number] Void Residual by ultrasound Results AMB Urinalysis, Automated UA Leukoctes 0 Star/uL Last Edit by Crystal Hu on 03/22/25 13:43 UA Nitrite Negative Last Edit by Crystal Hu on 03/22/25 13:43 UA Urobilinogen 3.5 mg/dL Last Edit by Crystal Hu on 03/22/25 13:43 UA Protein 0 mg/dL Last Edit by Crystal Hu on 03/22/25 13:43 UA pH 6.0 Last Edit by Crystal Hu on 03/22/25 13:43 UA Blood 0 Kervin/uL Last Edit by Crystal Hu on 03/22/25 13:43 UA Specific [place] 1.015 Last Edit by Crystal Hu on 03/22/25 13:43 UA Ketone Negative Last Edit by Crystal Hu on 03/22/25 13:43 UA Bilirubin 0 mg/dL Last Edit by Crystal Hu on 03/22/25 13:43 UA Glucose 0 mg/dL Last Edit by Crystal Hu on 03/22/25 13:43 Results Reviewed Results Reviewed: Date of Service: 02/13/25 Procedure(s): US renal BI Accession Number(s): [id number] cc: Rodrigo Bhagat MD; Laura Varma MD~ EXAMINATION: US KIDNEY BILATERAL HISTORY: N20.0 - Calculus of kidney TECHNIQUE: Real-time grayscale ultrasound imaging of the kidneys was performed and images were reviewed. COMPARISON: Comparison is made with the prior examination dated 04/25/2024. FINDINGS: Right kidney: The right kidney measures 11.8 x 4.6 x 4.8 cm. Renal parenchymal echotexture and thickness are normal. There are no masses. There is a subcentimeter echogenic focus in the interpolar region which could represent a nonobstructing calculus or calcified vessel. There is no hydronephrosis. Left Kidney: The left kidney measures 11.1 x 5.4 x 4.8 cm. There is a hypertrophied column of Gibran. Renal parenchymal echotexture and thickness are otherwise normal. There are no masses. There is no hydronephrosis or renal calculi. IMPRESSION: Subcentimeter nonobstructing calculus in the interpolar region of the right kidney versus a calcified vessel. Collected: 07/25/24 Location: [facility] Received: 07/25/24 Diagnosis A. Bladder stone: Calculous material. Gross examination only. B. 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 Clinical History Benign prostatic hyperplasia, calculus in bladder Material Received Bladder stone Gross Description Received in two parts. Part A: Received fresh labeled ?bladder stone? are several minute to 0.8 cm in greatest dimension rodriguez and gallagher-rodriguez calculi aggregating 1.4 x 1.2 x 0.1-0.4 cm. The specimen is retained fresh. Gross description only. Part B: Received in formalin labeled ?prostate? are multiple rubbery, cauterized, gallagher-rodriguez and rodriguez-pink fragments and chips of fibromuscular tissue with scant red-maroon blood ranging from 0.3-0.8 cm in greatest dimension and aggregating 2.5 x 2.0 x 0.4 cm, submitted in toto in a cassette labeled B. CEDS This case was reviewed intradepartmentally (B). Date of Service: 04/25/24 EXAMINATION: US RETROPERITONEAL LIMITED (RENAL ONLY) CLINICAL INFORMATION: Hematuria, unspecified. COMPARISON: CT abdomen and pelvis 01/20/2023. TECHNIQUE: Real-time imaging of the kidneys. Limited visualization due to bowel gas. FINDINGS: RIGHT KIDNEY: 11.7 x 5.3 x 5.0 cm (SAG x AP x TRV). No hydronephrosis. 0.4 cm mid pole calculus. Renal cortical thickness is normal. Limited visualization. LEFT KIDNEY: 12.9 x 6.5 x 4.6 cm (SAG x AP x TRV). No hydronephrosis. No renal calculi. Renal cortical thickness is normal. Limited visualization. IMPRESSION: Right renal 0.4 cm nonobstructive calculus. No hydronephrosis. Date of Service: 01/20/23 EXAMINATION: CT ABDOMEN AND PELVIS WITHOUT CONTRAST CLINICAL INFORMATION: Kidney stone COMPARISON: Previous chest CT 12/10/2022 TECHNIQUE: Multidetector volumetric imaging was performed from the superior aspect of the liver through the pubic symphysis. Sagittal and coronal reformatted images were obtained on the technologist's workstation. This CT examination was performed using dose optimization techniques as appropriate, variously including the following: *Automated exposure control *Adjustment of mA and/or kV according to patient size (this includes techniques or standardized protocols for targeted exams where dose is matched to indication/reason for exam; i.e. extremities or head) *Use of iterative reconstruction technique DLP: 336 mGy-cm FINDINGS: LUNG BASES: Small bilateral pulmonary nodules. Largest pulmonary nodule measures 6 mm in the right middle lobe axial image 7. These appear unchanged from November [address] Small bilateral posterior diaphragmatic hernias containing fat. LIVER, GALLBLADDER, AND BILIARY TREE: The liver is normal in size, shape, and attenuation. No focal hepatic lesion or biliary ductal dilatation is present. The gallbladder is unremarkable with no evidence of radiopaque gallstones, gallbladder wall thickening, or obvious pericholecystic inflammatory changes. PANCREAS: Unremarkable. SPLEEN: Unremarkable. ADRENAL GLANDS: Unremarkable. KIDNEYS AND URETERS: The kidneys are normal in size, shape, and attenuation. No hydronephrosis, hydroureter, or calculi seen. No perinephric stranding. BLADDER: Enlarged prostate gland that protrudes into the base of the bladder. Bladder is otherwise unremarkable. GASTROINTESTINAL TRACT: Diverticulosis of the colon. The small and large bowel are otherwise unremarkable. The appendix is unremarkable. ABDOMINAL WALL: No significant hernia is appreciated. LYMPH NODES: Normal. VASCULAR: Severe atherosclerotic disease. PELVIC VISCERA: The prostate gland is slightly enlarged and protrudes into the base of the bladder. Prostate gland measures 3.5 x 4.5 cm in AP and transverse dimension. OSSEOUS STRUCTURES: Degenerative changes of the spine. IMPRESSION: No stone seen. Slightly enlarged prostate gland that protrudes into the base of the bladder. Diverticulosis. Severe atherosclerotic disease. Bilateral pulmonary nodules. These are unchanged from recent chest CT November 2022. Fleischner guidelines were followed. Assessment & Plan Assessment & Plan (1) BPH loc w urin obs/LUTS: Code(s): N40.1 - Benign prostatic hyperplasia with lower urinary tract symptoms Category: Medical (2) Nephrolithiasis: Code(s): N20.0 - Calculus of kidney Category: Medical (3) Urinary urgency: Code(s): R39.15 - Urgency of urination Category: Medical (4) Screening PSA (prostate specific antigen): Code(s): Z12.5 - Encounter for screening for malignant neoplasm of prostate Category: Medical Plan Plan - Continue Vesicare for urinary urgency management. - Discontinue tamsulosin to assess its impact on retrograde ejaculation while monitoring urinary flow. - Continue finasteride to manage prostate size. - Order PSA test and instruct the patient on preparation, including avoiding coffee and sexual activity for 48 hours prior. - Schedule follow-up in one year unless symptoms change. Orders: Orders PSA,Total (Free>4and<10) Today Z12.5 - Encounter for screening for malignant neoplasm of prostate AMB Urinalysis Automated Today Z13.9 - Encounter for screening, unspecified AMB Post Void Residual by ultrasound Today R39.15 - Urgency of urination Medications: Refilled finasteride (Proscar) 5 mg PO DAILY 90 tabs 3RF enlarged prosate solifenacin (Vesicare) 5 mg PO BEDTIME 90 tabs 3RF Discontinued tamsulosin Discontinued Reason: Doctor's Order 0.4 mg PO DAILY 90 caps 8RF Patient Instructions: The patient had an opportunity to ask questions regarding treatment plan. The patient expressed understanding and agreement with the above treatment plan. The patient is aware they should contact our office by phone for worsening of their current condition or the appearance of new symptoms. Compliance is encouraged with any medications and followup testing that is ordered. It is a privilege to be allowed the opportunity to participate in the urologic care of your patient. If you have any questions or concerns regarding treatment for the above conditions please do not hesitate to contact me. The office telephone contact is [phone]. This note is constructed in part using voice recognition software. While every effort has been made to ensure accuracy chemical educator errors may have been included. Yours sincerely, Rodrigo Bhagat MD Scribe Plan - Not visible on output: Patient was informed and verbally consented to the use of an ambient scribe for clinic note documentation during this visit. Coding Diagnoses BPH loc w urin obs/LUTS N40.1 Nephrolithiasis N20.0 Urinary urgency R39.15 Screening PSA (prostate specific antigen) Z12.5 CPT Codes Post Residual Void - PVR CPT Code: 09934-Hhdq Void Residual by ultrasound ([id number])
== END 2025-03-22 10:33 | disposition home or self-care (01) ==
LOC: HO.HUSH 09:48
PROVIDERS: PCP Internal Medicine; Visit Provider Urology
DX: Z13.9 Encounter for screening, unspecified (principal)

== ENCOUNTER → 2025-03-22 09:47 | Outpatient (BNVA) | payer MEDICARE, BC, SELFPAY | PROVIDERS: PCP Internal Medicine; Visit Provider Urology | DX: N40.1 Benign prostatic hyperplasia with lower urinary tract symptoms (principal); N13.8 Other obstructive and reflux uropathy; R39.15 Urgency of urination; N20.0 Calculus of kidney; Z79.899 Other long term (current) drug therapy | CPT/HCPCS: 51798; 81003; 99212 ==

== ENCOUNTER 2025-08-13 07:26 | Outpatient (REF) | payer MEDICARE, BC, SELFPAY ==
[2025-08-13 07:39] LABS: MANUAL DIFF FLAG NO
--- OUTSIDE RECORDS SUMMARY | 2025-08-13 07:50 | XMS_ITS | Clinical Summary ---
Author Organization [facility] Address [address] [place] [id number] Phone Care Team Providers Care Client Development Manager Name Role Phone Guanako Akers MD Primary Care Provider [phone] Allergies No known active allergies Medications atorvastatin (LIPITOR) 80 MG tablet Take 1 tablet by mouth daily. Active fludrocortisone (FLORINEF) 0.1 mg tablet Active tamsulosin (FLOMAX) 0.4 mg Cap Take 1 capsule by mouth daily. Active ezetimibe (ZETIA) 10 mg tablet Take 10 mg by mouth daily. Active therapeutic multivitamin tablet Take 1 tablet by mouth daily. Active Active Problems Problem Noted Date Diagnosed Date On statin therapy 01/15/2022 Assessment & Plan (01/15/2022 10:11 AM EDT): Monitor for muscle tenderness, swelling and weakness Primary osteoarthritis involving multiple joints 08/11/2021 Assessment & Plan (01/24/2022 11:52 AM EDT): I have reassured Shreyas that based on the history, physical examination, laboratory tests and x-rays there are no signs suggestive for systemic rheumatic disease such as rheumatoid arthritis or gouty arthritis at this time. Should his symptoms change I may need to re-evaluate otherwise continue current strategies. Joint protection, energy conservation. Gentle, regular exercise routine. Avoid falls, injuries, overuse. Keep body weight in ideal range for his height. He may benefit from topical cream such as Arnica, Biofreeze, Aspercreme versus medicated patches such as salonpas, icy hot patch 2-3 times daily and if necessary at bedtime x 3 weeks. Assessment & Plan (08/11/2021 10:55 PM EST): I have reassured Shreyas that based on the history and physical examination today there are no signs suggestive for systemic rheumatic disease such as rheumatoid arthritis or gouty arthritis at this time. Should his symptoms change I may need to reevaluate otherwise return in 5 months. Joint protection, energy conservation. Gentle, regular exercise routine. Avoid falls, injuries, overuse. Keep body weight in ideal range for his height. He may benefit from topical cream such as Arnica, Biofreeze, Aspercreme versus medicated patches such as salonpas, icy hot patch 2-3 times daily and if necessary at bedtime x 3 weeks. Trigger index finger of right hand 08/11/2021 Assessment & Plan (01/15/2022 10:11 AM EDT): Use baby oil or moisturizer towards the base of index finger along flexor tendon as it crosses palmar crease and gently massage in a circular spiral fashion aiming toward the distal end of the finger. Gentle, regular exercising and stretching after warm pack. I may need to consider local steroid injection into the flexor tendon sheet if symptoms progress despite above measures Assessment & Plan (08/11/2021 10:52 PM EST): Use baby oil or moisturizer towards the base of index finger along flexor tendon as it crosses palmar crease and gently massage in a circular spiral fashion aiming toward the distal end of the finger. Gentle, regular exercising and stretching after warm pack. I may need to consider local steroid injection into the flexor tendon sheet if symptoms progress despite above measures Vitamin D insufficiency 08/11/2021 Assessment & Plan (08/11/2021 10:53 PM EST): Serum level requested to make sure that he does not require additional supplementation to keep vitamin D in optimal range: 40-45 ng/ml. Bilateral pes planus 08/11/2021 Assessment & Plan (01/24/2022 11:53 AM EDT): Well fitting, supportive shoes, gentle, regular feet exercises. Advised to go to [facility] in [place] to get appropriate shoe wear Assessment & Plan (08/11/2021 10:54 PM EST): Well fitting, supportive shoes, gentle, regular feet exercises. Advised to go to [facility] in [place] to get appropriate shoe wear Family History Relation Status Comments Father Mother Social History Tobacco Use Types Packs/Day Years Used Date Smoking Tobacco: Former Smokeless Tobacco: Never Education Answer Date Recorded Are you interested in more education? Not on matilda e 01/23/2023 Are you concerned about learning? Not on file 01/23/2023 No 01/23/2023 No 01/23/2023 Digital Access Answer Date Recorded No 02/21/2023 No 02/21/2023 Reliable internet access at home? Not on file 02/21/2023 Device with a working camera? Not on file Sex and Gender Information Value Date Recorded Sex Assigned at Male 08/09/2021 9:31 AM EST Legal Sex Male 10:43 AM EDT Gender Identity Male 08/09/2021 9:31 AM EST Sexual Orientation Straight 08/09/2021 9: 31 AM EST Last Filed Vital Signs Vital Sign Reading Time Taken Comments Blood Pressure 126/80 01/15/2022 9:48 AM EDT Pulse - - Temperature - - Respiratory Rate - - Oxygen Saturation - - Inhaled Oxygen Concentration - - Weight 74.8 kg (165 lb) 01/15/2022 9:48 AM EDT w ith shoes Height 167.6 cm (5' 6 ) 01/15/2022 9:48 AM EDT Body Mass Index 26.63 01/15/2022 9:48 AM EDT Plan of Treatment Health Maintenance Due Date Last Done Comments Adult Td,Tdap Booster 1950 LIPID PANEL 1949 DEPRESSION SCREENING 1961 SMOKING Hx and SMOKELESS TOBACCO SCREENING 1962 HEPATITIS C SCREENING 1967 RSV VACCINE (1 - 1-dose 75+ series) 01/09/2024 INFLUENZA VACCINE (#1) 2025 , 06/30/2017, 08/04/2016, Additional history exists COVID-19 VACCINE ( season) 2025 07/03/2021, 01/01/2021, 12/11/2020 ZOSTER VACCINES Completed 11/15/2020, 07/03/2020 PNEUMOCOCCAL VACCINES (50+ years) Completed 07/21/2021, 07/02/2020 HEPATITIS A VACCINES Aged Out No long er eligible based on patient's age to complete this topic HIB VACCINES Aged Out No longer eligi ble based on patient's age to complete this topic IPV VACCINES Aged Out No longer eligi ble based on patient's age to complete this topic MENINGOCOCCAL VACCINES (ACWY) Aged Out No longer eligible based on patient's age to complete this topic MENINGOCOCCAL VACCINES (B) Aged Out N o longer eligible based on patient's age to complete this topic Medical Devices Not on file Insurance [facility] MEDICARE PART A & B [facility] MEDICARE PART A & B [facility] MEDICARE PART A & B Member Subscriber Plan / Payer (Ef fective 2021-Present) Name:Arissiomara Shreyas Member ID:[id number] Relation to Subscriber:Self Name:Shreyas Dewitt Subscriber ID:[id number] Payer ID:[id number] Group ID:Not on file Type:Medicare Address: [employer] [address] [place] [phone] [facility] MEDICARE PART A & B [facility] MEDICARE PART A & [place] [address] [place] [address] MEDICARE PART A & B [facility] MEDICARE PART A & B [facility] MEDICARE PART A & [place] [address] [place] [address] MEDICARE PART A & B Care Teams Client Development Manager Relationship Specialty Start Date End Date Guanako Akers MD [address] [place] [address] Dr Harrell, [place]NN [id number] PCP - General Internal Medicine 05/07/21 Additional Source Comments The information contained in this document represents components of the legal health record. It is not the complete legal health record.[facility]
[2025-08-13 07:52] LABS: Hematocrit 41.8 % (42.0-52.0); Hemoglobin 14.3 g/dl (14.0-18.0); Imm Gran Abs Auto 0.01 X10*3/uL (0.00-0.03); Imm Gran Pct Auto 0.2 % (0.0-0.4); Lymphocytes Absolute Auto 2.2 X10*3/uL (1.2-4.9); Mean Corpuscular HGB Conc 34.2 g/dl (31.0-36.0); Mean Corpuscular Hemoglobin 30.4 pg (27.0-33.0); Mean Corpuscular Volume 88.9 fL (80.0-98.0); NRBC Abs Auto 0.000 X10*3/uL (0.0-0.012); NRBC Pct Auto 0.0 /100WBC (0.0-0.2); Platelet Count 182 X10*3/uL (160-400); Red Blood Count 4.70 X10*6/uL (4.60-5.80); White Blood Count 6.4 X10*3/uL (4.8-10.8)
[2025-08-13 08:22] LABS: Alanine Aminotransferase 27 U/L (0-40); Albumin Level 4.4 g/dL (3.5-5.0); Alkaline Phosphatase 82 U/L (39-117); Anion Gap 10 (12-20); Aspartate Amino Transferase 31 U/L (5-37); Blood Urea Nitrogen 19 mg/dL (9-16); Calcium 9.3 mg/dL (8.4-10.2); Carbon Dioxide 26 mmol/L (22-29); Chloride 108 mmol/L (96-108); Cholesterol 148 mg/dL (<200); Estimated Glomerular Filt Rate > 60; HDL Cholesterol 54 mg/dL (>40); Iron 122 mcg/dL (45-160); Percent Iron Saturation 42 % (15-50); Potassium 3.9 mmol/L (3.3-5.1); Sodium 140 mmol/L (135-145); Total Iron Binding Capacity 288 mcg/dL (228-428); Total Protein 7.6 g/dL (6.5-8.0); Triglycerides 126 mg/dL (<150); Unsaturated Iron Binding 166 ug/dL
== END 2025-08-13 07:27 | disposition home or self-care (01) ==
LOC: HO.LAB 07:26
PROVIDERS: PCP Internal Medicine; Visit Provider Internal Medicine
DX: I25.10 Atherosclerotic heart disease of native coronary artery without angina pectoris (principal); D64.9 Anemia, unspecified; E78.5 Hyperlipidemia, unspecified
CPT/HCPCS: 36415; 80053; 80061; 83540; 85025

== ENCOUNTER 2025-08-16 10:43 | Outpatient (AMB) | payer MEDICARE, BC, SELFPAY ==
--- NOTE | 2025-08-16 10:47 | A.OFFPC_ITS ---
Vital Signs 08/16/25 10:49 Height 5 ft 4 in Weight 164 lb 6 oz BMI 28.2 BP 118/72 Blood Pressure Location Lt brachial Position Sitting Respiration 18 Pulse 66 Pulse Source Pulse Oximeter Temp 97.1 F Temp Source Temporal Artery Scan Pulse Oximetry (%) 98 Oxygen Delivery Method Room Air Intake Visit Reasons: Annual Exam Intake Note: annual exam Resolution Expert Required: No Accompanied by: Self / Same As Patient Allergies No Known Allergies Allergy (Verified 08/16/25 11:00) Medication List - Last Reconciled 08/16/25 by Laura Moe MD albuterol sulfate 90 mcg/actuation 2 puffs inhalation Q4-6H PRN atorvastatin 80 mg PO DAILY ezetimibe 10 mg PO DAILY finasteride (Proscar) 5 mg PO DAILY fludrocortisone 0.1 mg PO DAILY solifenacin (Vesicare) 5 mg PO BEDTIME Tobacco use date assessed: 08/16/25 Fall risk assessment: No Falls in past year Last assessed Fall Risk: 08/16/25 Dental Screening Dental Screen Date: 08/16/25 Did you have a dental visit in the last 12 months?: Yes Did you have a dental problem in the last 6 months where you did not have access to dental care?: No Was dental information given to patient?: Patient has dentist HPI HPI Comments History of Present Illness Details The patient is a 75 year old individual presenting for an annual physical examination. The patient's medication regimen includes an albuterol inhaler as needed, atorvastatin 80 mg and ezetimibe 10 mg for hypercholesterolemia, ProScar 5 mg, and Vesicare 5 mg at bedtime for a urological condition. The patient reports discontinuing fludrocortisone 0.1 mg as advised by the patient's draftsperson, with subsequent stable blood pressure. Past surgical history is positive for nasal surgery and hernia surgery. Family history is notable for the patient's father who had elevated cholesterol and underwent open heart surgery. The patient's mother had no known medical problems. The patient is a former smoker and consumes alcohol a few times per week. Recent laboratory work showed normal kidney function, iron levels, hemoglobin, and liver enzymes, with an excellent total cholesterol level of 148. Immunization history includes the COVID-19 and influenza vaccines about a month ago and the zoster vaccine (Shingrix) in 2020. [facility] Medical History Pulmonary nodule Nephrolithiasis BPH (benign prostatic hyperplasia) Mitral annular calcification Nonrheumatic aortic (valve) stenosis Family history of coronary artery disease Idiopathic hypotension Hyperlipidemia Surgical History History of nasal surgery History of hernia surgery Family History Mother No problems noted. Father High cholesterol History of open heart surgery Brother History of heart artery stent Social History Household Members: Spouse Housing: House Do you presently have visiting nurse or other home services: No Alcohol intake: current Alcohol intake frequency: a few times a week Alcohol type: wine and hard liquor Patient Tobacco Use Status: Former Tobacco user Tobacco use type: Cigarette e-Cigarette/Vaping Use: Never Used Second Hand Smoke Exposure: No service: No Current occupational status: retired Cognitive needs: No Hearing needs: No Vision needs: Yes (glasses) Questionnaire PHQ-9 Over the last 2 weeks, how often have you been bothered by any of the following problems? 1. Little interest or pleasure in doing things: not at all 2. Feeling down, depressed, or hopeless: not at all 3. Trouble falling or staying asleep, or sleeping too much: not at all 4. Feeling tired or having little energy: not at all 5. Poor appetite or overeating: not at all 6. Feeling bad about yourself - or that you are a failure or have let yourself or your family down: not at all 7. Trouble concentrating on things, such as reading the newspaper or watching television: not at all 8. Moving or speaking so slowly that other people could have noticed. Or the opposite - being so fidgety or restless that you have been moving around a lot more than usual: not at all 9. Thoughts that you would be better off or of hurting yourself in some way: not at all Total score: 0 Depression Screening Interpretation: Negative Depression Screening Done: Yes 09889 - PHQ-9 Billing: Yes Source: Developed by Drs. Jaspreet LAnjana Moreno, Steve Willoughby and colleagues, with an educational suzi from [employer]. Thrive Questionnaire Date Thrive assessed: 08/16/25 I am a: Patient What is your living situation today?: I have a steady place to live Within the past 12 months, did the food you bought not last and you didn't have the money to get more?: Never true Within the past 12 months, did you worry whether your food would run out before you got money to buy more?: Never true Do you have trouble paying for medicines?: No Do you have trouble getting transportation to medical appointments?: No Do you have trouble paying your heating and electricity bill?: No Do you have trouble taking care of your child, family member or friend?: No Do you have trouble with day-to-day activities such as bathing, preparing meals, shopping, managing finances, etc.?: No Are you currently unemployed and looking for a job?: No Are you interested in more education?: No Please select the resources that you would like help with: None Currently or been in a relationship where the following occur: No concerns reported THRIVE Score: 0 AUDIT C Alcohol Use Questionnaire (AUDIT-C) 1. How often do you have a drink containing alcohol?: 2-4 times a month Total Score: 2 LINDA-7 AMB Questionnaire LINDA-7 Date LINDA - 7 assessed: 08/16/25 Feeling nervous, anxious, or on edge: 0 = Not at all Not being able to stop or control worryin = Not at all Worrying too much about different things: 0 = Not at all Trouble relaxin = Not at all Being so restless that it is hard to sit still: 0 = Not at all Becoming easily annoyed or irritable: 0 = Not at all Feeling afraid as if something awful might happen: 0 = Not at all Total LINDA-7 score (0-4 normal; 5-9 mild; 10-14 moderate; 15-21 severe): 0 Source: Developed by Drs. Jaspreet Steven, Steve Holland and colleagues, with an educational suzi from [employer]. LINDA-7 Assessment Billing LINDA-7 Assessment Tool: LINDA-7 Assessment 60370 Review of Systems Const All systems reviewed & are unremarkable except as noted in HPI and below Card Denies chest pain at rest, Denies chest pain with activity, Denies edema, Denies irregular heart rhythm, Denies claudication, Denies dyspnea, Denies dyspnea on exertion, Denies orthopnea, Denies paroxysmal nocturnal dyspnea and Denies slow heart rate Resp Denies cough, Denies dyspnea and Denies dyspnea on exertion Neuro Denies lack of coordination Physical exam (Primary Care) Vital Signs: Last Vital Signs Temp 97.1 F 08/16/25 10:49 Pulse 66 08/16/25 10:49 Resp 18 08/16/25 10:49 BP 118/72 08/16/25 10:49 Pulse Ox 98 08/16/25 10:49 Oxygen Delivery Method Room Air 08/16/25 10:49 BMI result Body Mass Index 28.2 Tobacco/Smoking Status: Tobacco use Status Tobacco use date assessed 08/16/25 08/16/25 10:55 Patient Tobacco Use Status Former Tobacco user 08/16/25 10:55 Tobacco use type Cigarette 08/16/25 10:55 e-Cigarette/Vaping Use Never Used 08/16/25 10:55 PHQ-9: PHQ-9 Score PHQ-9: Total score 0 08/16/25 11:05 Depression Screening Interpretation: Negative Thrive Assessment: Date of Thrive Assessment Date Thrive assessed 08/16/25 08/16/25 10:48 Currently or been in a relationship where the following occur: No concerns reported [facility] Head: Yes normal to inspection, Yes normocephalic and Yes atraumatic Ears: external ears normal Eyes General: appearance normal, both eyes and all related structures Eyelids: Yes eyelids normal Conjunctivae: conjunctivae normal Neck Neck: Yes normal visual inspection and Yes supple Resp Effort & Inspection: normal respiratory effort Auscultation: clear to auscultation bilaterally Cardio Jugular venous distension: no JVD Rate: regular rate Rhythm: regular rhythm Heart sounds: S1 normal heart sound present and S2 normal heart sound present GI Inspection: Yes normal to inspection Palpation (GI): Soft to palpation and nontender Auscultation: normal bowel sounds Skin General skin exam: no rashes or lesions noted Neuro General: no focal motor deficits Extrem General: Yes full ROM Psych Appearance: grossly normal Immunizations pneumoc 20-norman conj-dip cr(PF) 0.5 mL IM syringe Performing Provider: Laura Moe MD Performing Location: [facility] Administered by: Natalio Otero CMA on 08/16/25 11:24 Dose Route Admin Location Dispensed Lot Number Expiration Date NDC Huc Ob 0.5 mL IM Left Deltoid 0.5 mL [id number] 06/26/26 8743-7628-88 [employer] /PFIZER Total Dispensed Waste 0.5 mL 0 % VIS Given Date VIS Provided VIS Publication Date 08/16/25 Single Vaccine 25 Eligibility Eligibility Date Funding Source [facility] Eligible-Medicaid 08/16/25 Private Tenivac (PF) 5 Lf unit-2 Lf unit/0.5 mL intramuscular syringe Performing Provider: Laura Moe MD Performing Location: [facility] Administered by: Natalio Otero CMA on 08/16/25 11:25 Dose Route Admin Location Dispensed Lot Number Expiration Date NDC Huc Ob 0.5 mL IM Right Deltoid 0.5 mL [id number] 06/26/27 35709-169-97 [employer] Total Dispensed Waste 0.5 mL 0 % VIS Given Date VIS Provided VIS Publication Date 08/16/25 Single Vaccine 21 Eligibility Eligibility Date Funding Source [facility] Eligible-Medicaid 08/16/25 Private Coding Level of Care Code Est Pt Prev Care >65y(48573) Diagnoses Physical exam Z00.00 Additional Codes LINDA-7 Assessment Billing - LINDA-7 Assessment Tool: LINDA-7 Assessment 13153 ([id number]) PHQ-9 - 04597 - PHQ-9 Billing: Yes ([id number]) Time Spent (min) 30 Assessment & Plan Assessment & Plan (1) Physical exam: Code(s): Z00.00 - Encounter for general adult medical examination without abnormal findings Category: Medical Plan Plan 1. Encounter for general adult medical examination without abnormal findings Z00.00 The patient presented for an annual physical exam. A review of immunizations revealed the patient was due for a tetanus booster and had not yet received the PCV 20 pneumonia vaccine. After discussion, the patient consented to receive both a Td and the PCV 20 vaccine during today's visit. 2. Medication Management The patient reported discontinuing fludrocortisone 0.1 mg as advised by the patient's draftsperson. As the patient's blood pressure has been stable, this medication will be removed from the patient's active medication list. The patient will continue all other current medications as prescribed. Orders: Orders Lipid Panel 1 Year E78.5 - Hyperlipidemia, unspecified Comprehensive [place]. Panel Fast 1 Year I95.0 - Idiopathic hypotension Td Immunization Today Z23 - Encounter for immunization Pneumococcal 20 Immunization Today Z23 - Encounter for immunization Medications: Discontinued fludrocortisone Discontinued Reason: Patient Completed Course 0.1 mg PO DAILY 90 tabs 3RF
[2025-08-16 10:49] VITALS: BP 118/72; PULSE 66; RESP 18; TEMP 36.2; O2SAT 98; BMI 28.2
--- OUTSIDE RECORDS SUMMARY | 2025-08-16 16:11 | XMS_ITS | Clinical Summary ---
Author Organization [facility] Address [address] [place] [id number] Phone Care Team Providers Care Supervisor Cd Area Name Role Phone Guanako Akers MD Primary Care Provider [phone] Allergies No known active allergies Medications atorvastatin [...] regular feet exercises. Advised to go to [facility] in [place] to get appropriate shoe wear Assessment & Plan (08/11/2021 10:54 PM EST): Well fitting, supportive shoes, gentle, regular feet exercises. Advised to go to [facility] in [place] to get appropriate shoe wear Family History [...] topic Medical Devices Not on file Insurance [facility] MEDICARE PART A & B [facility] MEDICARE PART A & B [facility] MEDICARE PART A & B Member Subscriber Plan / Payer (Ef fective 2021-Present) Name:Arissiomara Shreyas Member ID:[id number] Relation to Subscriber:Self Name:Shreyas Dewitt Subscriber ID:[id number] Payer ID:[id number] Group ID:Not on file Type:Medicare Address: [employer] [address] [place] [phone] [facility] Address: [facility] [address] [place] [address] MEDICARE PART A & B [facility] MEDICARE PART A & [place] [address] [address] [address] MEDICARE PART A & B [facility] MEDICARE PART A & B [facility] MEDICARE PART A & [place] [address] [address] [place] [address] MEDICARE PART A & B Care Teams Supervisor Cd Area Relationship Specialty Start Date End Date Guanako Akers MD [address] [place] [address] Dr Harrell, [place] [id number] PCP - General Internal Medicine 05/07/21 Additional Source Comments The information contained in this document represents components of the legal health record. It is not the complete legal health record.[facility]
== END 2025-08-16 11:23 | disposition home or self-care (01) ==
LOC: HO.HMCH 10:44
PROVIDERS: PCP Internal Medicine; Visit Provider Internal Medicine
DX: Z00.00 Encounter for general adult medical examination without abnormal findings (principal); Z23 Encounter for immunization

== ENCOUNTER → 2025-08-16 10:43 | Outpatient (BNVA) | payer MEDICARE, BC, SELFPAY | PROVIDERS: PCP Internal Medicine; Visit Provider Internal Medicine | DX: Z00.00 Encounter for general adult medical examination without abnormal findings (principal); E78.5 Hyperlipidemia, unspecified; I95.0 Idiopathic hypotension; Z23 Encounter for immunization; Z13.31 Encounter for screening for depression; Z13.39 Encounter for screening examination for other mental health and behavioral disorders | CPT/HCPCS: 90471; 90677; 90714; 96127; 99397 ==